=== PATIENT | male | born 1975 | race Caucasian/White ===

== ENCOUNTER 2018-02-19 05:41 | Emergency (ER) | payer OTHER ==
[2018-02-19] MEDS ORDERED: LORAZEPAM 1 MG TABLET ONE (06:26)
[2018-02-19 06:38] LABS: Absolute Lymphocytes (CBC) 2.4 K/uL (0.7-4.9); Absolute Monocytes 0.6 K/uL (0.1-1.3); Absolute Neutrophil 5.9 K/uL (1.8-8.0); Basophils % 0.7 % (0-1.3); Eosinophils % 1.2 % (0-4.4); Hematocrit 44.4 % (39.6-49.0); Lymphocytes % 26.9 % (15.3-44.8); MCH 33.6 pg (27.0-35.0); MCV 96.9 fL (80-100); MPV 10.3 fL (7.6-11.3); Monocytes % 6.2 % (3.3-12.3); RBC Red Blood Cell Count 4.58 M/uL (4.33-5.43)
[2018-02-19 06:43] LABS: Albumin 3.2 g/dL (3.4-5.0); Bilirubin Direct 0.1 mg/dL (0-0.2); Bilirubin Total 0.3 mg/dL (0.2-1.0); Potassium 4.5 mmol/L (3.5-5.1); Protein, Total 8.1 g/dL (6.4-8.2)
[2018-02-19 08:23] LABS: Barbiturates NEGATIVE (NEGATIVE); Benzodiazepines NEGATIVE (NEGATIVE); Cocaine NEGATIVE (NEGATIVE); METHAMPHETAM NEGATIVE (NEGATIVE); Methadone NEGATIVE (NEGATIVE); Opiates NEGATIVE (NEGATIVE); Phencyclidine NEGATIVE (NEGATIVE); THC Cannibis NEGATIVE (NEGATIVE)
[2018-02-19 14:54] LABS: Urine Blood 3+ (NEG); Urine Glucose NEGATIVE (NEG); Urine Protein 2+ (NEG); Urine pH 6.5 (5.0-7.0)
[2018-02-19] MEDS ORDERED: NICOTINE 21 MG/PAT TD ONE (14:58)
--- NOTE | 2018-02-20 10:11 | EDPHYS ---
Physician Documentation [facility] Name: Gil Shahid Age: 42 yrs Sex: Male : 1975 Arrival Date: 02/19/2018 Time: 05:42 Bed 6 Private MD: ED Physician Je Navarro HPI: 02/19 06:52 This 42 yrs old Male presents to ER via EMS with complaints of Psych Problem. kav 06:52 The patient presents to the emergency department with depression, psychosis, has kav experienced auditory hallucinations, has delusions, . Onset: The symptoms/episode began/occurred at an unknown time. Past psychiatric history: Prior diagnosis: schizophrenia. Associated signs and symptoms: Pertinent positives; anxiety, delusions, hallucinations. Severity of symptoms: At their worst the symptoms were moderate just prior to arrival. The patient has experienced similar episodes in the past, a few times. . Historical: - Allergies: 05:54 PENICILLINS; ak1 - Home Meds: 05:54 Latuda oral oral [Active]; ak1 - PMHx: 05:54 AIDS; Depression; Schizophrenia; ak1 - PSHx: 05:54 Unable to obtain; ak1 - Immunization history:: Adult Immunizations unknown. - Social history:: Smoking status: unknown. - Ebola Screening: : No symptoms or risks identified at this time. - Family history:: not pertinent. - Hospitalizations: : No recent hospitalization is reported. ROS: 06:55 Constitutional: Negative for fever, chills, and weight loss, Eyes: Negative for injury, kav pain, redness, and discharge, ENT: Negative for injury, pain, and discharge, Neck: Negative for injury, pain, and swelling, Cardiovascular: Negative for chest pain, palpitations, and edema, Respiratory: Negative for shortness of breath, cough, wheezing, and pleuritic chest pain, Abdomen/GI: Negative for abdominal pain, nausea, vomiting, diarrhea, and constipation, Back: Negative for injury and pain, : Negative for injury, bleeding, discharge, and swelling, MS/Extremity: Negative for injury and deformity, Skin: Negative for injury, rash, and discoloration, Neuro: Negative for headache, weakness, numbness, tingling, and seizure, Allergy/Immunology: Negative for hives, rash, and allergies, Endocrine: Negative for neck swelling, polydipsia, polyuria, polyphagia, and marked weight changes, Hematologic/Lymphatic: Negative for swollen nodes, abnormal bleeding, and unusual bruising. 06:55 Psych: Positive for anxiety, auditory hallucinations. Exam: 06:55 Constitutional: This is a well developed, well nourished patient who is awake, alert, kav and in no acute distress. Head/Face: Normocephalic, atraumatic. Eyes: Pupils equal round and reactive to light, extra-ocular motions intact. Lids and lashes normal. Conjunctiva and sclera are non-icteric and not injected. Cornea within normal limits. Periorbital areas with no swelling, redness, or edema. ENT: Nares patent. No nasal discharge, no septal abnormalities noted. Tympanic membranes are normal and external auditory canals are clear. Oropharynx with no redness, swelling, or masses, exudates, or evidence of obstruction, uvula midline. Mucous membranes moist. Neck: Trachea midline, no thyromegaly or masses palpated, and no cervical lymphadenopathy. Supple, full range of motion without nuchal rigidity, or vertebral point tenderness. No Meningismus. Chest/axilla: Normal chest wall appearance and motion. Nontender with no deformity. No lesions are appreciated. Cardiovascular: Regular rate and rhythm with a normal S1 and S2. No gallops, murmurs, or rubs. Normal PMI, no JVD. No pulse deficits. Respiratory: Lungs have equal breath sounds bilaterally, clear to auscultation and percussion. No rales, rhonchi or wheezes noted. No increased work of breathing, no retractions or nasal flaring. Abdomen/GI: Soft, non-tender, with normal bowel sounds. No distension or tympany. No guarding or rebound. No evidence of tenderness throughout. Back: No spinal tenderness. No costovertebral tenderness. Full range of motion. Skin: Warm, dry with normal turgor. Normal color with no rashes, no lesions, and no evidence of cellulitis. MS/ Extremity: Pulses equal, no cyanosis. Neurovascular intact. Full, normal range of motion. Neuro: Awake and alert, GCS 15, oriented to person, place, time, and situation. Cranial nerves II-XII grossly intact. Motor strength 5/5 in all extremities. Sensory grossly intact. Cerebellar exam normal. Normal gait. 06:55 Psych: exam not indicated, Behavior/mood is cooperative, anxious, Affect is calm, Oriented to Judgement / Insight is impaired. Delusions/hallucinations Vital Signs: 05:44 BP 127 / 89; Pulse 95; Resp 20; Temp 97.8(O); Pulse Ox 97% on R/A; Weight 156.94 kg ak1 (R); Height 6 ft. 3 in. (190.50 cm) (R); Pain 0/10; 07:10 BP 114 / 84; Pulse 79; Resp 18 S; Temp 98.3(O); Pulse Ox 95% on R/A; Pain 0/10; aa5 08:10 BP 120 / 73; Pulse 73; Resp 18 S; Pulse Ox 98% on R/A; Pain 0/10; aa5 10:11 BP 117 / 81; Pulse 80; Resp 20 S; Pulse Ox 98% on R/A; aa5 13:51 BP 136 / 99; Pulse 83; Resp 18 S; Temp 98.3(TE); Pulse Ox 100% on R/A; Pain 0/10; aa5 16:55 BP 126 / 77; Pulse 82; Resp 16 S; Temp 98.0(TE); Pulse Ox 99% on R/A; Pain 0/10; aa5 20:46 BP 110 / 66; Pulse 79; Resp 18; Pulse Ox 100% on R/A; mt 02/20 05:38 BP 114 / 72; Pulse 82; Resp 18; Pulse Ox 98% on R/A; mt 07:30 BP 118 / 78; Pulse 84; Resp 18; Pulse Ox 99% on R/A; ph 10:30 BP 122 / 82; Pulse 83; Resp 18; Temp 97.8; Pulse Ox 97% on R/A; ph 02/19 05:44 Body Mass Index 43.25 (156.94 kg, 190.50 cm) ak1 MDM: 02/19 06:30 Medical screening is not applicable. ka 06:55 Data reviewed: vital signs, nurses notes. kav 10:32 ED course: patient with paranoid and delusional behavior. [facility] here to evaluate [facility] patient and recommends inpatient behavioral facility for further evaluation and treatment.. 11:45 ED course: [facility] reports that they are "...at capacity". kav 13:45 ED course: continuing to find acceptance at inpatient psyche facility. kabrayan 17:57 Transition of care: After a detail discussion of the patient's case, care is kabrayan transferred to Shelli WINKLER. 02/20 09:50 ED course: Consultation with family caseworker Tamera at [facility]. Patient does not have pm1 AIDS/HIV. It is a part of his paranoia and delusions. He believes that he is taking Latuda for HIV and AIDS. Tamera recommended transfer due to patient reporting to her that he is afraid that his father would kill him and that he might just as well go ahead and kill himself. RN checked with pharmacies where patient has his medications filled. Patient does not take any HIV or AIDS medications. Patient has not filled his medications since July 2017. Contacted patient's sister and she is not aware of her brother having HIV or AIDS. 09:59 Physician consultation: MD March was called at 10:00, was contacted at 10:00, pm1 regarding regarding transfer, patient's condition, and will see patient. 02/19 05:52 Order name: Basic Metabolic Panel; Complete Time: 07:02 02/19 05:52 Order name: CBC with Diff; Complete Time: 07:02 02/19 05:52 Order name: ETOH Level; Complete Time: 07:02 02/19 05:52 Order name: Hepatic Function; Complete Time: 07:02 02/19 05:52 Order name: Urine Drug Screen; Complete Time: 08:38 02/19 08:14 Order name: Urine Dipstick--Ancillary (enter results); Complete Time: 15:18 eb 02/19 15:18 Interpretation: Abnormal. jose j 02/19 05:52 Order name: IV Saline Lock; Complete Time: 06:14 02/19 05:52 Order name: Labs collected and sent; Complete Time: 06:14 gs 02/19 11:27 Order name: Diet Regular; Complete Time: 11:27 aa5 02/19 14:59 Order name: Diet Regular; Complete Time: 15:00 aa5 02/20 07:21 Order name: Diet Regular; Complete Time: 07:35 ph 02/19 05:52 Order name: Urine Dipstick-Ancillary (obtain specimen); Complete Time: 08:10 gs Administered Medications: 02/19 06:22 Drug: Ativan 2 mg Route: PO; ak1 06:23 Follow up: Response: No adverse reaction ak1 14:57 CANCELLED (Physician Discretion): Nicotine 14 mg/24 hr 1 patches Transdermal once aa5 14:58 Drug: Nicotine 21 mg/24 hr 1 patches {Note: placed to left arm per pt's request (not aa5 chest).} Route: Transdermal; Site: anterior chest wall; Disposition: 02/21 06:48 Co-signature as Attending Physician, Je Navarro MD. Disposition: 02/20/18 10:09 Transfer ordered to Psych Facility. Diagnosis are Suicidal ideations, Hallucinations, unspecified. - Reason for transfer: Specialty. - Accepting physician is Dr. March at [facility]. - Condition is Stable. - Problem is new. - Symptoms have improved. Signatures: Dispatcher [employer] EDMS Domitila Earl, BARREL LINER BARREL LINER Sara Bailey RN RALF aa5 Rimma Olivas RN RN ak1 Faina Alejandra RN RALF John Hudson, RETAIL MORTGAGE BANKER RETAIL MORTGAGE BANKER pm1 Je Navarro MD MD Corrections: (The following items were deleted from the chart) 02/19 14:57 14:45 Nicotine Patch 14 mg/24 hr 1 patches Transdermal once ordered. beto aa5 02/20 11:06 10:09 02/20/2018 10:09 Transfer ordered to Psych Facility. Diagnosis is Suicidal ph ideations; Hallucinations, unspecified. Reason for transfer: Specialty. Accepting physician is Dr. March at [facility]. Condition is Stable. Problem is new. Symptoms have improved. pm1
--- NOTE | 2018-02-20 10:11 | ER ---
Nurse's Notes [facility] Name: Gil Shahid Age: 42 yrs Sex: Male : 1975 Arrival Date: 02/19/2018 Time: 05:42 Bed 6 Private MD: Diagnosis: Suicidal ideations;Hallucinations, unspecified Presentation: 02/19 05:45 Presenting complaint: EMS states: pt is not taking his psych medications. pt lives with ak1 his dad, family does not want pt at the house. pt and EMS denies suicidal ideations, denies homicidal ideations. pt stated the voices in his ear told him to take his latuda. Transition of care: patient was not received from another setting of care. Onset of symptoms was February 19, 2018. Risk Assessment: Do you want to hurt yourself or someone else? Patient reports no desire to harm self or others. Initial Sepsis Screen: Does the patient meet any 2 criteria? No. Patient's initial sepsis screen is negative. Does the patient have a suspected source of infection? No. Patient's initial sepsis screen is negative. Care prior to arrival: None. 05:45 Method Of Arrival: EMS: [facility] ak1 05:45 Acuity: MEGA 2 ak1 Triage Assessment: 05:54 General: Appears in no apparent distress. Behavior is anxious. Pain: Denies pain. EENT: ak1 No signs and/or symptoms were reported regarding the EENT system. Neuro: Level of Consciousness is awake, alert, obeys commands, Oriented to person, place, Moves all extremities. Gait is steady, Speech is normal. Cardiovascular: No deficits noted. Respiratory: No deficits noted. GI: No signs and/or symptoms were reported involving the gastrointestinal system. : No signs and/or symptoms were reported regarding the genitourinary system. Derm: No signs and/or symptoms reported regarding the dermatologic system. Musculoskeletal: No signs and/or symptoms reported regarding the musculoskeletal system. Historical: - Allergies: 05:54 PENICILLINS; ak1 - Home Meds: 05:54 Latuda oral oral [Active]; ak1 - PMHx: 05:54 AIDS; Depression; Schizophrenia; ak1 - PSHx: 05:54 Unable to obtain; ak1 - Immunization history:: Adult Immunizations unknown. - Social history:: Smoking status: unknown. - Ebola Screening: : No symptoms or risks identified at this time. - Family history:: not pertinent. - Hospitalizations: : No recent hospitalization is reported. Screenin:57 Abuse screen: Denies threats or abuse. Denies injuries from another. Nutritional ak1 screening: No deficits noted. Tuberculosis screening: No symptoms or risk factors identified. Fall Risk None identified. Assessment: 05:57 Reassessment: Patient appears in no apparent distress at this time. No changes from ak1 previously documented assessment. see triage assessment. 07:05 General: Appears comfortable, obese, Behavior is calm, cooperative, Pt states "I took aa5 latuda yesterday". . Pain: Denies pain. Neuro: Level of Consciousness is alert, obeys commands, Drowsy. Oriented to person, place, time, situation. Cardiovascular: Heart tones S1 S2 present Rhythm is regular. Respiratory: Airway is patent Respiratory effort is even, unlabored, Respiratory pattern is regular, symmetrical, Breath sounds are clear bilaterally. GI: Abdomen is obese, Bowel sounds present X 4 quads. Abd is soft and non tender X 4 quads. : No signs and/or symptoms were reported regarding the genitourinary system. EENT: No signs and/or symptoms were reported regarding the EENT system. Derm: Skin is pink, warm \\T\\ dry. Musculoskeletal: Range of motion: intact in all extremities. 07:05 Reassessment: Pt notified of wait time for lab results, pt notified of need for urine aa5 specimen collection. . 08:10 Reassessment: Patient and/or family updated on plan of care and expected duration. Pain aa5 level reassessed. Patient is alert, oriented x 3, equal unlabored respirations, skin warm/dry/pink. Patient denies pain at this time. UDS sent to lab. . 09:10 Reassessment: Pt resting in bed with eyes closed, respirations even and unlabored, skin aa5 is pink/warm/dry. . 10:00 Reassessment: Patient is alert, oriented x 3, equal unlabored respirations, skin aa5 warm/dry/pink. Pt sitting up in bed. Pt no longer drowsy. Pt is delusional. Pt denies suicidal or homicidal ideations. . 10:30 Reassessment: [facility] lumber trimmer at bedside speaking to pt. . aa5 11:25 Reassessment: Patient is alert, oriented x 3, equal unlabored respirations, skin aa5 warm/dry/pink. Pt sitting up in bed watching TV. Pt given food tray. . 12:00 Reassessment: Patient is alert, oriented x 3, equal unlabored respirations, skin aa5 warm/dry/pink. Pt ate 100% of food, pt tolerated well. . 12:54 Reassessment: Pt resting in bed with eyes closed, respirations even and unlabored, skin aa5 is pink/warm/dry. . 13:53 Reassessment: Patient is alert, oriented x 3, equal unlabored respirations, skin aa5 warm/dry/pink. Pt sitting up in bed watching TV. Pt eating a snack at this time. . 14:40 Reassessment: Patient is alert, oriented x 3, equal unlabored respirations, skin aa5 warm/dry/pink. Pt requesting to go outside and smoke, pt was notified that this is a smoke-free campus and I told pt that I will ask provider for nicotine patch. Pt verbalized understanding and agrees to nicotine patch. Awaiting approval to psych facility, pt notified of wait, pt verbalized understanding. Pt appears calm. . 15:04 Reassessment: Pt resting in bed with eyes closed, respirations even and unlabored, skin aa5 is pink/warm/dry. . 16:56 Reassessment: Patient is alert, oriented x 3, equal unlabored respirations, skin aa5 warm/dry/pink. Pt sitting up in bed eating, pt tolerating well. Awaiting approval to psych facility . 18:00 Reassessment: Pt resting in bed with eyes closed, respirations even and unlabored, skin aa5 is pink/warm/dry. . 19:10 General: Appears in no apparent distress. Behavior is calm, cooperative. Pain: Denies ea pain. Neuro: Level of Consciousness is awake, alert, obeys commands, Oriented to person, place, time, situation. Cardiovascular: Patient's skin is warm and dry. Respiratory: Airway is patent Respiratory effort is even, unlabored, Respiratory pattern is regular, symmetrical. Derm: Skin is pink, warm \\T\\ dry. Musculoskeletal: Circulation, motion, and sensation intact. 19:15 Reassessment: Report given to Harjinder at [facility] . aa5 22:00 Reassessment: Patient and/or family updated on plan of care and expected duration. Pain ea level reassessed. Patient is alert, oriented x 3, equal unlabored respirations, skin warm/dry/pink. 02/20 01:00 Reassessment: Patient and/or family updated on plan of care and expected duration. Pain ea level reassessed. Pt resting with eyes closed, respirations even and unlabored. Chest expansions even and symmetrical. No s/s of pain or discomfort noted at this time. 03:06 Reassessment: Patient and/or family updated on plan of care and expected duration. Pain ea level reassessed. Patient is alert, oriented x 3, equal unlabored respirations, skin warm/dry/pink. Patient denies pain at this time. 04:57 Reassessment: Patient and/or family updated on plan of care and expected duration. Pain ea level reassessed. Patient is alert, oriented x 3, equal unlabored respirations, skin warm/dry/pink. 05:27 Reassessment: Patient and/or family updated on plan of care and expected duration. Pain ea level reassessed. Patient is alert, oriented x 3, equal unlabored respirations, skin warm/dry/pink. 07:30 Reassessment: Patient appears in no apparent distress at this time. Patient and/or ph family updated on plan of care and expected duration. Pain level reassessed. Pt appears to be sleeping w/ equal unlabored respirations. 08:30 Reassessment: Patient appears in no apparent distress at this time. Patient and/or ph family updated on plan of care and expected duration. Pain level reassessed. Patient is alert, oriented x 3, equal unlabored respirations, skin warm/dry/pink. Pt awake, denies pain, awaiting breakfast, MEHRDAD Lopez at bedside to speak w/ pt. 09:15 Reassessment: nurse to nurse report given to Errol at [facility] in [place], she ph stated that they will likely accept pt but since pt has AIDS listed as a hx that he will have to bring his own medication, when pt questioned about medications he states, " I take Latuda and that's it.". 09:45 Reassessment: Patient appears in no apparent distress at this time. Patient and/or ph family updated on plan of care and expected duration. Pain level reassessed. Patient is alert, oriented x 3, equal unlabored respirations, skin warm/dry/pink. Spoke w/ [facility] who reports that pt's only medications are psychiatric meds, also spoke w/ pt's sister Nicole Shahid who reports that the only known hx that the pt has is paranoid/delusional schizophernia. 11:03 Reassessment: Patient appears in no apparent distress at this time. Patient and/or ph family updated on plan of care and expected duration. Pain level reassessed. Patient is alert, oriented x 3, equal unlabored respirations, skin warm/dry/pink. Report given to [facility], pt transferred to [facility] in [place]. Psych: 02/19 05:58 Subjective: Patient's mood is anxious Delusions are denied, Hallucinations are ak1 auditory. Objective: Patient is cooperative, Speech is normal. Objective: Affect is flat. Suicide Risk Assessment: Sad Person Scale: Sex of patient: Male: Score 1 point. Age of patient: Score 0 point if patient falls outside of specified age parameters. Safety Checks: pt denies suicidal or homicidal ideations. pt stated [facility] usually picks him up from home and drives him to a facility. Commitment: Patient will be a voluntary commitment. 06:23 Interventions: pt denies suicidal or homicidal ideations. ak1 11:00 Pt denies substance abuse. aa5 Vital Signs: 05:44 BP 127 / 89; Pulse 95; Resp 20; Temp 97.8(O); Pulse Ox 97% on R/A; Weight 156.94 kg ak1 (R); Height 6 ft. 3 in. (190.50 cm) (R); Pain 0/10; 07:10 BP 114 / 84; Pulse 79; Resp 18 S; Temp 98.3(O); Pulse Ox 95% on R/A; Pain 0/10; aa5 08:10 BP 120 / 73; Pulse 73; Resp 18 S; Pulse Ox 98% on R/A; Pain 0/10; aa5 10:11 BP 117 / 81; Pulse 80; Resp 20 S; Pulse Ox 98% on R/A; aa5 13:51 BP 136 / 99; Pulse 83; Resp 18 S; Temp 98.3(TE); Pulse Ox 100% on R/A; Pain 0/10; aa5 16:55 BP 126 / 77; Pulse 82; Resp 16 S; Temp 98.0(TE); Pulse Ox 99% on R/A; Pain 0/10; aa5 20:46 BP 110 / 66; Pulse 79; Resp 18; Pulse Ox 100% on R/A; mt 11 05:38 BP 114 / 72; Pulse 82; Resp 18; Pulse Ox 98% on R/A; mt 07:30 BP 118 / 78; Pulse 84; Resp 18; Pulse Ox 99% on R/A; ph 10:30 BP 122 / 82; Pulse 83; Resp 18; Temp 97.8; Pulse Ox 97% on R/A; ph 02/19 05:44 Body Mass Index 43.25 (156.94 kg, 190.50 cm) ak1 ED Course: 02/19 05:42 Patient arrived in ED. ds1 05:44 Rimma Olivas, RN is Primary Nurse. ak1 05:52 Triage completed. ak1 05:54 Arm band placed on Patient placed in an exam room, on a stretcher, Patient notified of ak1 wait time. 05:57 Patient has correct armband on for positive identification. Bed in low position. Call ak1 light in reach. Side rails up X2. Pulse ox on. NIBP on. 06:14 Inserted saline lock: 24 gauge in left wrist, using aseptic technique. Blood collected. ak1 06:20 Basic Metabolic Panel Sent. ds4 06:20 Hepatic Function Sent. ds4 06:20 CBC with Diff Sent. ds4 06:20 ETOH Level Sent. ds4 06:30 [facility] kav 06:30 Je Navarro MD is Attending Physician. kav 08:45 called and spoke with Katie at the [facility]/ She will page the screener to eb come evaluate the patient. 10:38 faxed patients chart and demographics to the following facilities in the attempt to eb transfer patient as recommended by the [facility] screener: [facility]. [facility], [facility], [facility], [place], [facility], [facility], [facility], [facility], [facility], and [facility]. 10:52 Adriana from [facility] called and said they do not have any beds at this time. eb 14:41 IV discontinued, intact, bleeding controlled, No redness/swelling at site. Pressure aa5 dressing applied, IV was dc'd per pt's request. 18:08 No provider procedures requiring assistance completed. aa5 19:22 Report given to RALF Joaquin and RALF Sheehan. aa5 02/20 07:21 called [facility] and spoke with Lata. She will page the dr again for doc to doc. gm 07:46 Primary Nurse role handed off by Rimma Olivas RN sv 07:46 Emily New, RN is Primary Nurse. sv 08:29 Primary Nurse role handed off by Emily New RN sv 08:29 Faina Alejandra, RALF is Primary Nurse. sv 08:53 connected the nurse from [facility] to do nurse to nurse on patient. gm 09:57 connected john BEARD to do doc to doc for patient transfer. 10:03 administrative approval was given by [facility]. Administered Medications: 02/19 06:22 Drug: Ativan 2 mg Route: PO; ak1 06:23 Follow up: Response: No adverse reaction ak1 14:57 CANCELLED (Physician Discretion): Nicotine 14 mg/24 hr 1 patches Transdermal once aa5 14:58 Drug: Nicotine 21 mg/24 hr 1 patches {Note: placed to left arm per pt's request (not aa5 chest).} Route: Transdermal; Site: anterior chest wall; Outcome: 02/20 10:09 ER care complete, transfer ordered by . pm1 11:05 Transferred by ground EMS [place]. to other acute care facility, Transfer form ph completed. 11:05 Condition: stable 11:05 Instructed on the need for transfer. 11:06 Patient left the ED. ph Signatures: Emily New, RN RALF Domitila Earl FNP FNP kav [place], Demi ds1 Sara Keita RN RN Alexey Lopez ds4 Rimma Olivas, RN RN ak1 Faina Alejandra RN RN John Hudson, MEHRDAD TREATING ENGINEER HELPER pm1 Pati Pagan mt, Elena, RN RN ea Botello, Elizabeth eb Moya, Gabriella Corrections: (The following items were deleted from the chart) 02/19 11:32 10:00 Reassessment: Patient is alert, oriented x 3, equal unlabored respirations, skin aa5 warm/dry/pink. Pt sitting up in bed. Pt no longer drowsy. Pt is delusional. . aa5 15:06 14:40 Reassessment: Patient is alert, oriented x 3, equal unlabored respirations, skin aa5 warm/dry/pink. Pt requesting to go outside and smoke, pt was notified that this is a smoke-free campus and I told pt that I will ask provider for was nicotine patch. Pt verbalized understanding and agrees to nicotine patch. . aa5 16:57 14:40 Reassessment: Patient is alert, oriented x 3, equal unlabored respirations, skin aa5 warm/dry/pink. Pt requesting to go outside and smoke, pt was notified that this is a smoke-free campus and I told pt that I will ask provider for nicotine patch. Pt verbalized understanding and agrees to nicotine patch. . aa5
[2018-02-20 11:38] VITALS: BP 122/82; TEMP 97.8; O2SAT 97
== END 2018-02-20 11:06 ==
LOC: ER 05:41
DX: F20.9 Schizophrenia, unspecified (principal); R45.851 Suicidal ideations
CPT/HCPCS: 36415; 80048; 80076; 80307; 80320; 81003; 85025; 99285

== ENCOUNTER 2018-08-07 18:08 | Emergency (ER) | payer OTHER ==
[2018-08-07 18:46] LABS: Barbiturates NEGATIVE (NEGATIVE); Benzodiazepines NEGATIVE (NEGATIVE); Cocaine NEGATIVE (NEGATIVE); METHAMPHETAM NEGATIVE (NEGATIVE); Methadone NEGATIVE (NEGATIVE); Opiates NEGATIVE (NEGATIVE); Phencyclidine NEGATIVE (NEGATIVE); THC Cannibis NEGATIVE (NEGATIVE)
[2018-08-07] MEDS ORDERED: ZIPRASIDONE MESYLA 20 MG/VIAL IM ONE (18:54)
[2018-08-07] MEDS ORDERED: WATER FOR INJ,STERILE 10 ML ONE (18:55)
[2018-08-07 19:28] LABS: Urine Blood 2+ (NEG); Urine Glucose NEGATIVE (NEG); Urine Protein NEGATIVE (NEG); Urine Specific Gravity 1.015 (1.005-1.030)
--- OUTSIDE RECORDS SUMMARY | 2018-08-07 19:51 | XMS REPORT ---
:1975 Author Organization [facility] Address Formerly [facility] [address] [place] [address] Care Team Providers Name Role Phone UNKNOWN, REFFERING Primary Care Provider Unavailable MARCIE BOWERS M.D. Unavailable Unavailable Problems This patient has no known problems. Allergies, Adverse Reactions, Alerts This patient has no known allergies or adverse reactions. Medications This patient has no known medications. Results Test Description Test Time Test Comments Text Results Atomic Results Result Comments Valproic Acid (Depakote),S 2017-02-21 08:19:00 Test Item Value Reference Range Comments Valproic Acid (test code=VALP) 74.6 ug/mL 50.0-100.0 Valproic Acid (Depakote),[id number] 11:01:00 Test Item Value Reference Range Comments Valproic Acid (test code=VALP) 46.8 ug/mL 50.0-100.0 Urinalysis [id number] 15:02:00 Test Item Value Reference Range Comments Color (test code=COLOR) Yellow Yellow,Straw,Pl yellow Clarity (test code=CLAR) Clear Clear Specific [place] (test code=SPGR) 1.020 1.001-1.035 pH (test code=PH) 6.5 5.0-9.0 Ketone (test code=KET) 5 mg/dL Negative Glucose (test code=GLUCUR) Negative mg/dL Negative Protein (test code=PROT) Negative mg/dL Negative Bilirubin (test code=BILI) Negative mg/dL Negative Occult Blood (test code=UDOB) Negative Negative Urobilinogen (test code=UROB) 8.0 mg/dL 0.2-1.0 Nitrite (test code=NIT) Negative Negative Leuk Esterase (test code=LEUK) Small Negative Micros Exam (test code=MEXAM) Indicated Epithelial Cells (test code=EPI) 0-2 /LPF 0-30 WBC, Urine (test code=UWBC) 0-5 /HPF 0-5 RBC, Urine (test code=URBC) 0-3 /HPF 0-5 Mucous, Urine (test code=UMUC) Trace /HPF Bacteria (test code=BACT) Few /HPF Valproic Acid (Depakote),[id number] 14:11:00 Test Item Value Reference Range Comments Valproic Acid (test code=VALP) 24.3 ug/mL 50.0-100.0 RPR, [id number] 04:22:00 Test Item Value Reference Range Comments RPR (test code=RPR) Non-Reactive Non-Reactive Thyroid Stimulating Hormone (TSH)2017-02-07 19:54:00 Test Item Value Reference Range Comments TSH (test code=TSH) 1.67 mIU/mL 0.270-4.200 Lipid [id number] 19:48:00 Test Item Value Reference Range Comments Cholesterol (test 188 mg/dL 0-200 code=CHOL) Triglycerides (test 193 mg/dL 9-200 code=TRIG) HDL (test code=HDL) 33 mg/dL 40-60 Chol/HDL (test 5.7 Ratio 0.0-5.0 code=CHOLPHDL) LDL, Calculated (test 116 0-130 (NOTE)RISK OF HEART code=LDLC) DISEASEPublished by Citizen Of The [place] Heart AssociationAnalyte Optimal Boderline Increased RiskCHOL <200 200-239 >240TRIG <150 150-199 >200HDL Male: >60 <40HDL Female: >60 <50LDL <100 130-159 >160LDL NEAR OPTIMAL IS 100-129 VLDL (test code=VLDL) 39 mg/dL 5-40 LDL/HDL (test code=LDLPHDL) 4 Urinalysis [id number] 14:49:00 Test Item Value Reference Range Comments Color (test code=COLOR) [place] Yellow,Straw,Pl yellow Clarity (test code=CLAR) Clear Clear Specific [place] (test 1.024 1.001-1.035 code=SPGR) pH (test code=PH) 7.0 5.0-9.0 Ketone (test code=KET) 15 mg/dL Negative Glucose (test code=GLUCUR) Negative mg/dL Negative Protein (test code=PROT) 25 mg/dL Negative Bilirubin (test code=BILI) See IctoTest mg/dL Negative Occult Blood (test code=UDOB) Negative Negative Urobilinogen (test code=UROB) 12.0 mg/dL 0.2-1.0 Nitrite (test code=NIT) Negative Negative Leuk Esterase (test code=LEUK) Small Negative Ictotest (test code=ICTOTEST) Confirmed Negative Negative,Confirmed Negative Micros Exam (test code=MEXAM) Indicated Epithelial Cells (test 3-5 /LPF 0-30 code=EPI) WBC, Urine (test code=UWBC) 0-5 /HPF 0-5 RBC, Urine (test code=URBC) 0-3 /HPF 0-5 Bacteria (test code=BACT) None /HPF Comprehensive Metabolic [id number] 13:47:00 Test Item Value Reference Range Comments Sodium (test code=NA) 136 mmol/L 135-145 Potassium (test code=K) 4.4 mmol/L 3.5-5.1 Chloride (test code=CL) 97 mmol/L 98-105 Carbon Dioxide (test 29 mmol/L 22-29 code=CO2) Glucose (test code=GLU) 109 mg/dL 70-115 Blood Urea Nitrogen 13 mg/dL 6-20 (test code=BUN) Creatinine (test 0.9 mg/dL 0.7-1.2 code=CREAT) Calcium (test code=CA) 8.7 mg/dL 8.3-10.5 Prot Total (test 6.5 g/dL 6.4-8.3 code=TP) Albumin (test code=ALB) 3.5 g/dL 3.5-5.2 A/G Ratio (test 1.2 Ratio code=AGRATIO) Globulin (test 3.0 2.9-3.1 code=GLOB) Bili Total (test 0.3 mg/dL 0.1-0.9 code=TBIL) Alk Phos (test 58 U/L 40-129 code=APHOS) AST (test code=AST) 14 U/L 1-40 ALT (test code=ALT) 15 U/L 1-41 BUN/Creatinine Ratio 14.4 (test code=BCRATIO) Anion Gap (test 10 mmol/L 7-16 code=AGAP) Estimated GFR (test >60 mL/min/1.73m2 eGFR (estimated Glomerular code=GFR) Filtration Rate) is an estimated value,calculated from the patient's serum creatinine using the MDRD equation.It is NOT the patient's actual GFR. The eGFR provides a more clinicallyuseful measure of kidney disease than serum creatinine alone.This calculation takes sex and race into account, if the informationis provided. If the race is not provided, and the patient isAfrican-Citizen Of The [place], multiply by 1.212. If sex is not provided, and thepatient is female, multiply by 0.742. Results for patients <18 years ofage have not been validated by the MDRD study and should be interpretedwith caution.eGFR Result Interpretation:eGFR > or=60 is in the Normal RangeeGFR < 60 may mean kidney diseaseeGFR < 15 may mean kidney failureRanges recommended by the National Kidney Foundation,http://nkdep.nih .gov Alcohol/Ethanol, [id number] 13:47:00 Test Item Value Reference Range Comments Alcohol, Ethyl (test <0.01 g/dL 0.00-0.01 Intoxicated 0.080 g/dL or code=ETOH) more [id number] 13:38:00 Test Item Value Reference Range Comments Amphetamine (test code=AMPH) Negative Negative For diagnostic purposes only, positive results should always be assessedin conjunctionwith the patient's medical history,clinical examination and otherfindings.To fulfill legal requirements, a more specific alternate chemical methodmust be used inorder to obtain a Confirmed analytical result. GC/MS is the preferred confirmatory method. Barbiturates (test code=JOSÉ MIGUEL) Negative Negative Benzodiazepine (test Negative Negative code=TATE) Cocaine (test code=COCA) Negative Negative Methadone (test code=MTHD) Negative Negative Opiates (test code=OPIA) Negative Negative PCP (test code=PCP) Negative Negative Propoxyphene (test Negative Negative code=PROPOX) THC (test code=THC) Negative Negative CBC with [id number] 13:29:00 Test Item Value Reference Range Comments WBC (test code=WBC) 7.9 K/cumm 4.4-10.5 RBC (test code=RBC) 4.67 M/cumm 4.10-5.70 Hemoglobin (test code=HGB) 15.6 gm/dL 13.4-17.4 Hematocrit (test code=HCT) 44.5 % 38.7-52.0 MCV (test code=MCV) 95.2 fL 80-100 MCH (test code=MCH) 33.3 pg 27.0-32.5 MCHC (test code=MCHC) 35.0 g/dL 32.0-37.5 RDW (test code=RDW) 13.2 % 11.5-14.5 Platelet Count (test code=PLTCT) 178 K/cumm 140-440 MPV (test code=MPV) 9.1 fL Diff Method (test code=DIFFM) Auto Neutrophil (test code=NEUT) 57.0 % 36-70 Lymphocyte (test code=LYMPH) 32.2 % 12-44 Monocyte (test code=MONO) 7.6 % 0-11 Eosinophil (test code=EOS) 2.5 % 0-7 Basophil (test code=BASO) 0.6 % 0-2 Neutro Abs (test code=ANEUT) 4.5 K/cumm 1.6-7.4 Lymph Abs (test code=ALYMPH) 2.6 K/cumm 0.5-4.6 [place] Abs (test code=AMONO) 0.6 K/cumm 0.0-1.2 Eos Abs (test code=AEOS) 0.19 K/cumm 0.00-0.74 Baso Abs (test code=ABASO) 0.1 K/cumm 0.00-0.21
[2018-08-07 20:05] LABS: Absolute Lymphocytes (CBC) 2.4 K/uL (0.7-4.9); Absolute Monocytes 0.6 K/uL (0.1-1.3); Absolute Neutrophil 7.8 K/uL (1.8-8.0); Basophils % 0.7 % (0-1.3); Eosinophils % 1.3 % (0-4.4); Hematocrit 41.9 % (39.6-49.0); Lymphocytes % 22.2 % (15.3-44.8); MPV 10.1 fL (7.6-11.3); Monocytes % 5.3 % (3.3-12.3); RBC Red Blood Cell Count 4.69 M/uL (4.33-5.43)
[2018-08-07 20:13] LABS: Protime INR 0.95
[2018-08-07 20:21] LABS: ALT/SGPT 19 U/L (12-78); AST/SGOT 11 U/L (15-37); Albumin 3.4 g/dL (3.4-5.0); Alkaline Phosphatase 69 U/L (45-117); BUN Blood Urea Nitrogen 18 mg/dL (7-18); Bicarbonate 32 mmol/L (21-32); Bilirubin Direct 0.2 mg/dL (0-0.2); Bilirubin Total 0.5 mg/dL (0.2-1.0); Glucose Level 123 mg/dL (74-106); Potassium 3.8 mmol/L (3.5-5.1); Protein, Total 7.6 g/dL (6.4-8.2); Sodium Level 142 mmol/L (136-145)
--- NOTE | 2018-08-07 22:11 | EDPHYS ---
Physician Documentation [facility] Name: Gil Shahid Age: 43 yrs Sex: Male : 1975 Arrival Date: 08/07/2018 Time: 18:10 Bed 20 Private MD: ED Physician Jair Ortega HPI: 08/07 20:44 This 43 yrs old Male presents to ER via EMS with complaints of psychosis. snw 20:44 The patient presents to the emergency department with anxiety, paranoia, psychosis, has snw delusions. Onset: The symptoms/episode began/occurred at an unknown time. Past psychiatric history: Prior diagnosis: schizophrenia, Psychiatric medications include: the patient has a previous inpatient psychiatric history, at unknown, pt mentions [facility] but then states he is allergic to [place]. Associated signs and symptoms: Pertinent positives; delusions, paranoia, Pertinent negatives: abdominal pain, chest pain, homicidal ideation, suicide ideation. Severity of symptoms: At their worst the symptoms were moderate severe in the emergency department the symptoms are unchanged. The patient has experienced similar episodes in the past. It is unknown whether or not the patient has recently seen a physician. pt cannot give a lot of information. He has delusions, paranoia that people are after him, that he has been beaten, thrown out and is concerned and wishes me to wipe out his thoughts. Historical: - Allergies: 18:18 PENICILLINS; em - PMHx: 18:18 Depression; Schizophrenia; em - Immunization history:: Adult Immunizations unknown. - Social history:: Smoking status: unknown. - Ebola Screening: : Patient negative for fever greater than or equal to 101.5 degrees Fahrenheit, and additional compatible Ebola Virus Disease symptoms Patient denies exposure to infectious person Patient denies travel to an Ebola-affected area in the 21 days before illness onset No symptoms or risks identified at this time. ROS: 21:58 Eyes: Negative for injury, pain, redness, and discharge, ENT: Negative for injury, snw pain, and discharge, Neck: Negative for injury, pain, and swelling, Cardiovascular: Negative for chest pain, palpitations, and edema, Respiratory: Negative for shortness of breath, cough, wheezing, and pleuritic chest pain, Abdomen/GI: Negative for abdominal pain, nausea, vomiting, diarrhea, and constipation, Back: Negative for injury and pain, : Negative for injury, bleeding, discharge, and swelling, MS/Extremity: Negative for injury and deformity, Skin: Negative for injury, rash, and discoloration, Neuro: Negative for headache, weakness, numbness, tingling, and seizure. 21:58 Constitutional: Positive for poor PO intake. 21:58 Psych: Positive for psychosis, flight of ideas, paranoia, and delusions. Exam: 19:30 Constitutional: The patient appears alert, awake, anxious, obese, restless. snw 19:30 Head/Face: Normocephalic, atraumatic. Eyes: Pupils equal round and reactive to light, snw extra-ocular motions intact. Lids and lashes normal. Conjunctiva and sclera are non-icteric and not injected. Cornea within normal limits. Periorbital areas with no swelling, redness, or edema. ENT: Nares patent. No nasal discharge, no septal abnormalities noted. Tympanic membranes are normal and external auditory canals are clear. Oropharynx with no redness, swelling, or masses, exudates, or evidence of obstruction, uvula midline. Mucous membranes moist. Neck: Trachea midline, no thyromegaly or masses palpated, and no cervical lymphadenopathy. Supple, full range of motion without nuchal rigidity, or vertebral point tenderness. No Meningismus. Chest/axilla: Normal chest wall appearance and motion. Nontender with no deformity. No lesions are appreciated. Respiratory: Lungs have equal breath sounds bilaterally, clear to auscultation and percussion. No rales, rhonchi or wheezes noted. No increased work of breathing, no retractions or nasal flaring. Abdomen/GI: Soft, non-tender, with normal bowel sounds. No distension or tympany. No guarding or rebound. No evidence of tenderness throughout. Back: No spinal tenderness. No costovertebral tenderness. Full range of motion. Skin: Warm, dry with normal turgor. Normal color with no rashes, no lesions, and no evidence of cellulitis. MS/ Extremity: Pulses equal, no cyanosis. Neurovascular intact. Full, normal range of motion. Neuro: Awake and alert, GCS 15, oriented to person, place, time, and situation. Cranial nerves II-XII grossly intact. Motor strength 5/5 in all extremities. Sensory grossly intact. Cerebellar exam normal. Normal gait. Psych: Awake, alert, with orientation to person. Behavior, mood, and affect are animated, paranoid, delusional, and with flight of ideas. 19:30 Cardiovascular: Rate: normal, tachycardic, Rhythm: regular, Pulses: no pulse deficits are appreciated, Heart sounds: normal. 19:40 ECG was reviewed by the Attending Physician. snw Vital Signs: 18:18 BP 139 / 65; Pulse 106; Resp 20; Pulse Ox 99% on R/A; Height 6 ft. 5 in. (195.58 cm); em Pain 0/10; 19:30 BP 137 / 62; Pulse 89; Resp 20 S; Pulse Ox 98% on R/A; cc3 22:25 BP 106 / 55; Pulse 78; Resp 19 S; Temp 97.8(TE); Pulse Ox 98% on R/A; cc3 MDM: 18:11 Patient medically screened. snw 22:06 Data reviewed: vital signs, nurses notes. Data interpreted: Pulse oximetry: on room air snw is 99 %. Interpretation: normal. Counseling: I had a detailed discussion with the patient and/or guardian regarding: the historical points, exam findings, and any diagnostic results supporting the discharge/admit diagnosis, the presence of at least one elevated blood pressure reading (>120/80) during this emergency department visit, lab results, the need to transfer to another facility, for higher level of care, [facility] does not immediately have the required specialist. Physician consultation: Dr. Anglin was called at 22:08, was contacted at 22:08, regarding regarding transfer, to a psychiatric hospital. Dr. Anglin kindly accepts pt in transfer on voluntary basis. 08/07 18:14 Order name: Acetaminophen; Complete Time: 20:25 snw 08/07 18:14 Order name: Basic Metabolic Panel; Complete Time: 20:25 snw 08/07 18:14 Order name: CBC with Diff; Complete Time: 20:18 snw 08/07 18:14 Order name: ETOH Level; Complete Time: 20:22 snw 08/07 18:14 Order name: Hepatic Function; Complete Time: 20:25 snw 08/07 18:14 Order name: PT-INR; Complete Time: 20:18 snw 08/07 18:14 Order name: Ptt, Activated; Complete Time: 20:18 snw 08/07 18:14 Order name: Salicylate; Complete Time: 20:41 snw 08/07 18:14 Order name: Urine Drug Screen; Complete Time: 18:54 snw 08/07 18:14 Order name: EKG; Complete Time: 18:15 snw 08/07 18:14 Order name: EKG - Nurse/Tech; Complete Time: 19:37 snw 08/07 18:32 Order name: Diet Regular; Complete Time: 18:33 em 08/07 18:35 Order name: Urine Dipstick--Ancillary (enter results); Complete Time: 19:33 eb 08/07 18:14 Order name: IV Saline Lock; Complete Time: 18:39 snw 08/07 18:14 Order name: Labs collected and sent; Complete Time: 20:06 snw 08/07 18:14 Order name: Urine Dipstick-Ancillary (obtain specimen); Complete Time: 18:39 snw Administered Medications: 18:52 Drug: Geodon 20 mg Route: IM; Site: right deltoid; em 19:30 Follow up: Response: No adverse reaction cc3 Disposition: 08/08 22:56 Co-signature as Attending Physician, Jair Ortega MD. rn Disposition: 08/07/18 22:10 Transfer ordered to Psych Facility. Diagnosis are Schizophrenia, unspecified, Psychotic disorder with delusions due to known physiological condition. - Reason for transfer: Higher level of care. - Accepting physician is Dr. Anglin. - Condition is Stable. - Problem is an acute exacerbation. - Symptoms are unchanged. Signatures: Dispatcher [employer] Marce Valerio, PUTAWAY DRIVER-C PUTAWAY DRIVER-[address], PIG FARM MANAGER PIG FARM MANAGER em Jair Ortega MD MD rn Cordel, Charlene cc3 Corrections: (The following items were deleted from the chart) 08/07 19:13 18:18 PMHx: AIDS; em em 21:58 19:30 Head/Face: Normocephalic, atraumatic. Eyes: Pupils equal round and reactive to snw light, extra-ocular motions intact. Lids and lashes normal. Conjunctiva and sclera are non-icteric and not injected. Cornea within normal limits. Periorbital areas with no swelling, redness, or edema. ENT: Nares patent. No nasal discharge, no septal abnormalities noted. Tympanic membranes are normal and external auditory canals are clear. Oropharynx with no redness, swelling, or masses, exudates, or evidence of obstruction, uvula midline. Mucous membranes moist. Neck: Trachea midline, no thyromegaly or masses palpated, and no cervical lymphadenopathy. Supple, full range of motion without nuchal rigidity, or vertebral point tenderness. No Meningismus. Chest/axilla: Normal chest wall appearance and motion. Nontender with no deformity. No lesions are appreciated. Respiratory: Lungs have equal breath sounds bilaterally, clear to auscultation and percussion. No rales, rhonchi or wheezes noted. No increased work of breathing, no retractions or nasal flaring. Abdomen/GI: Soft, non-tender, with normal bowel sounds. No distension or tympany. No guarding or rebound. No evidence of tenderness throughout. Back: No spinal tenderness. No costovertebral tenderness. Full range of motion. Skin: Warm, dry with normal turgor. Normal color with no rashes, no lesions, and no evidence of cellulitis. MS/ Extremity: Pulses equal, no cyanosis. Neurovascular intact. Full, normal range of motion. Neuro: Awake and alert, GCS 15, oriented to person, place, time, and situation. Cranial nerves II-XII grossly intact. Motor strength 5/5 in all extremities. Sensory grossly intact. Cerebellar exam normal. Normal gait. Psych: Awake, alert, with orientation to person, place and time. Behavior, mood, and affect are within normal limits. snw 23:14 22:10 08/07/2018 22:10 Transfer ordered to Psych Facility. Diagnosis is Schizophrenia, cc3 unspecified; Psychotic disorder with delusions due to known physiological condition. Reason for transfer: Higher level of care. Accepting physician is Dr. Anglin. Condition is Stable. Problem is an acute exacerbation. Symptoms are unchanged. snw
--- NOTE | 2018-08-07 22:11 | ER ---
Nurse's Notes [facility] Name: Gil Shahid Age: 43 yrs Sex: Male : 1975 Arrival Date: 08/07/2018 Time: 18:10 Bed 20 Private MD: Diagnosis: Schizophrenia, unspecified;Psychotic disorder with delusions due to known physiological condition Presentation: 08/07 18:13 Presenting complaint: EMS states: called out for auditory hallucinations, denies SI or em HI, pt states, "he's going to apply for the [employer]" and "wants a small needle because they always do organ transplants" pt drowsy, denies doing drugs or ETOH. Transition of care: patient was not received from another setting of care. Onset of symptoms was August 07, 2018. Risk Assessment: Do you want to hurt yourself or someone else? Patient reports no desire to harm self or others. Initial Sepsis Screen: Does the patient meet any 2 criteria? No. Patient's initial sepsis screen is negative. Does the patient have a suspected source of infection? No. Patient's initial sepsis screen is negative. Care prior to arrival: None. 18:13 Method Of Arrival: EMS: [facility] em 18:35 Acuity: MEGA 2 hb Triage Assessment: 18:18 General: Appears in no apparent distress. comfortable, Behavior is cooperative, drowsy. em Pain: Denies pain. Historical: - Allergies: 18:18 PENICILLINS; em - PMHx: 18:18 Depression; Schizophrenia; em - Immunization history:: Adult Immunizations unknown. - Social history:: Smoking status: unknown. - Ebola Screening: : Patient negative for fever greater than or equal to 101.5 degrees Fahrenheit, and additional compatible Ebola Virus Disease symptoms Patient denies exposure to infectious person Patient denies travel to an Ebola-affected area in the 21 days before illness onset No symptoms or risks identified at this time. Screenin:18 Abuse screen: no apparent signs noted. Nutritional screening: No deficits noted. em Tuberculosis screening: No symptoms or risk factors identified. Fall Risk None identified. Assessment: 18:18 General: Appears in no apparent distress. comfortable, obese, Behavior is calm, em cooperative, drowsy. Neuro: Level of Consciousness is awake, alert, obeys commands, Oriented to person, place, time, Moves all extremities. Speech is normal, Pupils are PERRLA. Cardiovascular: Capillary refill < 3 seconds Patient's skin is warm and dry. Respiratory: Airway is patent Respiratory effort is even, unlabored, Respiratory pattern is regular, symmetrical. Derm: Skin is intact, is healthy with good turgor, Skin is pink, warm \\T\\ dry. Musculoskeletal: Capillary refill < 3 seconds, Range of motion: intact in all extremities. 19:15 Reassessment: Patient appears in no apparent distress at this time. Patient and/or cc3 family updated on plan of care and expected duration. Pain level reassessed. Patient is alert, oriented x 3, equal unlabored respirations, skin warm/dry/pink. Received this male patient from morning shift [facility] as a case of auditory hallucinations still for phlebotomy as endorsed. 20:18 Reassessment: Patient appears in no apparent distress at this time. Patient and/or cc3 family updated on plan of care and expected duration. Pain level reassessed. Patient is alert, oriented x 3, equal unlabored respirations, skin warm/dry/pink. sitter at bedside. 21:25 Reassessment: Patient appears in no apparent distress at this time. Patient and/or cc3 family updated on plan of care and expected duration. Pain level reassessed. Patient is alert, oriented x 3, equal unlabored respirations, skin warm/dry/pink. sitter available at bedside. 22:30 Reassessment: Patient appears in no apparent distress at this time. Patient and/or cc3 family updated on plan of care and expected duration. Pain level reassessed. Patient is alert, oriented x 3, equal unlabored respirations, skin warm/dry/pink. Patient for transfer to [facility] as a case of Schizophrenia, psychotic disorder with delusions. Called for report and handed over to RALF Dejesus. Transfer form completed and signed by the patient himself. ED rate clerk to arrange for EMS transport of the patient. 23:10 Reassessment: Patient appears in no apparent distress at this time. Patient and/or cc3 family updated on plan of care and expected duration. Pain level reassessed. Patient is alert, oriented x 3, equal unlabored respirations, skin warm/dry/pink. [facility] came for patient transport, patient belongings given to EMS staff in a plastic bag. Patient left ER vitally stable by EMS stretcher. Patient denies pain at this time. Vital Signs: 18:18 BP 139 / 65; Pulse 106; Resp 20; Pulse Ox 99% on R/A; Height 6 ft. 5 in. (195.58 cm); em Pain 0/10; 19:30 BP 137 / 62; Pulse 89; Resp 20 S; Pulse Ox 98% on R/A; cc3 22:25 BP 106 / 55; Pulse 78; Resp 19 S; Temp 97.8(TE); Pulse Ox 98% on R/A; cc3 ED Course: 18:10 Patient arrived in ED. hb 18:[address] LVN is Primary Nurse. em 18:10 Marce Valerio FNP-C is PHCP. snw 18:10 Jair Ortega MD is Attending Physician. snw 18:18 Arm band placed on. em 18:18 Patient has correct armband on for positive identification. Placed in gown. Bed in low em position. Side rails up X2. Valuables inventory done. See valuables checklist. 18:30 Safety checks: Items removed: yes. Door open/sign placed on door: yes. Family/friend ms present: no. Sitter present: Yes. 18:35 Triage completed. hb 18:45 Safety checks: Items removed: yes. Door open/sign placed on door: yes. Family/friend ms present: no. Sitter present: Yes. 18:46 Diet: Patient given snack. ms 18:46 Missed attempt(s): 20 gauge in right antecubital area. Bleeding controlled, band aid ms applied, catheter tip intact. 19:00 Safety checks: Items removed: yes. Door open/sign placed on door: Patient placed in ag4 hallway bed. Family/friend present: no. Sitter present: Yes. 19:15 Safety checks: Items removed: yes. Door open/sign placed on door: yes. Family/friend ag4 present: no. Sitter present: Yes. 19:30 Safety checks: Items removed: yes. Door open/sign placed on door: yes. Family/friend ar5 present: no. Sitter present: Yes. 19:45 Safety checks: Items removed: yes. Door open/sign placed on door: yes. Family/friend ar5 present: no. Sitter present: Yes. 19:51 Inserted saline lock: 20 gauge in right antecubital area, using aseptic technique. cc3 Blood collected. inserted by cvt tech Marck. 20:00 Safety checks: Items removed: yes. Door open/sign placed on door: yes. Family/friend ar5 present: no. Sitter present: Yes. 20:15 Safety checks: Items removed: yes. Door open/sign placed on door: yes. Family/friend ar5 present: no. Sitter present: Yes. 20:30 Safety checks: Items removed: yes. Door open/sign placed on door: yes. Family/friend ar5 present: no. Sitter present: Yes. 20:35 Removal of peripheral IV. Catheter intact, dressing applied. ar5 20:45 Safety checks: Items removed: yes. Door open/sign placed on door: yes. Family/friend ar5 present: no. Sitter present: Yes. 21:34 Primary Nurse role handed off by David Street LVN ed1 22:01 Sissy Montez is Primary Nurse. cc3 23:10 No provider procedures requiring assistance completed. Patient did not have IV access cc3 during this emergency room visit. Administered Medications: 18:52 Drug: Geodon 20 mg Route: IM; Site: right deltoid; em 19:30 Follow up: Response: No adverse reaction cc3 Outcome: 22:10 ER care complete, transfer ordered by . snw 23:10 Transferred by ground EMS to [facility], Transfer form completed. cc3 23:10 Condition: stable 23:10 Instructed on the need for transfer, Demonstrated understanding of instructions. 23:14 Patient left the ED. cc3 Signatures: Marce Valerio, STATISTICAL PROGRAMMER ANALYST-C STATISTICAL PROGRAMMER ANALYST-Csnw David Street LVN NUCLEAR PLANT INSTRUMENT TECHNICIAN em Barbie Jean-Baptiste ms, Erika RN RN ed1 Fozia Howell RN RN Sissy Montez cc3 Marck Barr ag4 Cristel Lira ar5 Corrections: (The following items were deleted from the chart) 19:13 18:18 PMHx: AIDS; em em 22:36 20:18 Reassessment: Patient appears in no apparent distress at this time. Patient cc3 and/or family updated on plan of care and expected duration. Pain level reassessed. Patient is alert, oriented x 3, equal unlabored respirations, skin warm/dry/pink. cc3 22:40 22:30 Reassessment: Patient appears in no apparent distress at this time. Patient cc3 and/or family updated on plan of care and expected duration. Pain level reassessed. Patient is alert, oriented x 3, equal unlabored respirations, skin warm/dry/pink. Patient for transfer to [facility] as a case of Schizophrenia, psychotic disorder with delusions. Called for report and handed over to RALF Dejesus. Transfer form completed and signed by the patient himself. cc3 23:20 23:05 Reassessment: Patient appears in no apparent distress at this time. Patient cc3 and/or family updated on plan of care and expected duration. Pain level reassessed. Patient is alert, oriented x 3, equal unlabored respirations, skin warm/dry/pink. [facility] came for patient transport. cc3
[2018-08-07 23:50] VITALS: O2SAT 98
[2018-08-07 23:51] VITALS: BP 106/55; TEMP 97.8
--- NOTE | 2018-08-08 06:47 | EKG ---
Test Date: 2018-08-07 Test Time: 19:34:42 Case Checker: AG3 MEASUREMENT RESULTS: Intervals: Rate: 81 PA: 150 QRSD: 86 QT: 358 QTc: 415 [place]: P: 50 PA: 150 QRS: 56 T: 25 INTERPRETIVE STATEMENTS: Normal sinus rhythm Normal ECG Compared to ECG 06/25/2013 13:47:45 No significant changes Electronically Signed On 08-08-18 06:46:52 CDT by Martin Mcelroy
== END 2018-08-07 23:14 ==
LOC: ER 18:08
DX: F20.9 Schizophrenia, unspecified (principal); F06.8 Other specified mental disorders due to known physiological condition; F41.9 Anxiety disorder, unspecified; Z88.0 Allergy status to penicillin
CPT/HCPCS: 93005; 85025; 80048; 36415; 80320; 80329 ×2; 85610; 80076; 80307 ×8; 85730; 81003; 96372; 99285; J3486

== ENCOUNTER 2018-12-05 09:47 | Emergency (ER) | payer OTHER ==
--- OUTSIDE RECORDS SUMMARY | 2018-12-05 09:51 | XMS REPORT | Clinical Summary ---
:1975 Author Organization [facility] Address [address] [place] [address] Care Team Providers Name Role Phone Asked, No Pcp Primary Care Provider Unavailable Allergies No Known Allergies Medications Medication Sig Dispensed Refills Start Date End Date Status divalproex (DEPAKOTE) Take 5 tablets 70 tablet 0 08/18/2018 09/01/2018 500 MG 24 hr (2,500 mg tabletIndications: total) by Psychosis augmentation mouth nightly for 14 days. benztropine (COGENTIN) Take 1 tablet 28 tablet 0 08/18/2018 09/01/2018 0.5 MG (0.5 mg total) tabletIndications: by mouth 2 drug-induced (two) times a extrapyramidal reaction day for 14 days. haloperidol (HALDOL) 10 Take 1 tablet 28 tablet 0 08/18/2018 09/01/2018 MG tabletIndications: (10 mg total) Schizoaffective by mouth 2 disorder (two) times a day for 14 days. nicotine (NICODERM CQ) Place 1 patch 30 patch 0 08/18/2018 09/17/2018 21 mg/24 hrIndications: on the skin Smoking Cessation daily for 30 days. Active Problems Problem Noted Date Morbid obesity 08/18/2018 Schizoaffective disorder, bipolar type 08/08/2018 Encounters Date Type Specialty Care Team Description 08/08/2018 - Hospital Encounter Psychiatry Libby Anglin MD 08/18/2018 08/07/2018 Intake Access N/A after 12/04/2017 Social History Tobacco Use Types Packs/Day Years Used Date Never Assessed Sex Assigned at Date Recorded Not on file Job Start Date Occupation Industry Not on file Not on file Not on file Travel History Travel Start Travel End No recent travel history available. Last Filed Vital Signs Vital Sign Reading Time Taken Comments Blood Pressure 119/67 08/18/2018 6:35 AM CDT Pulse 68 08/18/2018 6:35 AM CDT Temperature 36.1 C (97 F) 08/18/2018 6:35 AM CDT Respiratory Rate 19 08/18/2018 6:35 AM CDT Oxygen Saturation 94% 08/18/2018 6:35 AM CDT Inhaled Oxygen Concentration - - Weight 171 kg (376 lb 8 oz) 08/12/2018 6:48 AM CDT Height 190.5 cm (6' 3") 08/08/2018 2:40 AM CDT Body Mass Index 47.06 08/08/2018 2:40 AM CDT Plan of Treatment Not on file Procedures Procedure Name Priority Date/Time Associated Comments Diagnosis VALPROIC ACID LEVEL Routine 08/17/2018 5:40 Results for this AM CDT procedure are in the results section. ESTIMATED GFR Routine 08/14/2018 6:30 Results for this AM CDT procedure are in the results section. THYROID STIMULATING Routine 08/14/2018 6:30 Results for this HORMONE AM CDT procedure are in the results section. VALPROIC ACID LEVEL Routine 08/14/2018 6:30 Results for this AM CDT procedure are in the results section. COMPREHENSIVE Routine 08/14/2018 6:30 Results for this METABOLIC PANEL AM CDT procedure are in the results section. HC COMPLETE BLD COUNT Routine 08/14/2018 6:30 Results for this W/AUTO DIFF AM CDT procedure are in the results section. HCG QUALITATIVE, SERUM Routine 08/08/2018 5:10 Results for this SCREEN PM CDT procedure are in the results section. SYPHILIS TREPONEMAL Routine 08/08/2018 5:10 Results for this IGG PM CDT procedure are in the results section. HIV AG/AB COMBINATION Routine 08/08/2018 5:10 Results for this PM CDT procedure are in the results section. LIPID PANEL Routine 08/08/2018 5:10 Results for this PM CDT procedure are in the results section. HEMOGLOBIN A1C Routine 08/08/2018 5:10 Results for this PM CDT procedure are in the results section. after 12/04/2017 Results Valproic acid level (08/17/2018 5:40 AM CDT)Only the most recent of2 resultswithin the time period is included. Valproic acid 85.1 50.0 - 100.0 [facility] Comment: ug/mL HOSPITAL Therapeutic Range: 50 - 100 ug/mL Specimen Plasma specimen Performing Organization Address City/[facility]/Zipcode Phone Number [facility] DEPARTMENT OF PATHOLOGY AND [address] [place] [phone] [place] [phone] Estimated GFR (08/14/2018 6:30 AM CDT) Pathologist [facility] Estimated GFR >=90 mL/min/1.73 [facility] Comment: HOSPITAL CatergoryUnitsInterpretation G1 >=90 Normal or high G2 60-89Mildly decreased [id number] to moderately decreased [id number] to severely decreased G4 15-29Severely decreased G5 <15Kidney failure The eGFR was calculated using the Chronic Kidney Disease Epidemiology Collaboration (CKD-EPI) equation. Interpretation is based on recommendations of the National Kidney Foundation-Kidney Disease Outcomes Quality Initiative (NKF-KDOQI) published in 2014. Specimen Plasma specimen Performing Organization Address City/[facility]/Zipcode Phone Number [facility] DEPARTMENT OF PATHOLOGY AND [address] [place] [phone] [place] [phone] CBC with platelet and differential (08/14/2018 6:30 AM CDT) [facility] WBC 8.34 4.50 - 11.00 [facility] k/uL [facility] RBC 4.45 4.40 - 6.00 [facility] HGB 13.4 (L) 14.0 - 18.0 [facility] g/dL [facility] HCT 40.3 (L) 41.0 - 51.0 % [facility] MCV 90.6 82.0 - 100.0 [facility] MCH 30.1 27.0 - 34.0 pg [facility] MCHC 33.3 31.0 - 37.0 [facility] RDW - SD 47.2 37.0 - 55.0 fL [facility] MPV 12.0 8.8 - 13.2 fL [facility] Platelet count 186 150 - 400 k/uL [facility] Nucleated RBC 0.00 /100 WBC [facility] Neutrophils 53.0 39.0 - 69.0 % [facility] Lymphocytes 36.2 25.0 - 45.0 % [facility] Monocytes 7.1 0.0 - 10.0 % [facility] Eosinophils 2.8 0.0 - 5.0 % [facility] Basophils 0.7 0.0 - 1.0 % [facility] Immature granulocytes 0.2Comment: 0.0 - 1.0 % [facility] "Immature HOSPITAL granulocytes" (promyelocytes , myelocytes, metamyelocytes ) Specimen Blood Performing Organization Address City/[facility] Phone Number [facility] DEPARTMENT OF PATHOLOGY AND [address] [place] [phone] Thyroid stimulating hormone (08/14/2018 6:30 AM CDT) TSH 1.99 0.27 - 4.20 uIU/mL [facility] Specimen Plasma specimen Performing Organization Address City/[facility] Phone Number [facility] DEPARTMENT OF PATHOLOGY AND [address] [place] [phone] [place] [phone] Comprehensive metabolic panel (08/14/2018 6:30 AM CDT) Sodium 139 135 - 148 [facility] mEq/L [facility] Potassium 4.3 3.5 - 5.0 [facility] mEq/L [facility] Chloride 99 98 - 112 mEq/L [facility] CO2 27 24 - 31 mEq/L [facility] Anion gap 13@ANIO 7 - 15 mEq/L [facility] BUN 14 6 - 20 mg/dL [facility] Creatinine 0.86 0.70 - 1.20 [facility] mg/dL HOSPITAL Glucose 92 65 - 99 mg/dL [facility] Calcium 8.8 8.3 - 10.2 [facility] mg/dL HOSPITAL Protein 6.9 6.3 - 8.3 g/dL [facility] Comment: HOSPITAL [place] 4.6-7.0 g/dL 1 week 4.4-7.6 g/dL 7 months-1year5.1-7.3 g/dL 1-2 years5.6-7.5 g/dL >3 years6.0-8.0 g/dL 18-150 6.3-8.3 g/dL Albumin 3.1 (L) 3.5 - 5.0 g/dL [facility] A/G ratio 0.8 0.7 - 3.8 [facility] Alkaline phosphatase 60 40 - 129 U/L [facility] AST 13 10 - 50 U/L [facility] ALT 14 5 - 50 U/L [facility] Total bilirubin 0.4 0.0 - 1.2 [facility] mg/dL HOSPITAL Specimen Plasma specimen Performing Organization Address City/[facility] Mex[facility]ode Phone Number [facility] DEPARTMENT OF PATHOLOGY AND [address] [place] [address] Syphilis treponemal IgG (08/08/2018 5:10 PM CDT) Syphilis Non-reactiveComment Non-reactive [facility] treponemal IgG : Non-reactive: No HOSPITAL serological evidence of Syphilis infection Specimen Serum Performing Organization Address [facility] Phone Number [facility] DEPARTMENT OF PATHOLOGY AND [address] [place] [address] HIV Ag/Ab combination (08/08/2018 5:10 PM CDT) Pathologist [facility] HIV Ag/Ab combination Non-reactive Non-reactive [facility] Specimen Blood Performing Organization Address [facility] Phone Number [facility] DEPARTMENT OF PATHOLOGY AND [address] [place] [phone] hCG qualitative, serum screen (08/08/2018 5:10 PM CDT) Pathologist [facility] hCG qualitative, NegativeComment: [facility] serum Sensitivity of HCG HOSPITAL test: 25 mIU/mL Specimen Blood Performing Organization Address City/[facility] Phone Number [facility] DEPARTMENT OF PATHOLOGY AND [address] [place] [phone] Hemoglobin A1c (08/08/2018 5:10 PM CDT) Pathologist [facility] Hemoglobin A1C 6.1 (H) 4.0 - 5.6 % [facility] Comment: HOSPITAL HbA1c cutoffs for diagnosing diabetes: 4.0% - 5.6%=normal 5.7% - 6.4%=increased risk for diabetes (prediabetes) >=6.5%=diabetes Goals for glycemic control (ADA 2016) < 7.0%Target for non adults with diabetes. More or less stringent targets may be appropriate for individual patients. <7.5% Target for Children and adolescents with type 1 diabetes. Specimen Blood Performing Organization Address City/State/Zipcode Phone Number [facility] DEPARTMENT OF PATHOLOGY AND [address] [place] [phone] [address] Lipid panel (08/08/2018 5:10 PM CDT) Cholesterol 169 <200 mg/dL [facility] Triglycerides 92 <150 mg/dL [facility] HDL cholesterol 46 >40 mg/dL [facility] LDL cholesterol 110 (H)Comment: <100 mg/dL [facility] Result obtained by [facility] measurement Lipid panel [facility] interpretation Comment: GNOSTICIST Total Cholesterol (mg/dL) [facility] <200 Desirable 044-451Dgojiusane-sobs >=240High Triglycerides (mg/dL) <150 Normal [phone]-yeia 200-499High >=500Very high HDL Cholesterol (mg/dL) <40Low (male) <40Low (female) LDL Cholesterol (mg/dL) <100 Optimal 100-129Near or above optimal [phone]-xbmx 160-189High >=190Very high Risk Catergories that modify LDL goals. Risk CatergoriesLDL goal (mg/dL) CHD and CHD risk equivalent<100 (10-year risk >20%) Multiple (2+) risk factors <130 (10-year risk=<20%) 0-1 risk factors <160 (<10-year risk) Defining levels of lipids in metabolic syndrome Triglycerides>=150 mg/dL HDL Cholesterol Men<40 mg/dL Women<40 mg/dL Non-HDL cholesterol is a second target for therapy in persons with high triglycerides (>=200 mg/dL) Specimen Plasma specimen Performing Organization Address City/State/Zipcode Phone Number [facility] DEPARTMENT OF PATHOLOGY AND [address] [place] [address] [address] after 12/04/2017 Insurance Payer Benefit Plan / Subscriber ID Effective Dates Phone Address Type Group MEDICARE MEDICARE PART A xxxxxxxxxxx 1998-Present [place], [place] Medicare [place] B Advance Directives For more information, please contact: [phone] Type Date Recorded Patient Behavioral Health Counselor Explanation Advance Directives, Living Will and Medical Power of Defence [employer] Senior Officer
[2018-12-05] MEDS ORDERED: NA CHLORIDE 0.9% 1,000 ML ONE (11:09)
[2018-12-05 11:17] LABS: Absolute Lymphocytes (CBC) 1.8 K/uL (0.7-4.9); Basophils % 0.6 % (0-1.3); Lymphocytes % 19.4 % (15.3-44.8); MPV 9.8 fL (7.6-11.3); RBC Red Blood Cell Count 4.64 M/uL (4.33-5.43)
[2018-12-05 11:27] LABS: Urine Blood 1+ (NEG); Urine Glucose NEGATIVE (NEG); Urine Protein NEGATIVE (NEG); Urine Specific Gravity 1.015 (1.005-1.030)
[2018-12-05 11:31] LABS: Protime INR 0.98
[2018-12-05 11:35] LABS: Barbiturates NEGATIVE (NEGATIVE); Benzodiazepines NEGATIVE (NEGATIVE); Cocaine NEGATIVE (NEGATIVE); METHAMPHETAM NEGATIVE (NEGATIVE); Methadone NEGATIVE (NEGATIVE); Opiates NEGATIVE (NEGATIVE); Phencyclidine NEGATIVE (NEGATIVE); THC Cannibis NEGATIVE (NEGATIVE)
[2018-12-05 11:38] LABS: ALT/SGPT 19 U/L (12-78); AST/SGOT 11 U/L (15-37); Albumin 3.5 g/dL (3.4-5.0); Alkaline Phosphatase 72 U/L (45-117); BUN Blood Urea Nitrogen 12 mg/dL (7-18); Bicarbonate 25 mmol/L (21-32); Bilirubin Direct 0.2 mg/dL (0-0.2); Bilirubin Total 0.5 mg/dL (0.2-1.0); Glucose Level 109 mg/dL (74-106); Potassium 3.4 mmol/L (3.5-5.1); Protein, Total 7.5 g/dL (6.4-8.2); Sodium Level 143 mmol/L (136-145)
[2018-12-05] MEDS ORDERED: POTASSIUM 25 MEQ EFFERV TAB ONE (12:53)
[2018-12-05] MEDS ORDERED: WATER FOR INJ,STERILE 10 ML ONE (12:54)
[2018-12-05] MEDS ORDERED: ZIPRASIDONE MESYLA 20 MG/VIAL IM ONE (12:54)
--- NOTE | 2018-12-05 13:18 | EDPHYS ---
Physician Documentation [facility] Name: Gil Shahid Age: 43 yrs Sex: Male : 1975 Arrival Date: 12/05/2018 Time: 09:53 Bed 13 Private MD: ED Physician Severo Ortega HPI: 12/05 10:36 This 43 yrs old Male presents to ER via EMS with complaints of Drug Abuse. guerline 10:36 The patient presents to the emergency department with paranoia, psychosis. Onset: The guerline symptoms/episode began/occurred 2 day(s) ago. Past psychiatric history: Prior diagnosis: schizophrenia, Psychiatric medications include: none. Associated signs and symptoms: Pertinent positives; paranoia. The patient has experienced similar episodes in the past, several times. Historical: - Allergies: 10:01 PENICILLINS; hj - Home Meds: 10:01 Latuda Oral [Active]; hj - PMHx: 10:01 Depression; Schizophrenia; hj - PSHx: 10:01 Unable to obtain; hj - Immunization history:: Adult Immunizations not up to date. - Social history:: Smoking status: Patient uses tobacco products, Patient uses street drugs, cocaine. - Ebola Screening: : Patient negative for fever greater than or equal to 101.5 degrees Fahrenheit, and additional compatible Ebola Virus Disease symptoms Patient denies exposure to infectious person Patient denies travel to an Ebola-affected area in the 21 days before illness onset. - Family history:: not pertinent. ROS: 10:36 Constitutional: Negative for fever, chills, and weight loss, Eyes: Negative for injury, guerline pain, redness, and discharge, ENT: Negative for injury, pain, and discharge, Neck: Negative for injury, pain, and swelling, Cardiovascular: Negative for chest pain, palpitations, and edema, Respiratory: Negative for shortness of breath, cough, wheezing, and pleuritic chest pain, Abdomen/GI: Negative for abdominal pain, nausea, vomiting, diarrhea, and constipation, Back: Negative for injury and pain, : Negative for injury, bleeding, discharge, and swelling, MS/Extremity: Negative for injury and deformity, Skin: Negative for injury, rash, and discoloration, Neuro: Negative for headache, weakness, numbness, tingling, and seizure, Allergy/Immunology: Negative for hives, rash, and allergies, Endocrine: Negative for neck swelling, polydipsia, polyuria, polyphagia, and marked weight changes, Hematologic/Lymphatic: Negative for swollen nodes, abnormal bleeding, and unusual bruising. 10:36 Psych: Positive for anxiety. Exam: 10:36 Constitutional: This is a well developed, well nourished patient who is awake, alert, guerline and in no acute distress. Head/Face: Normocephalic, atraumatic. Eyes: Pupils equal round and reactive to light, extra-ocular motions intact. Lids and lashes normal. Conjunctiva and sclera are non-icteric and not injected. Cornea within normal limits. Periorbital areas with no swelling, redness, or edema. ENT: Nares patent. No nasal discharge, no septal abnormalities noted. Tympanic membranes are normal and external auditory canals are clear. Oropharynx with no redness, swelling, or masses, exudates, or evidence of obstruction, uvula midline. Mucous membranes moist. Neck: Trachea midline, no thyromegaly or masses palpated, and no cervical lymphadenopathy. Supple, full range of motion without nuchal rigidity, or vertebral point tenderness. No Meningismus. Chest/axilla: Normal chest wall appearance and motion. Nontender with no deformity. No lesions are appreciated. Respiratory: Lungs have equal breath sounds bilaterally, clear to auscultation and percussion. No rales, rhonchi or wheezes noted. No increased work of breathing, no retractions or nasal flaring. Abdomen/GI: Soft, non-tender, with normal bowel sounds. No distension or tympany. No guarding or rebound. No evidence of tenderness throughout. Back: No spinal tenderness. No costovertebral tenderness. Full range of motion. Male : Normal genitalia with no discharge or lesions. Skin: Warm, dry with normal turgor. Normal color with no rashes, no lesions, and no evidence of cellulitis. MS/ Extremity: Pulses equal, no cyanosis. Neurovascular intact. Full, normal range of motion. Neuro: Awake and alert, GCS 15, oriented to person, place, time, and situation. Cranial nerves II-XII grossly intact. Motor strength 5/5 in all extremities. Sensory grossly intact. Cerebellar exam normal. Normal gait. 10:36 Cardiovascular: Rate: tachycardic, Rhythm: regular, Pulses: Pulses are 4+ in bilateral radial, brachial, femoral, popliteal, posterior tibial and and dorsalis pedis arteries.. Heart sounds: normal, Edema: is not appreciated, JVD: is not appreciated. Vital Signs: 09:58 BP 126 / 80; Pulse 115; Resp 18; Temp 98.1(TE); Pulse Ox 96% on R/A; Weight 148.32 kg; hj Height 6 ft. 3 in. (190.50 cm); Pain 0/10; 11:27 BP 128 / 78; Pulse 105; Resp 18; Pulse Ox 98% on R/A; hj 13:00 BP 128 / 88; Pulse 98; Resp 16 S; Pulse Ox 98% on R/A; ca1 16:20 BP 131 / 69; Pulse 70; Resp 15 S; Pulse Ox 95% on R/A; ca1 17:30 BP 124 / 66; Pulse 72; Resp 16 S; Pulse Ox 98% on R/A; ca1 18:30 BP 127 / 72; Pulse 76; Resp 16; Temp 98(TE); Pulse Ox 96% on R/A; ca1 09:58 Body Mass Index 40.87 (148.32 kg, 190.50 cm) MDM: 10:03 Patient medically screened. [facility] 10:44 Data reviewed: vital signs, nurses notes, lab test result(s), EKG. 12/05 10:07 Order name: Acetaminophen; Complete Time: 12:34 [facility] 12/05 10:07 Order name: Basic Metabolic Panel; Complete Time: 12:34 [facility] 12/05 10:07 Order name: CBC with Diff; Complete Time: 12:34 [facility] 12/05 10:07 Order name: ETOH Level; Complete Time: 12:34 [facility] 12/05 10:07 Order name: Hepatic Function; Complete Time: 12:34 [facility] 12/05 10:07 Order name: PT-INR; Complete Time: 12:34 [facility] 12/05 10:07 Order name: Ptt, Activated; Complete Time: 12:34 [facility] 12/05 10:07 Order name: Salicylate; Complete Time: 12:34 [facility] 12/05 10:07 Order name: Urine Drug Screen; Complete Time: 12:34 [facility] 12/05 10:44 Order name: Chest Single View XRAY; Complete Time: 13:54 [facility] 12/05 10:44 Order name: Troponin (emerg Dept Use Only); Complete Time: 12:34 [facility] 12/05 11:18 Order name: Urine Dipstick--Ancillary (enter results); Complete Time: 12:34 eb 12/05 10:07 Order name: EKG; Complete Time: 10:08 [facility] 12/05 10:07 Order name: EKG - Nurse/Tech; Complete Time: 10:44 [facility] 12/05 10:07 Order name: IV Saline Lock; Complete Time: 11:06 [facility] 12/05 10:07 Order name: Labs collected and sent; Complete Time: 11:07 [facility] 12/05 10:07 Order name: Urine Dipstick-Ancillary (obtain specimen); Complete Time: 11:14 [facility] 12/05 16:18 Order name: Diet Regular; Complete Time: 16:19 eb Administered Medications: 11:13 Drug: NS 0.9% 1000 ml Route: IV; Rate: 1 bolus; Site: right forearm; hj 13:00 Follow up: Response: No adverse reaction; IV Status: Completed infusion ca1 12:55 Drug: Potassium Effervescent Tablet 50 mEq Route: PO; ca1 14:00 Follow up: Response: No adverse reaction ca1 12:56 Drug: Geodon 20 mg Route: IM; Site: right deltoid; ca1 15:30 Follow up: Response: No adverse reaction; Other; Pt appears calm. ca1 Disposition: 12/05/18 13:15 Transfer ordered to Psych Facility. Diagnosis are Schizophrenia, Unspecified psychosis not due to a substance or known physiological condition. - Reason for transfer: Higher level of care. - Accepting physician is to psych. - Condition is Fair. - Problem is new. - Symptoms have improved. Signatures: Dispatcher [employer] EDSevero Thompson MD MD cha Joaquin, Henry RN RN Barbara Pearson RN RN ca1 Corrections: (The following items were deleted from the chart) 18:55 13:15 12/05/2018 13:15 Transfer ordered to Psych Facility. Diagnosis is Schizophrenia; ca1 Unspecified psychosis not due to a substance or known physiological condition. Reason for transfer: Higher level of care. Accepting physician is to psych. Condition is Fair. Problem is new. Symptoms have improved. guerline
--- NOTE | 2018-12-05 13:18 | ER ---
Nurse's Notes [facility] Name: Gil Shahid Age: 43 yrs Sex: Male : 1975 Arrival Date: 12/05/2018 Time: 09:53 Bed 13 Private MD: Diagnosis: Schizophrenia;Unspecified psychosis not due to a substance or known physiological condition Presentation: 12/05 09:55 Presenting complaint: EMS states: was picked up at [facility] in [place] per pt hj request, states "i had 3 oz of cocaine on my Pepsi last night, im hearing my dad telling me im fucked up, and seeing the governor of [place] sometimes telling me that im fucked up and need to straighten up" reports auditory and visual hallucinations, negative for SI; reports delusions of grandiose "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 Transition of care: patient was not received from another setting of care. Onset of symptoms was December 05, 2018. Risk Assessment: Do you want to hurt yourself or someone else? Patient reports no desire to harm self or others. Initial Sepsis Screen: Does the patient meet any 2 criteria? No. Patient's initial sepsis screen is negative. Does the patient have a suspected source of infection? No. Patient's initial sepsis screen is negative. Care prior to arrival: None. 09:55 Method Of Arrival: EMS: [place] [place] [facility] 09:55 Acuity: MEGA 2 hj Triage Assessment: 10:01 General: Appears in no apparent distress. uncomfortable, Behavior is cooperative, hj appropriate for age, anxious, restless. Pain: Denies pain. Historical: - Allergies: 10:01 PENICILLINS; hj - Home Meds: 10:01 Latuda Oral [Active]; hj - PMHx: 10:01 Depression; Schizophrenia; hj - PSHx: 10:01 Unable to obtain; hj - Immunization history:: Adult Immunizations not up to date. - Social history:: Smoking status: Patient uses tobacco products, Patient uses street drugs, cocaine. - Ebola Screening: : Patient negative for fever greater than or equal to 101.5 degrees Fahrenheit, and additional compatible Ebola Virus Disease symptoms Patient denies exposure to infectious person Patient denies travel to an Ebola-affected area in the 21 days before illness onset. - Family history:: not pertinent. Screenin:01 Abuse screen: Denies threats or abuse. Denies injuries from another. Nutritional hj screening: No deficits noted. Tuberculosis screening: No symptoms or risk factors identified. Fall Risk None identified. Assessment: 10:02 General: Appears comfortable, obese, unkempt, Behavior is appropriate for age, anxious, hj restless, uncooperative. Pain: Denies pain. Neuro: Level of Consciousness is awake, alert, obeys commands, Oriented to person, place, time, situation, Appropriate for age. Cardiovascular: Capillary refill < 3 seconds Patient's skin is warm and dry. Respiratory: Airway is patent Respiratory effort is even, unlabored, Respiratory pattern is regular, symmetrical. GI: No signs and/or symptoms were reported involving the gastrointestinal system. : No signs and/or symptoms were reported regarding the genitourinary system. EENT: No signs and/or symptoms were reported regarding the EENT system. Derm: No signs and/or symptoms reported regarding the dermatologic system. Musculoskeletal: No signs and/or symptoms reported regarding the musculoskeletal system. 10:05 Reassessment: pt states "can you call my mom Isaias Shahid [phone] can tell her hj that the pepsi on the house has poison, i knew it". 10:15 Reassessment: security in room; pt refused EKG; states "i dont want this thing (EKG and hj i dont want heart surgery on me and i dont want you to do it to me, let me talk to the doctor" sec informed about pt request, to have MD go to the room;. 10:20 Reassessment: provider in room, with RN, pt agreed for EKG and blood work;. hj 10:40 Reassessment: EKG done, pt insist RN should use butterfly instead of IV; pt left room hj to smoke cigarette, pt becomes agitated, security called;. 10:41 Reassessment: Pt noted to be walking outside ER to ambulance bay. Spoke to patient, pt aa5 states "I just need a break because I am scared of the nurses and they are going to try to murder me", verbally reassured patient and patient states "I will come back inside in like 30 minutes". Security now with patient. . 11:00 Reassessment: Pt agrees to come back to ER Room 13 and agrees to IV placement and blood aa5 draw. Pt calm and cooperative at this time. Pt placed in bed, sitting up in bed, side rails x 2, call conte within reach. . 12:10 Reassessment: Patient appears in no apparent distress at this time. Patient and/or ca1 family updated on plan of care and expected duration. Pain level reassessed. Equal and unlabored breathing. Skin pink, warm and dry. 13:16 Reassessment: Patient appears in no apparent distress at this time. No changes from ca1 previously documented assessment. Report given to Villanueva RN. 14:30 Reassessment: Patient appears in no apparent distress at this time. Pacing, keeps ca1 asking on to call his mom. Tried calling his mom, went straight to voice mail. Equal and unlabored breathing. Skin pink, warm and dry. 15:28 Reassessment: Patient appears in no apparent distress at this time. Equal and unlabored ca1 breathing. Skin pink, warm and dry. Laying on bed, eyes closed. Kept undisturbed. 16:30 Reassessment: Patient appears in no apparent distress at this time. Equal and unlabored ca1 breathing. Skin pink, warm and dry. Laying on bed, eyes closed. Kept undisturbed. 17:30 Reassessment: No changes from previously documented assessment. Equal and unlabored ca1 breathing. Skin pink, warm and dry. Laying on bed, eyes closed. Kept undisturbed. 18:14 Reassessment: Patient appears in no apparent distress at this time. Report called to ca1 RALF Eisenberg of [facility]. Pt woke up, pacing and asking to smoke outside. Notified CN. Vital Signs: 09:58 BP 126 / 80; Pulse 115; Resp 18; Temp 98.1(TE); Pulse Ox 96% on R/A; Weight 148.32 kg; hj Height 6 ft. 3 in. (190.50 cm); Pain 0/10; 11:27 BP 128 / 78; Pulse 105; Resp 18; Pulse Ox 98% on R/A; hj 13:00 BP 128 / 88; Pulse 98; Resp 16 S; Pulse Ox 98% on R/A; ca1 16:20 BP 131 / 69; Pulse 70; Resp 15 S; Pulse Ox 95% on R/A; ca1 17:30 BP 124 / 66; Pulse 72; Resp 16 S; Pulse Ox 98% on R/A; ca1 18:30 BP 127 / 72; Pulse 76; Resp 16; Temp 98(TE); Pulse Ox 96% on R/A; ca1 09:58 Body Mass Index 40.87 (148.32 kg, 190.50 cm) ED Course: 09:53 Patient arrived in ED. hj 09:58 Triage completed. hj 10:02 Arm band placed on. hj 10:02 Patient has correct armband on for positive identification. Bed in low position. Call light in reach. Side rails up X2. 10:03 Severo Ortega MD is Attending Physician. [facility] 10:04 Alexey Auguste RN is Primary Nurse. hj 11:05 Initial lab(s) drawn, by nh, sent to lab. Inserted saline lock: 22 gauge in right aa5 forearm, using aseptic technique. Blood collected. 11:14 Chest Single View XRAY In Process Unspecified. EDMS 11:19 Urine collected: clean catch specimen, clear. dh3 12:50 Barbara Pearson, RN is Primary Nurse. ca1 12:51 faxed patient clinical's to the following facilities in the attempt to transfer; [facility], [facility], [facility], [facility], [facility], [facility], [facility] and [facility]. 13:08 connected the Nurse from [facility] with Barbara ARAMBULA for nurse to nurse report. eb 15:35 [facility] declined transfer due to not having any beds available at this time. eb 16:25 No provider procedures requiring assistance completed. ca1 18:54 IV discontinued, intact, bleeding controlled, No redness/swelling at site. Pressure ca1 dressing applied. Administered Medications: 11:13 Drug: NS 0.9% 1000 ml Route: IV; Rate: 1 bolus; Site: right forearm; hj 13:00 Follow up: Response: No adverse reaction; IV Status: Completed infusion ca1 12:55 Drug: Potassium Effervescent Tablet 50 mEq Route: PO; ca1 14:00 Follow up: Response: No adverse reaction ca1 12:56 Drug: Geodon 20 mg Route: IM; Site: right deltoid; ca1 15:30 Follow up: Response: No adverse reaction; Other; Pt appears calm. ca1 Outcome: 13:15 ER care complete, transfer ordered by . guerline 18:54 Transferred by ground EMS to other acute care facility: [facility]. Transfer form ca1 completed. 18:55 Condition: stable ca1 18:55 Instructed on the need for transfer. 18:55 Patient left the ED. ca1 Signatures: Dispatcher [employer] EDMS Severo Ortega MD MD cha Calderon, Audri, RN RN aa5 Alexey Auguste RN RN Helen Fernández 3 Michaela Arias Cheryl, RN RN ca1 Corrections: (The following items were deleted from the chart) 10:28 10:02 General: Appears in no apparent distress. uncomfortable, Behavior is cooperative, hj appropriate for age, anxious, hj 11:45 09:55 Presenting complaint: EMS states: was picked up at [facility] in [place] per pt hj request, states "i had 3 oz of cocaine on my Pepsi last night, im hearing my dad telling me im fucked up, and seeing the governor [facility] sometimes telling me that im fucked up and need to straighten up" reports auditory and visual hallucinations, negative for SI; BP- 170/70; HR- 118; O2 sat RA- 93%; hj 11:46 09:55 Presenting complaint: EMS states: was picked up at [facility] in [place] per pt hj request, states "i had 3 oz of cocaine on my Pepsi last night, im hearing my dad telling me im fucked up, and seeing the governor [facility] sometimes telling me that im fucked up and need to straighten up" reports auditory and visual hallucinations, negative for SI; BP- 170/70; HR- 118; O2 sat RA- 93%; hx of schizophrenia not compliant with meds; hj 18:19 15:28 Reassessment: Patient appears in no apparent distress at this time. Equal and ca1 unlabored breathing. Skin pink, warm and dry. Laying on bed, eyes closed. Kept undisturbed ca1 18:20 18:14 Reassessment: Report called to RALF Eisenberg of [place]'s ca1 ca1
--- NOTE | 2018-12-05 13:22 | RAD REPORT ---
EXAM DESCRIPTION: Alison Single View12/05/2018 11:13 am CLINICAL HISTORY: Chest pain COMPARISON: 2011 FINDINGS: The lungs appear clear of acute infiltrate. The heart is normal size IMPRESSION: No acute abnormalities displayed
[2018-12-05 19:03] VITALS: TEMP 98.1
[2018-12-05 19:08] VITALS: BP 124/66; O2SAT 98
--- NOTE | 2018-12-07 08:39 | EKG ---
Test Date: 2018-12-05 Test Time: 10:34:47 Watch Train Inspector: VIJAYA MEASUREMENT RESULTS: Intervals: Rate: 108 ME: 154 QRSD: 90 QT: 350 QTc: 469 [place]: P: 57 ME: 154 QRS: 34 T: 32 INTERPRETIVE STATEMENTS: Sinus tachycardia Possible Inferior infarct, age undetermined Possible Anterolateral infarct, age undetermined Abnormal ECG Compared to ECG 08/07/2018 19:34:42 Myocardial infarct finding now present Sinus rhythm no longer present Electronically Signed On 12-07-18 08:36:34 CDT by Brando Santiago
== END 2018-12-05 18:55 ==
LOC: ER 09:47
DX: F20.9 Schizophrenia, unspecified (principal); F29 Unspecified psychosis not due to a substance or known physiological condition; F14.90 Cocaine use, unspecified, uncomplicated; F19.90 Other psychoactive substance use, unspecified, uncomplicated; Z88.0 Allergy status to penicillin; Z72.0 Tobacco use
CPT/HCPCS: 96361; 93005; 85025; 80048; 36415; 80320; 80329 ×2; 85610; 80076; 80307 ×8; 85730; 81003; 84484; 71045; 96360; 96372; 99285; J3486; J7030

== ENCOUNTER 2019-01-01 21:09 | Emergency (ER) | payer OTHER ==
--- NOTE | 2019-01-01 21:53 | ER ---
Nurse's Notes [facility] Name: Gil Shahid Age: 43 yrs Sex: Male : 1975 Arrival Date: 01/01/2019 Time: 21:14 Bed 14 Private MD: Diagnosis: Presentation: 01/01 21:15 Presenting complaint: Patient states: Chest pain at night for the past 3 days. States aj1 that he is unable to sleep because of it, and he needs some medication to help him sleep. Patient's father reports that the patient stays up all night sitting on the porch smoking, he takes medication to help him sleep but it isn't helping him anymore. Reports that patient has been having this kind of chest pain after he smokes for the past 15 years. Transition of care: patient was not received from another setting of care. Onset of symptoms was 2018. Risk Assessment: Do you want to hurt yourself or someone else? Patient reports no desire to harm self or others. Initial Sepsis Screen: Does the patient meet any 2 criteria? HR > 90 bpm. No. Patient's initial sepsis screen is negative. Does the patient have a suspected source of infection? No. Patient's initial sepsis screen is negative. Care prior to arrival: None. 21:15 Method Of Arrival: Ambulatory aj 21:15 Acuity: MEGA 3 aj1 Triage Assessment: 21:20 General: Appears uncomfortable, Behavior is agitated, anxious. Pain: Denies pain. aj1 Neuro: Level of Consciousness is awake, alert, obeys commands. Cardiovascular: Patient's skin is warm and dry. Respiratory: Airway is patent Respiratory effort is even, unlabored, Respiratory pattern is regular, symmetrical. Historical: - Allergies: 21:20 PENICILLINS; aj1 21:20 horseradish; aj1 - Home Meds: 21:20 Latuda Oral [Active]; Haldol Oral [Active]; sleeping pill [Active]; 4 other psych meds aj1 [Active]; - PMHx: 21:20 Depression; Schizophrenia; aj1 - Immunization history:: Adult Immunizations up to date. - Social history:: Smoking status: Patient uses tobacco products, smokes 4 packs per day. - Ebola Screening: : Patient denies travel to an Ebola-affected area in the 21 days before illness onset. Screenin:45 Abuse screen: Denies threats or abuse. Nutritional screening: No deficits noted. jb4 Tuberculosis screening: No symptoms or risk factors identified. Fall Risk None identified. Assessment: 21:39 General: PT left ED to smoke. jb4 21:45 Reassessment: PT ambulated back into the ED and stated " I got to go my mom is hurting jb4 I have got to go home to my mom." and ambulated out of the ED. Vital Signs: 21:20 BP 155 / 81; Pulse 102; Resp 20; Temp 98.7; Pulse Ox 96% on R/A; Weight 167.83 kg (R); aj1 Height 6 ft. 3 in. (190.50 cm) (R); Pain 0/10; 21:20 Body Mass Index 46.25 (167.83 kg, 190.50 cm) [facility] ED Course: 21:14 Patient arrived in ED. cf2 21:16 Samuel Draper PA is PHCP. [facility] 21:16 Je Navarro MD is Attending Physician. [facility] 21:18 Triage completed. [facility] 21:20 Arm band placed on Patient placed in an exam room. [facility] 21:24 Samuel Draper PA is PHCP. [facility] 21:24 Je Navarro MD is Attending Physician. [facility] 21:39 Chris Thompson, RN is Primary Nurse. jb4 21:45 Patient has correct armband on for positive identification. jb4 21:45 No provider procedures requiring assistance completed. Patient did not have IV access jb during this emergency room visit. Patient maintains SpO2 saturation greater than 95% on room air. Administered Medications: No medications were administered Outcome: 21:45 Eloped from patient exam room, after seeing physician jb 21:45 Condition: stable 21:53 Patient left the ED. jb Signatures: Kari Newman, RN RN [facility] Samuel Draper PA PA [facility] Chris Thompson, RN RN jb4 Rajesh Nath cf2
--- NOTE | 2019-01-01 21:53 | EDPHYS ---
Physician Documentation [facility] Name: Gil Shahid Age: 43 yrs Sex: Male : 1975 Arrival Date: 01/01/2019 Time: 21:14 Bed 14 Private MD: ED Physician Je Navarro HPI: 01/01 21:38 This 43 yrs old Male presents to ER via Ambulatory with complaints of Chest jmm Pain. 21:38 The patient or guardian reports chest pain that is located primarily in the substernal [facility] area. Onset: gradually, 3 day(s) ago. The pain does not radiate. Associated signs and symptoms: Pertinent negatives: abdominal pain, cough, shortness of breath. The chest pain is described as aching, sharp. This is a 43 year old male with a history of schizophrenia that presents to the ED with complaints of 3 days of chest pain. Patient admits to tobacco use. . Historical: - Allergies: 21:20 PENICILLINS; aj1 21:20 horseradish; aj1 - Home Meds: 21:20 Latuda Oral [Active]; Haldol Oral [Active]; sleeping pill [Active]; 4 other psych meds aj1 [Active]; - PMHx: 21:20 Depression; Schizophrenia; aj1 - Immunization history:: Adult Immunizations up to date. - Social history:: Smoking status: Patient uses tobacco products, smokes 4 packs per day. - Ebola Screening: : Patient denies travel to an Ebola-affected area in the 21 days before illness onset. ROS: 21:38 Constitutional: Negative for fever, chills, and weight loss. jmm 21:38 Cardiovascular: Positive for chest pain. 21:38 Psych: Negative for homicidal ideation, suicidal ideation. 21:38 All other systems are negative. Exam: 21:38 Constitutional: This is a well developed, well nourished patient who is awake, alert, jmm and in no acute distress. Head/Face: atraumatic. Eyes: EOMI, no conjunctival erythema appreciated ENT: Moist Mucus Membranes Neck: Trachea midline, Supple Chest/axilla: Normal chest wall appearance and motion. 21:38 Back: Normal ROM Skin: General appearance color normal MS/ Extremity: Moves all extremities, no obvious deformities appreciated, no edema noted to the lower extremities Neuro: Awake and alert, normal gait 21:38 Cardiovascular: Rate: normal, Rhythm: regular. 21:38 Respiratory: the patient does not display signs of respiratory distress, Respirations: normal, Breath sounds: are clear throughout. 21:38 Psych: Patient has no thoughts/intents to harm self or others. Vital Signs: 21:20 BP 155 / 81; Pulse 102; Resp 20; Temp 98.7; Pulse Ox 96% on R/A; Weight 167.83 kg (R); aj1 Height 6 ft. 3 in. (190.50 cm) (R); Pain 0/10; 21:20 Body Mass Index 46.25 (167.83 kg, 190.50 cm) aj1 MDM: 21:36 Patient medically screened. [facility] 21:38 ED course: Patient was advised of the need for further evaluation along with labs, cxr, jmm and ekg. Patient eloped from the ED.. Administered Medications: No medications were administered Disposition: 01/01/19 21:53 Patient left the facility after being seen by provider. - Patient left due to (see nurse's notes). Addendum: 01/05/2019 14:48 Co-signature as Attending Physician, Je Navarro MD. g s Signatures: Dispatcher [employer] EDMS Kari Newman RN RN aj1 Samuel Draper PA PA jmm Bryson, James, RALF RN jb4 Je Navarro MD MD gs Corrections: (The following items were deleted from the chart) 01/01 21:48 21:37 Cardiac monitoring ordered. yogesh fani 21:49 21:37 EKG - Nurse/Tech ordered. maria isabel mohr 21:49 21:37 IV Saline Lock ordered. maria isabel mohr 21:49 21:37 Labs collected and sent ordered. maria isabel mohr 21:50 21:37 Oxygen Per Protocol ordered. maria isabel mohr 21:50 21:37 O2 Sat Monitoring ordered. maria isabel mohr
== END 2019-01-01 21:53 | disposition left against medical advice (07) ==
LOC: ER 21:09
DX: R07.9 Chest pain, unspecified (principal); F32.9 Major depressive disorder, single episode, unspecified; F20.9 Schizophrenia, unspecified; Z72.0 Tobacco use; Z88.0 Allergy status to penicillin; Z91.018 Allergy to other foods
CPT/HCPCS: 99283

== ENCOUNTER 2019-01-09 19:33 | Emergency (ER) | payer OTHER ==
[2019-01-09 20:33] LABS: Absolute Lymphocytes (CBC) 2.3 K/uL (0.7-4.9); Basophils % 0.8 % (0-1.3); Lymphocytes % 19.2 % (15.3-44.8); MPV 10.1 fL (7.6-11.3); Protime INR 0.98; RBC Red Blood Cell Count 4.83 M/uL (4.33-5.43)
[2019-01-09 20:52] LABS: ALT/SGPT 18 U/L (12-78); AST/SGOT 12 U/L (15-37); Albumin 3.5 g/dL (3.4-5.0); Alkaline Phosphatase 71 U/L (45-117); BUN Blood Urea Nitrogen 11 mg/dL (7-18); Bicarbonate 28 mmol/L (21-32); Bilirubin Direct < 0.1 mg/dL (0-0.2); Bilirubin Total 0.4 mg/dL (0.2-1.0); Glucose Level 125 mg/dL (74-106); Potassium 3.7 mmol/L (3.5-5.1); Protein, Total 7.3 g/dL (6.4-8.2); Sodium Level 139 mmol/L (136-145)
[2019-01-09 21:47] LABS: Barbiturates NEGATIVE (NEGATIVE); Benzodiazepines NEGATIVE (NEGATIVE); Cocaine NEGATIVE (NEGATIVE); METHAMPHETAM NEGATIVE (NEGATIVE); Methadone NEGATIVE (NEGATIVE); Opiates NEGATIVE (NEGATIVE); Phencyclidine NEGATIVE (NEGATIVE); THC Cannibis NEGATIVE (NEGATIVE)
[2019-01-09 21:57] LABS: Urine Blood 2+ (NEG); Urine Glucose NEGATIVE (NEG); Urine Protein NEGATIVE (NEG); Urine Specific Gravity 1.025 (1.005-1.030); Urine pH 5.5 (5.0-7.0)
--- NOTE | 2019-01-10 03:28 | ER ---
Nurse's Notes [facility] Name: Gil Shahid Age: 43 yrs Sex: Male : 1975 Arrival Date: 01/09/2019 Time: 19:39 Bed 15 Private MD: Diagnosis: Unspecified psychosis not due to a substance or known physiological condition;Bipolar disorder, current episode depressed, mild;Suicidal ideations Presentation: 01/09 19:40 Presenting complaint: Mental Health deputy was called to pt's home by [place] [employer] due to pt being paranoid and the family being unable to handle him. He attempted to get pt to [place] but no one had any beds so pt was brought here. Pt denies being suicidal or homicidal. Transition of care: patient was not received from another setting of care. Onset of symptoms was January 09, 2019. Risk Assessment: Do you want to hurt yourself or someone else? Patient reports no desire to harm self or others. Initial Sepsis Screen: Does the patient meet any 2 criteria? HR > 90 bpm. Yes Does the patient have a suspected source of infection? No. Patient's initial sepsis screen is negative. Care prior to arrival: None. 19:40 Method Of Arrival: Ambulatory 19:40 Acuity: MEGA 3 fc Historical: - Allergies: 19:48 horseradish; fc 19:48 PENICILLINS; fc - Home Meds: 19:48 trazodone 100 mg Oral tab 2 tabs nightly [Active]; Cogentin Oral 1 mg twice a day fc [Active]; quetiapine 300 mg oral tab 2 in am and 1 at night [Active]; lithium carbonate 300 mg Oral TbER 1 tab 2 times per day [Active]; risperidone 3 mg oral tab 1 tab 2 times per day [Active]; - PMHx: 19:48 Depression; Schizophrenia; fc - Immunization history:: Last tetanus immunization: unknown. - Social history:: Smoking status: unknown. - Ebola Screening: : Patient negative for fever greater than or equal to 101.5 degrees Fahrenheit, and additional compatible Ebola Virus Disease symptoms Patient denies exposure to infectious person Patient denies travel to an Ebola-affected area in the 21 days before illness onset. Screenin:49 Abuse screen: Denies threats or abuse. Nutritional screening: No deficits noted. fc Tuberculosis screening: No symptoms or risk factors identified. Fall Risk None identified. Assessment: 19:45 General: Appears in no apparent distress. comfortable, Behavior is calm, cooperative. jb4 Pain: Complains of pain in sacrum, right leg and left leg Pain does not radiate. Pain currently is 4 out of 10 on a pain scale. Pain began 2 months ago. Neuro: Level of Consciousness is awake, alert, obeys commands, Oriented to person, place, time, situation. Cardiovascular: Patient's skin is warm and dry. Respiratory: Airway is patent Respiratory effort is even, unlabored, Respiratory pattern is regular, symmetrical. GI: No deficits noted. No signs and/or symptoms were reported involving the gastrointestinal system. : No deficits noted. No signs and/or symptoms were reported regarding the genitourinary system. EENT: No deficits noted. No signs and/or symptoms were reported regarding the EENT system. Derm: Skin is intact, Skin is pink, warm \T\ dry. Musculoskeletal: Circulation, motion, and sensation intact. Range of motion: intact in all extremities. 21:00 Reassessment: Patient appears in no apparent distress at this time. Patient and/or jb4 family updated on plan of care and expected duration. Pain level reassessed. Patient is alert, oriented x 3, equal unlabored respirations, skin warm/dry/pink. 22:00 Reassessment: Patient appears in no apparent distress at this time. Patient and/or jb4 family updated on plan of care and expected duration. Pain level reassessed. Patient is alert, oriented x 3, equal unlabored respirations, skin warm/dry/pink. 23:00 Reassessment: Patient appears in no apparent distress at this time. Patient and/or jb4 family updated on plan of care and expected duration. Pain level reassessed. Patient is alert, oriented x 3, equal unlabored respirations, skin warm/dry/pink. 01/10 00:00 Reassessment: Patient appears in no apparent distress at this time. Patient and/or jb4 family updated on plan of care and expected duration. Pain level reassessed. Patient is alert, oriented x 3, equal unlabored respirations, skin warm/dry/pink. 01:00 Reassessment: Patient appears in no apparent distress at this time. Patient and/or jb4 family updated on plan of care and expected duration. Pain level reassessed. PT is resting in bed with eyes closed, respirations are even and unlabored, with no s/s of pain or distress noted. 02:00 Reassessment: Patient appears in no apparent distress at this time. No changes from jb previously documented assessment. Patient and/or family updated on plan of care and expected duration. Pain level reassessed. 02:30 Reassessment: Report called to RALF Aguero at [facility]. [facility] 04:12 Reassessment: Patient appears in no apparent distress at this time. Patient and/or jb4 family updated on plan of care and expected duration. Pain level reassessed. Patient is alert, oriented x 3, equal unlabored respirations, skin warm/dry/pink. PT transferred to [facility] Via EMS. Psych: 01/09 19:45 Subjective: Delusions are synagogue, Hallucinations are auditory. Objective: Patient is jb4 cooperative, Speech is normal, Affect is appropriate. Interventions: Removed personal items and placed in bag. Suicide Risk Assessment: Sad Person Scale: Sex of patient: Male: Score 1 point. Age of patient: Score 0 point if patient falls outside of specified age parameters. Depression: Score 0 point if signs of depression are not present. Previous Attempt: Score 0 point if patient has not previously attempted suicide. Substance Abuse: Score 0 point if patient does not abuse alcohol or drugs. Rational Thinking: Score 1 point if patient is lacking rational thinking. Social Support: Score 0 if social support is present/available. Organized Plan: Score 0 if patient did not have an organized plan in place. Relationship: Score 1 point if patient is , , , or for a single male Chronic Sickness: Score 1 point if patient has illness, chronic, debilitating, or severe. Safety Checks: Personal items have been removed. Door is open. Patient uses tobacco. Commitment: Patient will be a voluntary commitment. Vital Signs: 19:40 BP 136 / 83; Pulse 103; Resp 18; Temp 99.0(O); Pulse Ox 94% on R/A; Weight 181.44 kg fc (R); Height 6 ft. 2 in. (187.96 cm) (R); Pain 0/10; 21:50 BP 139 / 59; Pulse 82; Resp 16; Pulse Ox 96% on R/A; mt 01/10 01:30 BP 131 / 59; Pulse 76; Resp 18; Pulse Ox 95% on R/A; jb4 01/09 19:40 Body Mass Index 51.36 (181.44 kg, 187.96 cm) ED Course: 01/09 19:39 Patient arrived in ED. tw4 19:39 Markus Hall MD is Attending Physician. tw4 19:40 Arm band placed on Patient placed in an exam room, on a stretcher. 19:43 Triage completed. 19:49 Chris Thompson, RN is Primary Nurse. jb4 19:49 Patient has correct armband on for positive identification. Bed in low position. Call light in reach. 20:13 Initial lab(s) drawn, by wa, sent to lab. wa 20:13 EKG done, by ED staff, reviewed by Markus Hall MD. wa 01/10 04:14 No provider procedures requiring assistance completed. Patient did not have IV access jb4 during this emergency room visit. Administered Medications: No medications were administered Outcome: 03:27 ER care complete, transfer ordered by . tw4 04:14 Transferred by ground EMS jb4 04:14 Condition: stable 04:14 Discharge instructions given to patient, Instructed on the need for transfer, Demonstrated understanding of instructions. 04:15 Patient left the ED. jb4 Signatures: Brook Mata RN RN Chris Thompson, RALF ARAMBULA [facility] Ej [facility] Markus Hall MD MD tw4
--- NOTE | 2019-01-10 03:28 | EDPHYS ---
Physician Documentation [facility] Name: Gil Shahid Age: 43 yrs Sex: Male : 1975 Arrival Date: 01/09/2019 Time: 19:39 Bed 15 Private MD: ED Physician Markus Hall HPI: 01/10 01:44 This 43 yrs old Male presents to ER via Ambulatory with complaints of Psych tw4 Problem. 01:44 The patient presents to the emergency department with anxiety, depression. Onset: The tw4 symptoms/episode began/occurred yesterday. Past psychiatric history: Prior diagnosis: bipolar disorder, depression, schizophrenia. Associated signs and symptoms: The patient has no apparent associated signs or symptoms. Severity of symptoms: At their worst the symptoms were moderate in the emergency department the symptoms are unchanged. The patient has not experienced similar symptoms in the past. Historical: - Allergies: 01/09 19:48 horseradish; fc 19:48 PENICILLINS; fc - Home Meds: 19:48 trazodone 100 mg Oral tab 2 tabs nightly [Active]; Cogentin Oral 1 mg twice a day fc [Active]; quetiapine 300 mg oral tab 2 in am and 1 at night [Active]; lithium carbonate 300 mg Oral TbER 1 tab 2 times per day [Active]; risperidone 3 mg oral tab 1 tab 2 times per day [Active]; - PMHx: 19:48 Depression; Schizophrenia; fc - Immunization history:: Last tetanus immunization: unknown. - Social history:: Smoking status: unknown. - Ebola Screening: : Patient negative for fever greater than or equal to 101.5 degrees Fahrenheit, and additional compatible Ebola Virus Disease symptoms Patient denies exposure to infectious person Patient denies travel to an Ebola-affected area in the 21 days before illness onset. ROS: 01/10 01:44 Constitutional: Negative for fever, chills, and weight loss, Eyes: Negative for injury, tw4 pain, redness, and discharge, Cardiovascular: Negative for chest pain, palpitations, and edema, Respiratory: Negative for shortness of breath, cough, wheezing, and pleuritic chest pain, Abdomen/GI: Negative for abdominal pain, nausea, vomiting, diarrhea, and constipation, Back: Negative for injury and pain, Skin: Negative for injury, rash, and discoloration. Neuro: Psych: Positive for anxiety, depression. Exam: 01:44 Constitutional: This is a well developed, well nourished patient who is awake, alert, tw4 and in no acute distress. Head/Face: Normocephalic, atraumatic. Chest/axilla: Normal chest wall appearance and motion. Nontender with no deformity. No lesions are appreciated. Cardiovascular: Regular rate and rhythm with a normal S1 and S2. No gallops, murmurs, or rubs. Normal PMI, no JVD. No pulse deficits. Respiratory: Lungs have equal breath sounds bilaterally, clear to auscultation and percussion. No rales, rhonchi or wheezes noted. No increased work of breathing, no retractions or nasal flaring. Abdomen/GI: Soft, non-tender, with normal bowel sounds. No distension or tympany. No guarding or rebound. No evidence of tenderness throughout. Back: No spinal tenderness. No costovertebral tenderness. Full range of motion. MS/ Extremity: Pulses equal, no cyanosis. Neurovascular intact. Full, normal range of motion. Neuro: Awake and alert, GCS 15, oriented to person, place, time, and situation. Cranial nerves II-XII grossly intact. Motor strength 5/5 in all extremities. Sensory grossly intact. Cerebellar exam normal. Normal gait. 01:44 Psych: Behavior/mood is pleasant, cooperative, anxious, depressed, Affect is flat, Oriented to person, place, time, Patient has no thoughts/intents to harm self or others. Vital Signs: 01/09 19:40 BP 136 / 83; Pulse 103; Resp 18; Temp 99.0(O); Pulse Ox 94% on R/A; Weight 181.44 kg fc (R); Height 6 ft. 2 in. (187.96 cm) (R); Pain 0/10; 21:50 BP 139 / 59; Pulse 82; Resp 16; Pulse Ox 96% on R/A; mt 01/10 01:30 BP 131 / 59; Pulse 76; Resp 18; Pulse Ox 95% on R/A; jb4 01/09 19:40 Body Mass Index 51.36 (181.44 kg, 187.96 cm) fc MDM: 01/09 19:39 Patient medically screened. tw4 01/10 05:36 Differential diagnosis: drug withdrawal. acute psychotic break, depression. Data tw4 reviewed: vital signs, nurses notes. Data interpreted: Pulse oximetry: Interpretation: normal. Counseling: I had a detailed discussion with the patient and/or guardian regarding: the historical points, exam findings, and any diagnostic results supporting the discharge/admit diagnosis. Other consultation: Pyschiatrist Dr Forte who accepts . 01/09 19:44 Order name: Acetaminophen; Complete Time: 02:29 4 01/09 19:44 Order name: Basic Metabolic Panel; Complete Time: 02: tw4 01/09 19:44 Order name: CBC with Diff; Complete Time: 02:4 01/10 02:33 Interpretation: Normal except: WBC 12.0. tw4 01/09 19:44 Order name: ETOH Level; Complete Time: 02: tw4 01/09 19:44 Order name: Hepatic Function; Complete Time: 02: tw4 01/09 19:44 Order name: PT-INR; Complete Time: 02: tw4 01/09 19:44 Order name: Ptt, Activated; Complete Time: 02:29 tw4 01/09 19:44 Order name: Salicylate; Complete Time: 02:29 tw4 01/09 19:44 Order name: Urine Drug Screen; Complete Time: 02:29 4 01/09 19:44 Order name: EKG; Complete Time: 19:45 4 01/09 19:44 Order name: EKG - Nurse/Tech; Complete Time: 20:14 4 01/09 19:44 Order name: IV Saline Lock; Complete Time: 20:14 tw4 01/09 19:44 Order name: Labs collected and sent; Complete Time: 20:14 4 01/09 21:33 Order name: Urine Dipstick--Ancillary (enter results); Complete Time: 02:29 tx5 01/09 19:44 Order name: Urine Dipstick-Ancillary (obtain specimen); Complete Time: 21:42 tw4 EC:40 Rate is 91 beats/min. QRS [place] is Normal. MD interval is normal. QRS interval is tw4 normal. QT interval is normal. No Q waves. T waves are Flattened in leads III, V5, V6. No ST changes noted. Clinical impression: NSR w/ Non-specific ST/T Changes. Interpreted by me. Reviewed by me. Administered Medications: No medications were administered Disposition: 01/10/19 03:27 Transfer ordered to Psych Facility. Diagnosis are Unspecified psychosis not due to a substance or known physiological condition, Bipolar disorder, current episode depressed, mild, Suicidal ideations. - Reason for transfer: Higher level of care. - Accepting physician is Dr Forte. - Condition is Stable. - Problem is an ongoing problem. - Symptoms are unchanged. Signatures: Dispatcher [employer] EDBrook Alvarez RN RN Chris Thompson RN RN jb4 Markus Hall MD MD tw4 Corrections: (The following items were deleted from the chart) 04:15 03:27 01/10/2019 03:27 Transfer ordered to Psych Facility. Diagnosis is Unspecified jb4 psychosis not due to a substance or known physiological condition; Bipolar disorder, current episode depressed, mild; Suicidal ideations. Reason for transfer: Higher level of care. Accepting physician is Dr Forte. Condition is Stable. Problem is an ongoing problem. Symptoms are unchanged. tw4
--- NOTE | 2019-01-10 06:14 | EKG ---
Test Date: 2019-01-09 Test Time: 20:00:35 Mortgage Loan Closer: TAMMY MEASUREMENT RESULTS: Intervals: Rate: 91 GA: 148 QRSD: 88 QT: 368 QTc: 452 Bishop: P: 36 GA: 148 QRS: 48 T: 48 INTERPRETIVE STATEMENTS: Normal sinus rhythm normal ECG Compared to ECG 12/05/2018 10:34:47 Sinus tachycardia no longer present Myocardial infarct finding no longer present Electronically Signed On 01-10-19 06:14:07 CDT by Martin Mcelroy
[2019-01-10 06:39] VITALS: TEMP 99
[2019-01-10 06:42] VITALS: BP 131/59; O2SAT 95
== END 2019-01-10 04:15 ==
LOC: ER 19:33
DX: F29 Unspecified psychosis not due to a substance or known physiological condition (principal); F31.9 Bipolar disorder, unspecified; R45.851 Suicidal ideations; Z88.0 Allergy status to penicillin; Z91.018 Allergy to other foods
CPT/HCPCS: 36415; 80048; 80076; 80307; 80320; 80329; 81003; 85025; 85610; 85730; 93005; 99285

== ENCOUNTER → 2019-12-04 | Emergency (ER) | payer OTHER ==
[~2019-12-04] MED LIST: DIAZEPAM 5 MG TABLET ONE; HALOPERIDOL LACT 5 MG/ML INJ ONE; LITHIUM CARBONATE 300 MG TAB ONE; LITHIUM CARBONATE 300 MG TAB PO ONE; LORAZEPAM 1 MG TABLET ONE; LORazepam 2 MG/ML VIAL ONE; NICOTINE 21 MG/PAT TD ONE; POTASSIUM 25 MEQ EFFERV TAB ONE; QUETIAPINE 100MG TAB PO ONE; RISPERIDONE 1 MG TABLET PO ONE; TRAZODONE 150 MG TAB PO ONE; TRAZODONE 50 MG TABLET PO ONE; WATER FOR INJ,STERILE 10 ML ONE; ZIPRASIDONE MESYLA 20 MG/VIAL IM ONE
--- OUTSIDE RECORDS SUMMARY | 2019-12-04 12:53 | XMS REPORT | Clinical Summary ---
:1975 Author Organization [facility] Address [address] [place] [address] Care Team Providers Name Role Phone Asked, No Pcp Primary Care Provider Unavailable Allergies No Known Allergies Medications Not on file Active Problems Problem Noted Date Morbid obesity 08/18/2018 Schizoaffective disorder, bipolar type 08/08/2018 Social History Tobacco Use Types Packs/Day Years Used Date Never Assessed Sex Assigned at Date Recorded Not on file Job Start Date Occupation Industry Not on file Not on file Not on file Travel History Travel Start Travel End No recent travel history available. 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
--- OUTSIDE RECORDS SUMMARY | 2019-12-04 12:56 | XMS REPORT | Continuity of Care Document ---
:1975 Author Organization [facility] Address [address] [place] [address] Care Team Providers Name Role Phone UNKNOWN Primary Care Physician Unavailable Neptali RAO Attending Clinician Peter Pinto MD Attending Clinician MARCIE PINTO M.D. 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 Allergies, Adverse Reactions, Alerts Allergy Allergy Status Severity Reaction(s) Onset Inactive Treating Comm ents Source Name Type Date Date Clinician narendra DA Active [place] [facility]: d 00 [facility] rice DA Active [facility] 07[facility]16 [facility] 00:00: d 00 [facility] Penicill DA Active [facility] 4-11 [place] 00:00: [address] horserad FA Active [facility] 07[facility]: [address] rice FA Active [facility] 07-16 00:00: [address] Social History Social Habit Start Date Stop Date Quantity Comments Source Sex Assigned At David song Zoroastrian Medications This patient has no known medications. Procedures This patient has no known procedures. Encounters Start End Encounter Admission Attending Care Care Encounter Source Date/Time Date/Time Type Type Clinicians Facility Department ID 2019-08-28 2019-08-[address] [id number] 12:51:55 23:59:00 [place]counter [place] [id number] [facility] [id number] [place] [id number] 2018-12-05 2018-12-05 [facility] Marcie Pinto [facility]2.840. [id number] 11:57:54 23:59:00 Encounter [place] Gunderson [id number] [facility] [id number] [place] [id number] Results Test Description Test Time Test Comments Results Result Comments Source Valproic Acid Level 2019-10-07 07:44:03 Test Item Value Reference Range Interpretation Comme nts Valproic Acid Level (test code 108.0 mcg/mL N A therapeutic range of 50-100 ug/ml = Valproic Acid Level) may i ndicate effective concentrations for many patien ts; however some individuals are best treated at concentrations outside this range. The physician peter salamanca determine the appropriate the rapeutic range for each patient. POC [id number] 06:20:19 Test Item Value Reference Range Interpretation Comments Glucose POC (test 111 mg/dL 70-115 If you con director design your code = Glucose POC) patient critically ill, the Perla-Accu Check Infrom II meter should not be used for Glucose determination. Draw a venous Glucose and send to the main Lab for analysis. POC [id number] 18:53:44 Test Item Value Reference Range Interpretation Comments Glucose POC (test 148 mg/dL 70-115 H If you con director design your code = Glucose POC) patient critically ill, the Perla-Accu Check Infrom II meter should not be used for Glucose determination. Draw a venous Glucose and send to the main Lab for analysis. Basic Metabolic [id number] 10:36:07 Test Item Value Reference Range Interpretation Comments Sodium Level (test 139.0 mmol/L 135.0-145.0 code = Sodium Level) Potassium Level 5.2 mmol/L 3.5-5.1 H (test code = Potassium Level) Chloride Level (test 101 mmol/L 98-105 code = Chloride Level) CO2 (test code = 22 mmol/L 22-29 CO2) Anion Gap (test code 16 mmol/L 7-16 = Anion Gap) BUN (test code = 16.60 mg/dL 6.00-20.00 BUN) Creatinine Level 1.00 mg/dL 0.70-1.20 (test code = Creatinine Level) BUN/Creat Ratio 17 N (test code = BUN/Creat Ratio) Glucose Level (test 112 mg/dL 70-115 code = Glucose Level) Calcium Level (test 9.4 mg/dL 8.3-10.5 code = Calcium Level) eGFR AA (test code = >60 N eGFR (e stimated eGFR AA) mL/min/1.73 m2 Glomerular Filtration Rate ) is an estimated va lue, calculated from the patient's serum creatinine usin g the MDRD equation. It is NOT the patient 's actual GFR. The eGFR provides a more clinically usef ul measure of kidn ey disease than se rum creatinine alone.This calculation annabella es sex and race in to account, if the information is provided. If th e race is not provided, and t he patient is -Belem n, multiply by 1.2 12. If sex is not provided, and t he patient is fema le, multiply by 0.7 42. Results for pat ients <18 years of ag e have not been validated by th e MDRD study and should be interpreted wit h caution. eGFR R esult Interpretation: eGFR > or = 60 is in the Normal RangeeGF R < 60 may mean kid brady diseaseeGFR < 1 5 may mean kidney failure Rang es recommended by the National Kidney Foundation, http://nkdep.ni h.gov eGFR Non-AA (test >60.00 N eGFR (zaria mated code = eGFR Non-AA) mL/min/1.73 m2 Glomer ular Filtration Rate ) is an estimated va lue, calculated from the patient's serum creatinine usin g the MDRD equation. It is NOT the patient 's actual GFR. The eGFR provides a more clinically usef ul measure of kidn ey disease than se rum creatinine alone.This calculation annabella es sex and race in to account, if the information is provided. If th e race is not provided, and t he patient is -Belem n, multiply by 1.2 12. If sex is not provided, and t he patient is fema le, multiply by 0.7 42. Results for pat ients <18 years of ag e have not been validated by th e MDRD study and should be interpreted wit h caution. eGFR R esult Interpretation: eGFR > or = 60 is in the Normal RangeeGF R < 60 may mean kid brady diseaseeGFR < 1 5 may mean kidney failure Rang es recommended by the National Kidney Foundation, http://nkdep.ni h.gov Valproic Acid [id number] 06:52:57 Test Item Value Reference Range Interpretation Comments Valproic Acid Level (test code 82.2 ug/mL(g) 50.0-100.0 = Valproic Acid Level) RPR [id number] 20:39:45 Test Item Value Reference Range Interpretation Comments RPR Qual (test code = RPR Qual) Non-Reactive Non-Reactive Reactive Control (test code = Reactive Reactive Control) Weak Reactive Control (test Weak Reactive code = Weak Reactive Control) Non-Reactive Control (test code Non-Reactive = Non-Reactive Control) Lot # (test code = Lot #) [id number] N Expiration Dt (test code = 04.06.2020 N Expiration Dt) Thyroid Stimulating [id number] 16:20:26 Test Item Value Reference Range Interpretation Comments TSH (test code = TSH) 2.400 mIU/mL 0.270-4.200 Ethanol Level [id number] 10:02:04 Test Item Value Reference Range Interpretation Comments U Ethanol (test code = U Ethanol) <.00 g/dL .00-.01 U Ethanol Inst (test code = U <0.01 N Ethanol Inst) Hemoglobin [id number] 10:01:19 Test Item Value Reference Range Interpretation Comments Hemoglobin A1c (test code 5.8 % 4.8-5.9 No n Diabetic = Hemoglobin A1c) 4.8-5.9%Di abetic <7.0% Lipid [id number] 10:01:19 Test Item Value Reference Range Interpretation Comments Cholesterol Total 193 mg/dL 0-200 RISK OF HE ART (test code = DISEASEPublishe d by Cholesterol Total) [place] [employer] Tara lyte Optimal Borderl ine Increased RiskC HOL <200 200-239 >2 40TRIG <150 150-199 >2 00HDL Male >60 <40H DL Female >60 <5 0LDL <100 130-159 >1 60LDL Near optimal is 100-129 Triglycerides (test 157 mg/dL 9-200 code = Triglycerides) HDL (test code = HDL) 44 mg/dL 40-60 LDL (test code = LDL) 118 mg/dL 0-130 The eq uation being used in this calcula tion is LDL = (Chol - H DL) - (Trig / 5) VLDL (test code = 31 mg/dL 5-40 The equati on being used VLDL) in this calcula tion is VLDL = Trig / 5 Chol/HDL (test code = 4.4 ratio 0.0-5.0 Chol/HDL) LDL/HDL Ratio (test 3 N The equa tion being used code = LDL/HDL Ratio) in thi s calculation is LDL/HDL Ratio=L DL Calc/HDL Chol Comprehensive Metabolic [id number] 23:24:47 Test Item Value Reference Range Interpretation Comments Sodium Level (test code = Sodium 129.0 mmol/L 135.0-145.0 L Level) Potassium Level (test code = 4.2 mmol/L 3.5-5.1 Potassium Level) Chloride Level (test code = 92 mmol/L 98-105 L Chloride Level) CO2 (test code = CO2) 25 mmol/L 22-29 Anion Gap (test code = Anion 12 mmol/L 7-16 Gap) BUN (test code = BUN) 20.90 mg/dL 6.00-20.00 H Creatinine Level (test code = 0.90 mg/dL 0.70-1.20 Creatinine Level) BUN/Creat Ratio (test code = 23 N BUN/Creat Ratio) Glucose Level (test code = 137 mg/dL 70-115 H Glucose Level) Calcium Level (test code = 9.6 mg/dL 8.3-10.5 Calcium Level) Alk Phos (test code = Alk Phos) 76 U/L 40-129 Bilirubin Total (test code = 0.5 mg/dL 0.1-0.9 Bilirubin Total) Albumin Level (test code = 4.2 g/dL 3.5-5.2 Albumin Level) Protein Total (test code = 7.1 g/dL 6.4-8.3 Protein Total) ALT (test code = ALT) 16 U/L 1-41 AST (test code = AST) 16 U/L 1-40 Globulin (test code = Globulin) 2.9 g/dL 2.9-3.1 A/G Ratio (test code = A/G 1.4 ratio N Ratio) Comprehensive Metabolic [id number] 23:24:47 Test Item Value Reference Range Interpretation Comments Sodium Level (test 129.0 mmol/L 135.0-145.0 L code = Sodium Level) Potassium Level 4.2 mmol/L 3.5-5.1 (test code = Potassium Level) Chloride Level (test 92 mmol/L 98-105 L code = Chloride Level) CO2 (test code = 25 mmol/L 22-29 CO2) Anion Gap (test code 12 mmol/L 7-16 = Anion Gap) BUN (test code = 20.90 mg/dL 6.00-20.00 H BUN) Creatinine Level 0.90 mg/dL 0.70-1.20 (test code = Creatinine Level) BUN/Creat Ratio 23 N (test code = BUN/Creat Ratio) Glucose Level (test 137 mg/dL 70-115 H code = Glucose Level) Calcium Level (test 9.6 mg/dL 8.3-10.5 code = Calcium Level) Alk Phos (test code 76 U/L 40-129 = Alk Phos) Bilirubin Total 0.5 mg/dL 0.1-0.9 (test code = Bilirubin Total) Albumin Level (test 4.2 g/dL 3.5-5.2 code = Albumin Level) Protein Total (test 7.1 g/dL 6.4-8.3 code = Protein Total) ALT (test code = 16 U/L 1-41 ALT) AST (test code = 16 U/L 1-40 AST) Globulin (test code 2.9 g/dL 2.9-3.1 = Globulin) A/G Ratio (test code 1.4 ratio N = A/G Ratio) eGFR AA (test code = >60 N eGFR (e stimated eGFR AA) mL/min/1.73 m2 Glomerular Filtration Rate ) is an estimated va lue, calculated from the patient's serum creatinine usin g the MDRD equation. It is NOT the patient 's actual GFR. The eGFR provides a more clinically usef ul measure of kidn ey disease than se rum creatinine alone.This calculation annabella es sex and race in to account, if the information is provided. If th e race is not provided, and t he patient is -Belem n, multiply by 1.2 12. If sex is not provided, and t he patient is fema le, multiply by 0.7 42. Results for pat ients <18 years of ag e have not been validated by th e MDRD study and should be interpreted wit h caution. eGFR R esult Interpretation: eGFR > or = 60 is in the Normal RangeeGF R < 60 may mean kid brady diseaseeGFR < 1 5 may mean kidney failure Rang es recommended by the National Kidney Foundation, http://nkdep.ni h.gov Comprehensive Metabolic [id number] 23:24:47 Test Item Value Reference Range Interpretation Comments Sodium Level (test 129.0 mmol/L 135.0-145.0 L code = Sodium Level) Potassium Level 4.2 mmol/L 3.5-5.1 (test code = Potassium Level) Chloride Level (test 92 mmol/L 98-105 L code = Chloride Level) CO2 (test code = 25 mmol/L 22-29 CO2) Anion Gap (test code 12 mmol/L 7-16 = Anion Gap) BUN (test code = 20.90 mg/dL 6.00-20.00 H BUN) Creatinine Level 0.90 mg/dL 0.70-1.20 (test code = Creatinine Level) BUN/Creat Ratio 23 N (test code = BUN/Creat Ratio) Glucose Level (test 137 mg/dL 70-115 H code = Glucose Level) Calcium Level (test 9.6 mg/dL 8.3-10.5 code = Calcium Level) Alk Phos (test code 76 U/L 40-129 = Alk Phos) Bilirubin Total 0.5 mg/dL 0.1-0.9 (test code = Bilirubin Total) Albumin Level (test 4.2 g/dL 3.5-5.2 code = Albumin Level) Protein Total (test 7.1 g/dL 6.4-8.3 code = Protein Total) ALT (test code = 16 U/L 1-41 ALT) AST (test code = 16 U/L 1-40 AST) Globulin (test code 2.9 g/dL 2.9-3.1 = Globulin) A/G Ratio (test code 1.4 ratio N = A/G Ratio) eGFR AA (test code = >60 N eGFR (e stimated eGFR AA) mL/min/1.73 m2 Glomerular Filtration Rate ) is an estimated va lue, calculated from the patient's serum creatinine usin g the MDRD equation. It is NOT the patient 's actual GFR. The eGFR provides a more clinically usef ul measure of kidn ey disease than se rum creatinine alone.This calculation annabella es sex and race in to account, if the information is provided. If th e race is not provided, and t he patient is -Belem n, multiply by 1.2 12. If sex is not provided, and t he patient is fema le, multiply by 0.7 42. Results for pat ients <18 years of ag e have not been validated by e MDRD study and should be interpreted wit h caution. eGFR R esult Interpretation: eGFR > or = 60 is in the Normal RangeeGF R < 60 may mean kid brady diseaseeGFR < 1 5 may mean kidney failure Rang es recommended by the National Kidney Foundation, http://nkdep.ni h.gov eGFR Non-AA (test >60.00 N eGFR (zaria mated code = eGFR Non-AA) mL/min/1.73 m2 Glomer ular Filtration Rate ) is an estimated va lue, calculated from the patient's serum creatinine usin g the MDRD equation. It is NOT the patient 's actual GFR. The eGFR provides a more clinically usef ul measure of kidn ey disease than se rum creatinine alone.This calculation annabella es sex and race in to account, if the information is provided. If th e race is not provided, and t he patient is -Belem n, multiply by 1.2 12. If sex is not provided, and t he patient is femgloria le, multiply by 0.7 42. Results for pat ients <18 years of ag e have not been validated by e MDRD study and should be interpreted wit h caution. eGFR R esult Interpretation: eGFR > or = 60 is in the Normal RangeeGF R < 60 may mean kid brady diseaseeGFR < 1 5 may mean kidney failure Rang es recommended by the National Kidney Foundation, http://nkdep.ni h.gov Complete Blood Count with [id number] 23:07:13 Test Item Value Reference Range Interpretation Comments WBC (test code = WBC) 12.6 x10 4.4-10.5 H RBC (test code = RBC) 5.47 x10 4.10-5.70 Hgb (test code = Hgb) 16.9 g/dL 13.4-17.4 Hct (test code = Hct) 51.1 % 38.7-52.0 MCV (test code = MCV) 93.40 fL 80.00-100.00 MCHC (test code = 33.10 g/dL 32.00-37.50 MCHC) RDW CV (test code = 12.5 % 11.5-14.5 RDW CV) MCH (test code = MCH) 30.9 pg 27.0-32.5 Platelets (test code = 193.0 x10 140.0-440.0 Platelets) MPV (test code = MPV) 11.6 fL N Slide Review (test Auto Auto Result cr eated by code = Slide Review) GL_SJM_ SLIDE_REV_AUTO nRBC (test code = 0 N nRBC) NRBC Abs (test code = 0.00 x10 N NRBC Abs) IPF (test code = IPF) 0 % N Automated [id number] 23:07:13 Test Item Value Reference Range Interpretation Comments Neutro Auto (test code = Neutro 59.1 % 36.0-70.0 Auto) Lymph Auto (test code = Lymph Auto) 31.2 % 12.0-44.0 [place] Auto (test code = [place] Auto) 8.1 % 0.0-11.0 Eos, Auto (test code = Eos, Auto) 0.8 % 0.0-7.0 Basophil Auto (test code = Basophil 0.6 % 0.0-2.0 Auto) Neutro Absolute (test code = Neutro 7.4 x10 1.6-7.4 Absolute) Lymph Absolute (test code = Lymph 3.92 x10 .50-4.60 Absolute) [place] Absolute (test code = [place] 1.02 x10 .00-1.20 Absolute) Eos Absolute (test code = Eos 0.10 x10 0.00-0.74 Absolute) Baso Absolute (test code = Baso 0.07 x10 0.00-0.21 Absolute) IG [id number] 23:07:13 Test Item Value Reference Range Interpretation Comments IG (test code = IG) 0.2 % 0.0-5.0 IG Abs (test code = IG Abs) 0 x10 N Urine Drug [id number] 23:02:51 Test Item Value Reference Range Interpretation Comments Amphetamine Screen Ur Negative Negative (test code = Amphetamine Screen Ur) Barbiturate Screen Ur Negative Negative (test code = Barbiturate Screen Ur) Benzodiazepines Ur (test Negative Negative code = Benzodiazepines Ur) Cocaine Screen Ur (test Negative Negative code = Cocaine Screen Ur) U Methadone Scr (test Negative Negative code = U Methadone Scr) Opiate Screen Ur (test Negative Negative code = Opiate Screen Ur) U PCP Scrn (test code = Negative Negative U PCP Scrn) Cannabinoid Screen Ur POSITIVE Negative A (test code = Cannabinoid Screen Ur) U TCA (test code = U Negative Negative The res ults of all TCA) drug screen calin ts are only preliminar y. Clinical consideration a nd professional ju dgment should be appli ed to any drug of abu se test result, particularly wh en preliminary pos itive results are obt ained. Please order a separate confir matory test if desired . POC [id number] 10:44:31 Test Item Value Reference Range Interpretation Comments Glucose POC (test 163 mg/dL 70-115 H Notify RN or MDIf you code = Glucose POC) consider your patient critically ill, the Perla-Accu Chec k Infrom II meter should not be used for Glucos e determination. Draw a venous Glucose and send to the main Lab for analysis. POC [id number] 19:30:31 Test Item Value Reference Range Interpretation Comments Glucose POC (test 126 mg/dL 70-115 H If you con director design your code = Glucose POC) patient critically ill, the Perla-Accu Check Infrom II meter should not be used for Glucose determination. Draw a venous Glucose and send to the main Lab for analysis. POC [id number] 15:25:26 Test Item Value Reference Range Interpretation Comments Glucose POC (test 154 mg/dL 70-115 H If you con director design your code = Glucose POC) patient critically ill, the Perla-Accu Check Infrom II meter should not be used for Glucose determination. Draw a venous Glucose and send to the main Lab for analysis. POC [id number] 11:02:57 Test Item Value Reference Range Interpretation Comments Glucose POC (test 112 mg/dL 70-115 If you con director design your code = Glucose POC) patient critically ill, the Perla-Accu Check Infrom II meter should not be used for Glucose determination. Draw a venous Glucose and send to the main Lab for analysis. POC [id number] 06:11:55 Test Item Value Reference Range Interpretation Comments Glucose POC (test 100 mg/dL 70-115 If you con director design your code = Glucose POC) patient critically ill, the Perla-Accu Check Infrom II meter should not be used for Glucose determination. Draw a venous Glucose and send to the main Lab for analysis. POC [id number] 19:45:05 Test Item Value Reference Range Interpretation Comments Glucose POC (test 161 mg/dL 70-115 H If you con director design your code = Glucose POC) patient critically ill, the Perla-Accu Check Infrom II meter should not be used for Glucose determination. Draw a venous Glucose and send to the main Lab for analysis. POC [id number] 05:53:54 Test Item Value Reference Range Interpretation Comments Glucose POC (test 89 mg/dL 70-115 Notify RN or MDIf you code = Glucose POC) consider your patient critically ill, the Perla-Accu Chec k Infrom II meter should not be used for Glucos e determination. Draw a venous Glucose and send to the main Lab for analysis. POC [id number] 19:18:19 Test Item Value Reference Range Interpretation Comments Glucose POC (test 125 mg/dL 70-115 H Notify RN or MDIf you code = Glucose POC) consider your patient critically ill, the Perla-Accu Chec k Infrom II meter should not be used for Glucos e determination. Draw a venous Glucose and send to the main Lab for analysis. POC [id number] 15:56:56 Test Item Value Reference Range Interpretation Comments Glucose POC (test 110 mg/dL 70-115 If you con director design your code = Glucose POC) patient critically ill, the Perla-Accu Check Infrom II meter should not be used for Glucose determination. Draw a venous Glucose and send to the main Lab for analysis. POC [id number] 11:25:25 Test Item Value Reference Range Interpretation Comments Glucose POC (test 118 mg/dL 70-115 H If you con director design your code = Glucose POC) patient critically ill, the Perla-Accu Check Infrom II meter should not be used for Glucose determination. Draw a venous Glucose and send to the main Lab for analysis. POC [id number] 19:12:51 Test Item Value Reference Range Interpretation Comments Glucose POC (test 164 mg/dL 70-115 H If you con director design your code = Glucose POC) patient critically ill, the Perla-Accu Check Infrom II meter should not be used for Glucose determination. Draw a venous Glucose and send to the main Lab for analysis. POC [id number] 16:26:20 Test Item Value Reference Range Interpretation Comments Glucose POC (test 89 mg/dL 70-115 Notify RN or MDIf you code = Glucose POC) consider your patient critically ill, the Perla-Accu Chec k Infrom II meter should not be used for Glucos e determination. Draw a venous Glucose and send to the main Lab for analysis. POC [id number] 12:09:50 Test Item Value Reference Range Interpretation Comments Glucose POC (test 145 mg/dL 70-115 H If you con director design your code = Glucose POC) patient critically ill, the Perla-Accu Check Infrom II meter should not be used for Glucose determination. Draw a venous Glucose and send to the main Lab for analysis. POC [id number] 06:36:48 Test Item Value Reference Range Interpretation Comments Glucose POC (test 117 mg/dL 70-115 H If you con director design your code = Glucose POC) patient critically ill, the Perla-Accu Check Infrom II meter should not be used for Glucose determination. Draw a venous Glucose and send to the main Lab for analysis. POC [id number] 19:06:52 Test Item Value Reference Range Interpretation Comments Glucose POC (test 114 mg/dL 70-115 If you con director design your code = Glucose POC) patient critically ill, the Perla-Accu Check Infrom II meter should not be used for Glucose determination. Draw a venous Glucose and send to the main Lab for analysis. POC [id number] 06:28:19 Test Item Value Reference Range Interpretation Comments Glucose POC (test 90 mg/dL 70-115 Notify RN or MDIf you code = Glucose POC) consider your patient critically ill, the Perla-Accu Chec k Infrom II meter should not be used for Glucos e determination. Draw a venous Glucose and send to the main Lab for analysis. POC [id number] 18:57:40 Test Item Value Reference Range Interpretation Comments Glucose POC (test 155 mg/dL 70-115 H Notify RN or MDIf you code = Glucose POC) consider your patient critically ill, the Perla-Accu Chec k Infrom II meter should not be used for Glucos e determination. Draw a venous Glucose and send to the main Lab for analysis. POC [id number] 06:06:15 Test Item Value Reference Range Interpretation Comments Glucose POC (test 95 mg/dL 70-115 If you con director design your code = Glucose POC) patient critically ill, the Perla-Accu Check Infrom II meter should not be used for Glucose determination. Draw a venous Glucose and send to the main Lab for analysis. POC [id number] 19:15:40 Test Item Value Reference Range Interpretation Comments Glucose POC (test 116 mg/dL 70-115 H If you con director design your code = Glucose POC) patient critically ill, the Perla-Accu Check Infrom II meter should not be used for Glucose determination. Draw a venous Glucose and send to the main Lab for analysis. POC [id number] 15:43:36 Test Item Value Reference Range Interpretation Comments Glucose POC (test 127 mg/dL 70-115 H Notify RN or MDIf you code = Glucose POC) consider your patient critically ill, the Perla-Accu Chec k Infrom II meter should not be used for Glucos e determination. Draw a venous Glucose and send to the main Lab for analysis. POC [id number] 11:38:38 Test Item Value Reference Range Interpretation Comments Glucose POC (test 132 mg/dL 70-115 H If you con director design your code = Glucose POC) patient critically ill, the Perla-Accu Check Infrom II meter should not be used for Glucose determination. Draw a venous Glucose and send to the main Lab for analysis. POC [id number] 05:31:40 Test Item Value Reference Range Interpretation Comments Glucose POC (test 106 mg/dL 70-115 Notify RN or MDIf you code = Glucose POC) consider your patient critically ill, the Perla-Accu Chec k Infrom II meter should not be used for Glucos e determination. Draw a venous Glucose and send to the main Lab for analysis. POC [id number] 19:47:44 Test Item Value Reference Range Interpretation Comments Glucose POC (test 113 mg/dL 70-115 Notify RN or MDIf you code = Glucose POC) consider your patient critically ill, the [employer] Infrom II meter should not be used for Glucos e determination. Draw a venous Glucose and send to the main Lab for analysis. POC [id number] 15:40:37 Test Item Value Reference Range Interpretation Comments Glucose POC (test 122 mg/dL 70-115 H Notify RN or MDIf you code = Glucose POC) consider your patient critically ill, the [employer] Che[employer] k Infrom II meter should not be used for Glucos e determination. Draw a venous Glucose and send to the main Lab for analysis. POC [id number] 19:20:04 Test Item Value Reference Range Interpretation Comments Glucose POC (test 133 mg/dL 70-115 H If you con director design your code = Glucose POC) patient critically ill, the [employer]-Accu Check Infrom II meter should not be used for Glucose determination. Draw a venous Glucose and send to the main Lab for analysis. POC [id number] 16:45:35 Test Item Value Reference Range Interpretation Comments Glucose POC (test 126 mg/dL 70-115 H If you con director design your code = Glucose POC) patient critically ill, the [employer]-Accu Check Infrom II meter should not be used for Glucose determination. Draw a venous Glucose and send to the main Lab for analysis. POC [id number] 14:47:34 Test Item Value Reference Range Interpretation Comments Glucose POC (test 110 mg/dL 70-115 If you con director design your code = Glucose POC) patient critically ill, the [employer]-Accu Check Infrom II meter should not be used for Glucose determination. Draw a venous Glucose and send to the main Lab for analysis. POC [id number] 05:38:30 Test Item Value Reference Range Interpretation Comments Glucose POC (test 92 mg/dL 70-115 Notify RN or MDIf you code = Glucose POC) consider your patient critically ill, the [employer] k Infrom II meter should not be used for Glucos e determination. Draw a venous Glucose and send to the main Lab for analysis. POC [id number] 19:36:04 Test Item Value Reference Range Interpretation Comments Glucose POC (test 163 mg/dL 70-115 H If you con director design your code = Glucose POC) patient critically ill, the [employer]-Accu Check Infrom II meter should not be used for Glucose determination. Draw a venous Glucose and send to the main Lab for analysis. POC [id number] 16:32:00 Test Item Value Reference Range Interpretation Comments Glucose POC (test 94 mg/dL 70-115 If you con director design your code = Glucose POC) patient critically ill, the [employer]-Accu Check Infrom II meter should not be used for Glucose determination. Draw a venous Glucose and send to the main Lab for analysis. POC [id number] 13:17:31 Test Item Value Reference Range Interpretation Comments Glucose POC (test 144 mg/dL 70-115 H If you con director design your code = Glucose POC) patient critically ill, the [employer]-Acc[employer] Check Infrom II meter should not be used for Glucose determination. Draw a venous Glucose and send to the main Lab for analysis. POC [id number] 05:38:32 Test Item Value Reference Range Interpretation Comments Glucose POC (test 104 mg/dL 70-115 Notify RN or MDIf you code = Glucose POC) consider your patient critically ill, the [employer] k Infrom II meter should not be used for Glucos e determination. Draw a venous Glucose and send to the main Lab for analysis. POC [id number] 19:40:27 Test Item Value Reference Range Interpretation Comments Glucose POC (test 129 mg/dL 70-115 H If you con director design your code = Glucose POC) patient critically ill, the [employer]-Acc[employer] Check Infrom II meter should not be used for Glucose determination. Draw a venous Glucose and send to the main Lab for analysis. POC [id number] 06:01:31 Test Item Value Reference Range Interpretation Comments Glucose POC (test 92 mg/dL 70-115 If you con director design your code = Glucose POC) patient critically ill, the [employer]-Accu Check Infrom II meter should not be used for Glucose determination. Draw a venous Glucose and send to the main Lab for analysis. POC [id number] 18:59:36 Test Item Value Reference Range Interpretation Comments Glucose POC (test 120 mg/dL 70-115 H If you con director design your code = Glucose POC) patient critically ill, the [employer]-Accu Check Infrom II meter should not be used for Glucose determination. Draw a venous Glucose and send to the main Lab for analysis. POC [id number] 06:43:32 Test Item Value Reference Range Interpretation Comments Glucose POC (test 100 mg/dL 70-115 If you con director design your code = Glucose POC) patient critically ill, the [employer]-Acc[employer] Check Infrom II meter should not be used for Glucose determination. Draw a venous Glucose and send to the main Lab for analysis. POC [id number] 19:49:03 Test Item Value Reference Range Interpretation Comments Glucose POC (test 135 mg/dL 70-115 H If you con director design your code = Glucose POC) patient critically ill, the [employer]-Acc[employer] Check Infrom II meter should not be used for Glucose determination. Draw a venous Glucose and send to the main Lab for analysis. POC [id number] 17:14:54 Test Item Value Reference Range Interpretation Comments Glucose POC (test 128 mg/dL 70-115 H If you con director design your code = Glucose POC) patient critically ill, the [employer]-Acc[employer] Check Infrom II meter should not be used for Glucose determination. Draw a venous Glucose and send to the main Lab for analysis. POC [id number] 11:23:56 Test Item Value Reference Range Interpretation Comments Glucose POC (test 93 mg/dL 70-115 Notify RN or MDIf you code = Glucose POC) consider your patient critically ill, the [employer] Che[employer] k Infrom II meter should not be used for Glucos e determination. Draw a venous Glucose and send to the main Lab for analysis. Valproic Acid [id number] 09:40:22 Test Item Value Reference Range Interpretation Comments Valproic Acid Level (test code 95.6 ug/mL(g) 50.0-100.0 = Valproic Acid Level) POC [id number] 05:52:56 Test Item Value Reference Range Interpretation Comments Glucose POC (test 91 mg/dL 70-115 If you con director design your code = Glucose POC) patient critically ill, the [employer]-Acc[employer] Check Infrom II meter should not be used for Glucose determination. Draw a venous Glucose and send to the main Lab for analysis. POC [id number] 19:59:22 Test Item Value Reference Range Interpretation Comments Glucose POC (test 110 mg/dL 70-115 If you con director design your code = Glucose POC) patient critically ill, the [employer]-Acc[employer] Check Infrom II meter should not be used for Glucose determination. Draw a venous Glucose and send to the main Lab for analysis. POC [id number] 17:08:59 Test Item Value Reference Range Interpretation Comments Glucose POC (test 99 mg/dL 70-115 Notify RN or MDIf you code = Glucose POC) consider your patient critically ill, the [employer] k Infrom II meter should not be used for Glucos e determination. Draw a venous Glucose and send to the main Lab for analysis. POC [id number] 11:10:24 Test Item Value Reference Range Interpretation Comments Glucose POC (test 99 mg/dL 70-115 Notify RN or MDIf you code = Glucose POC) consider your patient critically ill, the [employer] k Infrom II meter should not be used for Glucos e determination. Draw a venous Glucose and send to the main Lab for analysis. POC [id number] 19:46:22 Test Item Value Reference Range Interpretation Comments Glucose POC (test 128 mg/dL 70-115 H If you con director design your code = Glucose POC) patient critically ill, the [employer]-Acc[employer] Check Infrom II meter should not be used for Glucose determination. Draw a venous Glucose and send to the main Lab for analysis. POC [id number] 11:27:25 Test Item Value Reference Range Interpretation Comments Glucose POC (test 102 mg/dL 70-115 If you con director design your code = Glucose POC) patient critically ill, the [employer]-Acc[employer] Check Infrom II meter should not be used for Glucose determination. Draw a venous Glucose and send to the main Lab for analysis. POC [id number] 06:47:48 Test Item Value Reference Range Interpretation Comments Glucose POC (test 101 mg/dL 70-115 If you con director design your code = Glucose POC) patient critically ill, the [employer]-Accu Check Infrom II meter should not be used for Glucose determination. Draw a venous Glucose and send to the main Lab for analysis. POC [id number] 20:03:19 Test Item Value Reference Range Interpretation Comments Glucose POC (test 123 mg/dL 70-115 H If you con director design your code = Glucose POC) patient critically ill, the [employer]-Accu Check Infrom II meter should not be used for Glucose determination. Draw a venous Glucose and send to the main Lab for analysis. POC [id number] 15:28:48 Test Item Value Reference Range Interpretation Comments Glucose POC (test 98 mg/dL 70-115 Notify RN or MDIf you code = Glucose POC) consider your patient critically ill, the [employer] k Infrom II meter should not be used for Glucos e determination. Draw a venous Glucose and send to the main Lab for analysis. POC [id number] 11:00:51 Test Item Value Reference Range Interpretation Comments Glucose POC (test 93 mg/dL 70-115 Notify RN or MDIf you code = Glucose POC) consider your patient critically ill, the [employer] k Infrom II meter should not be used for Glucos e determination. Draw a venous Glucose and send to the main Lab for analysis. POC [id number] 06:16:44 Test Item Value Reference Range Interpretation Comments Glucose POC (test 91 mg/dL 70-115 If you con director design your code = Glucose POC) patient critically ill, the [employer]-Accu Check Infrom II meter should not be used for Glucose determination. Draw a venous Glucose and send to the main Lab for analysis. POC [id number] 18:58:19 Test Item Value Reference Range Interpretation Comments Glucose POC (test 130 mg/dL 70-115 H Notify RN or MDIf you code = Glucose POC) consider your patient critically ill, the [employer] k Infrom II meter should not be used for Glucos e determination. Draw a venous Glucose and send to the main Lab for analysis. POC [id number] 15:24:19 Test Item Value Reference Range Interpretation Comments Glucose POC (test 120 mg/dL 70-115 H Notify RN or MDIf you code = Glucose POC) consider your patient critically ill, the [employer] k Infrom II meter should not be used for Glucos e determination. Draw a venous Glucose and send to the main Lab for analysis. POC [id number] 11:02:15 Test Item Value Reference Range Interpretation Comments Glucose POC (test 105 mg/dL 70-115 Notify RN or MDIf you code = Glucose POC) consider your patient critically ill, the [employer] k Infrom II meter should not be used for Glucos e determination. Draw a venous Glucose and send to the main Lab for analysis. POC [id number] 06:35:45 Test Item Value Reference Range Interpretation Comments Glucose POC (test 107 mg/dL 70-115 Notify RN or MDIf you code = Glucose POC) consider your patient critically ill, the [employer] k Infrom II meter should not be used for Glucos e determination. Draw a venous Glucose and send to the main Lab for analysis. Valproic Acid [id number] 07:13:01 Test Item Value Reference Range Interpretation Comments Valproic Acid Level (test code 85.5 ug/mL(g) 50.0-100.0 = Valproic Acid Level) POC [id number] 06:09:14 Test Item Value Reference Range Interpretation Comments Glucose POC (test 103 mg/dL 70-115 If you con director design your code = Glucose POC) patient critically ill, the [employer]-Accu Check Infrom II meter should not be used for Glucose determination. Draw a venous Glucose and send to the main Lab for analysis. POC [id number] 19:00:15 Test Item Value Reference Range Interpretation Comments Glucose POC (test 135 mg/dL 70-115 H If you con director design your code = Glucose POC) patient critically ill, the [employer]-Accu Check Infrom II meter should not be used for Glucose determination. Draw a venous Glucose and send to the main Lab for analysis. POC [id number] 15:20:44 Test Item Value Reference Range Interpretation Comments Glucose POC (test 116 mg/dL 70-115 H If you con director design your code = Glucose POC) patient critically ill, the [employer]-Accu Check Infrom II meter should not be used for Glucose determination. Draw a venous Glucose and send to the main Lab for analysis. POC [id number] 10:51:39 Test Item Value Reference Range Interpretation Comments Glucose POC (test 103 mg/dL 70-115 Notify RN or MDIf you code = Glucose POC) consider your patient critically ill, the [employer] k Infrom II meter should not be used for Glucos e determination. Draw a venous Glucose and send to the main Lab for analysis. POC [id number] 22:21:10 Test Item Value Reference Range Interpretation Comments Glucose POC (test 123 mg/dL 70-115 H If you con director design your code = Glucose POC) patient critically ill, the Perla-Accu Check Infrom II meter should not be used for Glucose determination. Draw a venous Glucose and send to the main Lab for analysis. POC [id number] 06:32:10 Test Item Value Reference Range Interpretation Comments Glucose POC (test 114 mg/dL 70-115 If you con director design your code = Glucose POC) patient critically ill, the Per[employer]-Accu Check Infrom II meter should not be used for Glucose determination. Draw a venous Glucose and send to the main Lab for analysis. POC [id number] 19:23:39 Test Item Value Reference Range Interpretation Comments Glucose POC (test 202 mg/dL 70-115 H Notify RN or MDIf you code = Glucose POC) consider your patient critically ill, the [employer] k Infrom II meter should not be used for Glucos e determination. Draw a venous Glucose and send to the main Lab for analysis. POC [id number] 16:46:40 Test Item Value Reference Range Interpretation Comments Glucose POC (test 138 mg/dL 70-115 H Notify RN or MDIf you code = Glucose POC) consider your patient critically ill, the [employer] k Infrom II meter should not be used for Glucos e determination. Draw a venous Glucose and send to the main Lab for analysis. POC [id number] 06:46:33 Test Item Value Reference Range Interpretation Comments Glucose POC (test 100 mg/dL 70-115 If you con director design your code = Glucose POC) patient critically ill, the Per[employer]-Accu Check Infrom II meter should not be used for Glucose determination. Draw a venous Glucose and send to the main Lab for analysis. POC [id number] 19:51:30 Test Item Value Reference Range Interpretation Comments Glucose POC (test 137 mg/dL 70-115 H Notify RN or MDIf you code = Glucose POC) consider your patient critically ill, the [employer] k Infrom II meter should not be used for Glucos e determination. Draw a venous Glucose and send to the main Lab for analysis. POC [id number] 15:05:03 Test Item Value Reference Range Interpretation Comments Glucose POC (test 132 mg/dL 70-115 H If you con director design your code = Glucose POC) patient critically ill, the [employer]-Accu Check Infrom II meter should not be used for Glucose determination. Draw a venous Glucose and send to the main Lab for analysis. POC [id number] 11:12:32 Test Item Value Reference Range Interpretation Comments Glucose POC (test 125 mg/dL 70-115 H Notify RN or MDIf you code = Glucose POC) consider your patient critically ill, the [employer] k Infrom II meter should not be used for Glucos e determination. Draw a venous Glucose and send to the main Lab for analysis. POC [id number] 06:54:03 Test Item Value Reference Range Interpretation Comments Glucose POC (test 101 mg/dL 70-115 If you con director design your code = Glucose POC) patient critically ill, the Per[employer]-Accu Check Infrom II meter should not be used for Glucose determination. Draw a venous Glucose and send to the main Lab for analysis. POC [id number] 19:07:33 Test Item Value Reference Range Interpretation Comments Glucose POC (test 142 mg/dL 70-115 H If you con director design your code = Glucose POC) patient critically ill, the Per[employer]-Accu Check Infrom II meter should not be used for Glucose determination. Draw a venous Glucose and send to the main Lab for analysis. POC [id number] 06:36:27 Test Item Value Reference Range Interpretation Comments Glucose POC (test 112 mg/dL 70-115 If you con director design your code = Glucose POC) patient critically ill, the Per[employer]-Accu Check Infrom II meter should not be used for Glucose determination. Draw a venous Glucose and send to the main Lab for analysis. POC [id number] 18:54:56 Test Item Value Reference Range Interpretation Comments Glucose POC (test 176 mg/dL 70-115 H Notify RN or MDIf you code = Glucose POC) consider your patient critically ill, the [employer] k Infrom II meter should not be used for Glucos e determination. Draw a venous Glucose and send to the main Lab for analysis. POC [id number] 18:58:28 Test Item Value Reference Range Interpretation Comments Glucose POC (test 160 mg/dL 70-115 H If you con director design your code = Glucose POC) patient critically ill, the Perla-Accu Check Infrom II meter should not be used for Glucose determination. Draw a venous Glucose and send to the main Lab for analysis. POC [id number] 15:31:28 Test Item Value Reference Range Interpretation Comments Glucose POC (test 116 mg/dL 70-115 H If you con director design your code = Glucose POC) patient critically ill, the Perla-Accu Check Infrom II meter should not be used for Glucose determination. Draw a venous Glucose and send to the main Lab for analysis. POC [id number] 11:51:52 Test Item Value Reference Range Interpretation Comments Glucose POC (test 130 mg/dL 70-115 H Verify wit h LabNotify code = Glucose POC) RN or MD If you consider your patient cr itically ill, the [employer]- Accu Check Infrom II meter should not be u sed for Glucose determi nation. Draw a venous G lucose and send to the main Lab for analysi s. POC [id number] 06:32:31 Test Item Value Reference Range Interpretation Comments Glucose POC (test 135 mg/dL 70-115 H If you con director design your code = Glucose POC) patient critically ill, the Perla-Accu Check Infrom II meter should not be used for Glucose determination. Draw a venous Glucose and send to the main Lab for analysis. POC [id number] 19:41:50 Test Item Value Reference Range Interpretation Comments Glucose POC (test 117 mg/dL 70-115 H If you con director design your code = Glucose POC) patient critically ill, the Perla-Accu Check Infrom II meter should not be used for Glucose determination. Draw a venous Glucose and send to the main Lab for analysis. POC [id number] 15:01:50 Test Item Value Reference Range Interpretation Comments Glucose POC (test 158 mg/dL 70-115 H Notify RN or MDIf you code = Glucose POC) consider your patient critically ill, the [employer]-Accu Che[employer] k Infrom II meter should not be used for Glucos e determination. Draw a venous Glucose and send to the main Lab for analysis. POC [id number] 11:14:40 Test Item Value Reference Range Interpretation Comments Glucose POC (test 112 mg/dL 70-115 Notify RN or MDIf you code = Glucose POC) consider your patient critically ill, the [employer] Che[employer] k Infrom II meter should not be used for Glucos e determination. Draw a venous Glucose and send to the main Lab for analysis. POC [id number] 05:38:51 Test Item Value Reference Range Interpretation Comments Glucose POC (test 105 mg/dL 70-115 If you con director design your code = Glucose POC) patient critically ill, the Per[employer]-Accu Check Infrom II meter should not be used for Glucose determination. Draw a venous Glucose and send to the main Lab for analysis. POC [id number] 20:02:20 Test Item Value Reference Range Interpretation Comments Glucose POC (test 178 mg/dL 70-115 H Notify RN or MDIf you code = Glucose POC) consider your patient critically ill, the [employer] k Infrom II meter should not be used for Glucos e determination. Draw a venous Glucose and send to the main Lab for analysis. POC [id number] 12:10:12 Test Item Value Reference Range Interpretation Comments Glucose POC (test 115 mg/dL 70-115 If you con director design your code = Glucose POC) patient critically ill, the Perla-Accu Check Infrom II meter should not be used for Glucose determination. Draw a venous Glucose and send to the main Lab for analysis. POC [id number] 06:12:13 Test Item Value Reference Range Interpretation Comments Glucose POC (test 114 mg/dL 70-115 If you con director design your code = Glucose POC) patient critically ill, the Perla-Accu Check Infrom II meter should not be used for Glucose determination. Draw a venous Glucose and send to the main Lab for analysis. POC [id number] 19:09:49 Test Item Value Reference Range Interpretation Comments Glucose POC (test 188 mg/dL 70-115 H If you con director design your code = Glucose POC) patient critically ill, the Per[employer]-Accu Check Infrom II meter should not be used for Glucose determination. Draw a venous Glucose and send to the main Lab for analysis. POC [id number] 06:06:12 Test Item Value Reference Range Interpretation Comments Glucose POC (test 112 mg/dL 70-115 If you con director design your code = Glucose POC) patient critically ill, the Perla-Accu Check Infrom II meter should not be used for Glucose determination. Draw a venous Glucose and send to the main Lab for analysis. POC [id number] 19:34:45 Test Item Value Reference Range Interpretation Comments Glucose POC (test 166 mg/dL 70-115 H Notify RN or MDIf you code = Glucose POC) consider your patient critically ill, the [employer]-Accu Che[employer] k Infrom II meter should not be used for Glucos e determination. Draw a venous Glucose and send to the main Lab for analysis. POC [id number] 15:30:06 Test Item Value Reference Range Interpretation Comments Glucose POC (test 121 mg/dL 70-115 H If you con director design your code = Glucose POC) patient critically ill, the Perla-Accu Check Infrom II meter should not be used for Glucose determination. Draw a venous Glucose and send to the main Lab for analysis. POC [id number] 10:45:14 Test Item Value Reference Range Interpretation Comments Glucose POC (test 144 mg/dL 70-115 H If you con director design your code = Glucose POC) patient critically ill, the Per[employer]-Accu Check Infrom II meter should not be used for Glucose determination. Draw a venous Glucose and send to the main Lab for analysis. POC [id number] 06:07:42 Test Item Value Reference Range Interpretation Comments Glucose POC (test 100 mg/dL 70-115 If you con director design your code = Glucose POC) patient critically ill, the Perla-Accu Check Infrom II meter should not be used for Glucose determination. Draw a venous Glucose and send to the main Lab for analysis. POC [id number] 20:06:09 Test Item Value Reference Range Interpretation Comments Glucose POC (test 171 mg/dL 70-115 H If you con director design your code = Glucose POC) patient critically ill, the Perla-Accu Check Infrom II meter should not be used for Glucose determination. Draw a venous Glucose and send to the main Lab for analysis. POC [id number] 15:34:41 Test Item Value Reference Range Interpretation Comments Glucose POC (test 115 mg/dL 70-115 If you con director design your code = Glucose POC) patient critically ill, the Perla-Accu Check Infrom II meter should not be used for Glucose determination. Draw a venous Glucose and send to the main Lab for analysis. POC [id number] 11:53:36 Test Item Value Reference Range Interpretation Comments Glucose POC (test 169 mg/dL 70-115 H Notify RN or MDIf you code = Glucose POC) consider your patient critically ill, the [employer]-Accu Chec k Infrom II meter should not be used for Glucos e determination. Draw a venous Glucose and send to the main Lab for analysis. POC [id number] 06:02:32 Test Item Value Reference Range Interpretation Comments Glucose POC (test 107 mg/dL 70-115 Notify RN or MDIf you code = Glucose POC) consider your patient critically ill, the [employer] Che[employer] k Infrom II meter should not be used for Glucos e determination. Draw a venous Glucose and send to the main Lab for analysis. POC [id number] 20:13:55 Test Item Value Reference Range Interpretation Comments Glucose POC (test 127 mg/dL 70-115 H Notify RN or MDIf you code = Glucose POC) consider your patient critically ill, the [employer] Che[employer] k Infrom II meter should not be used for Glucos e determination. Draw a venous Glucose and send to the main Lab for analysis. POC [id number] 17:04:53 Test Item Value Reference Range Interpretation Comments Glucose POC (test 112 mg/dL 70-115 If you con director design your code = Glucose POC) patient critically ill, the [employer]-Accu Check Infrom II meter should not be used for Glucose determination. Draw a venous Glucose and send to the main Lab for analysis. POC [id number] 12:05:54 Test Item Value Reference Range Interpretation Comments Glucose POC (test 131 mg/dL 70-115 H Notify RN or MDIf you code = Glucose POC) consider your patient critically ill, the [employer] Che[employer] k Infrom II meter should not be used for Glucos e determination. Draw a venous Glucose and send to the main Lab for analysis. Valproic Acid [id number] 07:11:59 Test Item Value Reference Range Interpretation Comments Valproic Acid Level (test code 72.9 ug/mL(g) 50.0-100.0 = Valproic Acid Level) POC [id number] 12:02:29 Test Item Value Reference Range Interpretation Comments Glucose POC (test 109 mg/dL 70-115 Notify RN or MDIf you code = Glucose POC) consider your patient critically ill, the [employer] Che[employer] k Infrom II meter should not be used for Glucos e determination. Draw a venous Glucose and send to the main Lab for analysis. POC [id number] 15:05:47 Test Item Value Reference Range Interpretation Comments Glucose POC (test 126 mg/dL 70-115 H If you con director design your code = Glucose POC) patient critically ill, the [employer]-Acc[employer] Check Infrom II meter should not be used for Glucose determination. Draw a venous Glucose and send to the main Lab for analysis. RPR [id number] 11:25:48 Test Item Value Reference Range Interpretation Comments RPR Qual (test code = RPR Qual) Non-Reactive Non-Reactive Reactive Control (test code = Reactive Reactive Control) Weak Reactive Control (test Weak Reactive code = Weak Reactive Control) Non-Reactive Control (test code Non-Reactive = Non-Reactive Control) Lot # (test code = Lot #) [id number] N Expiration Dt (test code = 02-05-20 N Expiration Dt) POC [id number] 11:24:14 Test Item Value Reference Range Interpretation Comments Glucose POC (test 101 mg/dL 70-115 Notify RN or MDIf you code = Glucose POC) consider your patient critically ill, the [employer] k Infrom II meter should not be used for Glucos e determination. Draw a venous Glucose and send to the main Lab for analysis. Thyroid Stimulating [id number] 06:38:24 Test Item Value Reference Range Interpretation Comments TSH (test code = TSH) 2.100 mIU/mL 0.270-4.200 Lipid [id number] 06:38:23 Test Item Value Reference Range Interpretation Comments Cholesterol Total 127 mg/dL 0-200 RISK OF HE ART (test code = DISEASEPublishe d by Cholesterol Total) [place] [employer] Tara lyte Optimal Borderl ine Increased RiskC HOL <200 200-239 >2 40TRIG <150 150-199 >2 00HDL Male >60 <40H DL Female >60 <5 0LDL <100 130-159 >1 60LDL Near optimal is 100-129 Triglycerides (test 85 mg/dL 9-200 code = Triglycerides) HDL (test code = HDL) 34 mg/dL 40-60 L LDL (test code = LDL) 76 mg/dL 0-130 The eq uation being used in this calcula tion is LDL = (Chol - H DL) - (Trig / 5) VLDL (test code = 17 mg/dL 5-40 The equati on being used VLDL) in this calcula tion is VLDL = Trig / 5 Chol/HDL (test code = 3.7 ratio 0.0-5.0 Chol/HDL) LDL/HDL Ratio (test 2 N The equa tion being used code = LDL/HDL Ratio) in thi s calculation is LDL/HDL Ratio=L DL Calc/HDL Chol POC [id number] 21:29:14 Test Item Value Reference Range Interpretation Comments Glucose POC (test 159 mg/dL 70-115 H If you con director design your code = Glucose POC) patient critically ill, the [employer] Check Infrom II meter should not be used for Glucose determination. Draw a venous Glucose and send to the main Lab for analysis. BASIC METABOLIC [id number] 12:42:00 Test Item Value Reference Range Interpretation Comments SODIUM (test code = 140 MMOL/L 137-145 N NA) POTASSIUM (test code = 4.0 MMOL/L 3.5-5.1 N K) CHLORIDE (test code = 100 MMOL/L 98-107 N CL) CARBON DIOXIDE (test 28 MMOL/L 22-30 N code = CO2) GLUCOSE (test code = 176 MG/DL 74-106 H GLU) BLOOD UREA NITROGEN 14 MG/DL 9-20 N (test code = BUN) GLOMERULAR FILTRATION > 60 Report ing units: RATE (test code = GFR) ml/mi n/1.73 m2 (Modified MDRD Formula)Referen ce Range: > or = 6 0 ml/min/1.73 m2 CREATININE (test code 0.90 MG/DL 0.66-1.25 N = CREAT) CALCIUM (test code = 9.6 MG/DL 8.4-10.2 N CA) HEPATIC FUNCTION [id number] 12:42:00 Test Item Value Reference Range Interpretation Comments TOTAL PROTEIN (test code = PROT) 7.9 G/DL 6.2-7.6 H ALBUMIN (test code = ALB) 4.4 G/DL 3.5-5.0 N BILIRUBIN TOTAL (test code = BILT) 0.6 MG/DL 0.2-1.3 N BILIRUBIN DIRECT (test code = 0.0 MG/DL 0.0-0.3 N BILD) SGOT/AST (test code = AST) 40 UNITS/L 17-59 N SGPT/ALT (test code = ALT) 30 UNITS/L <50 ALKALINE PHOSPHATASE (test code = 88 UNITS/L 38-126 N ALKP) [id number] 12:42:00 Test Item Value Reference Range Interpretation Comments ACETAMINOPHEN (test code = < 10.0 MCG/ML 10-30 L ACET) [id number] 12:42:00 Test Item Value Reference Range Interpretation Comments SALICYLATE (test code = GANESH) < 1.0 MG/DL <2.0 [id number] 12:42:00 Test Item Value Reference Range Interpretation Comments ALCOHOL (test code = ALC) < 10.0 MG/DL <10 BASIC METABOLIC [id number] 12:41:00 Test Item Value Reference Range Interpretation Comments SODIUM (test code = 140 MMOL/L 137-145 N NA) POTASSIUM (test code = 4.0 MMOL/L 3.5-5.1 N K) CHLORIDE (test code = 100 MMOL/L 98-107 N CL) CARBON DIOXIDE (test 28 MMOL/L 22-30 N code = CO2) GLUCOSE (test code = 176 MG/DL 74-106 H GLU) BLOOD UREA NITROGEN 14 MG/DL 9-20 N (test code = BUN) GLOMERULAR FILTRATION > 60 Report ing units: RATE (test code = GFR) ml/mi n/1.73 m2 (Modified MDRD Formula)Referen ce Range: > or = 6 0 ml/min/1.73 m2 CREATININE (test code 0.90 MG/DL 0.66-1.25 N = CREAT) CALCIUM (test code = 9.6 MG/DL 8.4-10.2 N CA) HEPATIC FUNCTION [id number] 12:41:00 Test Item Value Reference Range Interpretation Comments TOTAL PROTEIN (test code = PROT) 7.9 G/DL 6.2-7.6 H ALBUMIN (test code = ALB) 4.4 G/DL 3.5-5.0 N BILIRUBIN TOTAL (test code = BILT) 0.6 MG/DL 0.2-1.3 N BILIRUBIN DIRECT (test code = 0.0 MG/DL 0.0-0.3 N BILD) SGOT/AST (test code = AST) 40 UNITS/L 17-59 N SGPT/ALT (test code = ALT) 30 UNITS/L <50 ALKALINE PHOSPHATASE (test code = 88 UNITS/L 38-126 N ALKP) [id number] 12:41:00 Test Item Value Reference Range Interpretation Comments ACETAMINOPHEN (test code = ACET) MCG/ML 10-30 [id number] 12:41:00 Test Item Value Reference Range Interpretation Comments SALICYLATE (test code = GANESH) < 1.0 MG/DL <2.0 [id number] 12:41:00 Test Item Value Reference Range Interpretation Comments ALCOHOL (test code = ALC) MG/DL <10 BASIC METABOLIC [id number] 12:41:00 Test Item Value Reference Range Interpretation Comments SODIUM (test code = 140 MMOL/L 137-145 N NA) POTASSIUM (test code = 4.0 MMOL/L 3.5-5.1 N K) CHLORIDE (test code = 100 MMOL/L 98-107 N CL) CARBON DIOXIDE (test 28 MMOL/L 22-30 N code = CO2) GLUCOSE (test code = 176 MG/DL 74-106 H GLU) BLOOD UREA NITROGEN 14 MG/DL 9-20 N (test code = BUN) GLOMERULAR FILTRATION > 60 Report ing units: RATE (test code = GFR) ml/mi n/1.73 m2 (Modified MDRD Formula)Referen ce Range: > or = 6 0 ml/min/1.73 m2 CREATININE (test code 0.90 MG/DL 0.66-1.25 N = CREAT) CALCIUM (test code = 9.6 MG/DL 8.4-10.2 N CA) HEPATIC FUNCTION [id number] 12:41:00 Test Item Value Reference Range Interpretation Comments TOTAL PROTEIN (test code = PROT) 7.9 G/DL 6.2-7.6 H ALBUMIN (test code = ALB) 4.4 G/DL 3.5-5.0 N BILIRUBIN TOTAL (test code = BILT) 0.6 MG/DL 0.2-1.3 N BILIRUBIN DIRECT (test code = 0.0 MG/DL 0.0-0.3 N BILD) SGOT/AST (test code = AST) 40 UNITS/L 17-59 N SGPT/ALT (test code = ALT) 30 UNITS/L <50 ALKALINE PHOSPHATASE (test code = 88 UNITS/L 38-126 N ALKP) [id number] 12:41:00 Test Item Value Reference Range Interpretation Comments ACETAMINOPHEN (test code = < 10.0 MCG/ML 10-30 L ACET) [id number] 12:41:00 Test Item Value Reference Range Interpretation Comments SALICYLATE (test code = GANESH) < 1.0 MG/DL <2.0 [id number] 12:41:00 Test Item Value Reference Range Interpretation Comments ALCOHOL (test code = ALC) MG/DL <10 BASIC METABOLIC [id number] 12:40:00 Test Item Value Reference Range Interpretation Comments SODIUM (test code = 140 MMOL/L 137-145 N NA) POTASSIUM (test code = 4.0 MMOL/L 3.5-5.1 N K) CHLORIDE (test code = 100 MMOL/L 98-107 N CL) CARBON DIOXIDE (test 28 MMOL/L 22-30 N code = CO2) GLUCOSE (test code = MG/DL 74-106 GLU) BLOOD UREA NITROGEN MG/DL 9-20 (test code = BUN) GLOMERULAR FILTRATION > 60 Report ing units: RATE (test code = GFR) ml/mi n/1.73 m2 (Modified MDRD Formula)Referen ce Range: > or = 6 0 ml/min/1.73 m2 CREATININE (test code 0.90 MG/DL 0.66-1.25 N = CREAT) CALCIUM (test code = MG/DL 8.7-9.7 CA) HEPATIC FUNCTION [id number] 12:40:00 Test Item Value Reference Range Interpretation Comments TOTAL PROTEIN (test code = PROT) 7.9 G/DL 6.2-7.6 H ALBUMIN (test code = ALB) 4.4 G/DL 3.5-5.0 N BILIRUBIN TOTAL (test code = BILT) 0.6 MG/DL 0.2-1.3 N BILIRUBIN DIRECT (test code = BILD) 0.0 MG/DL 0.0-0.3 N SGOT/AST (test code = AST) UNITS/L 15-37 SGPT/ALT (test code = ALT) UNITS/L <50 ALKALINE PHOSPHATASE (test code = UNITS/L 38-126 ALKP) [id number] 12:40:00 Test Item Value Reference Range Interpretation Comments ACETAMINOPHEN (test code = ACET) MCG/ML 10-30 [id number] 12:40:00 Test Item Value Reference Range Interpretation Comments SALICYLATE (test code = GANESH) MG/DL <2.0 [id number] 12:40:00 Test Item Value Reference Range Interpretation Comments ALCOHOL (test code = ALC) MG/DL <10 BASIC METABOLIC [id number] 12:38:00 Test Item Value Reference Range Interpretation Comments SODIUM (test code = NA) MMOL/L 137-145 POTASSIUM (test code = K) MMOL/L 3.5-5.1 CHLORIDE (test code = CL) 100 MMOL/L 98-107 N CARBON DIOXIDE (test code = CO2) MMOL/L 22-30 GLUCOSE (test code = GLU) MG/DL 74-106 BLOOD UREA NITROGEN (test code = MG/DL 9-20 BUN) GLOMERULAR FILTRATION RATE (test code = GFR) CREATININE (test code = CREAT) MG/DL 0.66-1.25 CALCIUM (test code = CA) MG/DL 8.7-9.7 HEPATIC FUNCTION [id number] 12:38:00 Test Item Value Reference Range Interpretation Comments TOTAL PROTEIN (test code = PROT) G/DL 6.2-7.6 ALBUMIN (test code = ALB) 4.4 G/DL 3.5-5.0 N BILIRUBIN TOTAL (test code = BILT) MG/DL 0.2-1.3 BILIRUBIN DIRECT (test code = BILD) MG/DL 0.0-0.3 SGOT/AST (test code = AST) UNITS/L 15-37 SGPT/ALT (test code = ALT) UNITS/L <50 ALKALINE PHOSPHATASE (test code = UNITS/L 38-126 ALKP) [id number] 12:38:00 Test Item Value Reference Range Interpretation Comments ACETAMINOPHEN (test code = ACET) MCG/ML 10-30 [id number] 12:38:00 Test Item Value Reference Range Interpretation Comments SALICYLATE (test code = GANESH) MG/DL <2.0 [id number] 12:38:00 Test Item Value Reference Range Interpretation Comments ALCOHOL (test code = ALC) MG/DL <10 BASIC METABOLIC [id number] 12:38:00 Test Item Value Reference Range Interpretation Comments SODIUM (test code = NA) 140 MMOL/L 137-145 N POTASSIUM (test code = K) 4.0 MMOL/L 3.5-5.1 N CHLORIDE (test code = CL) 100 MMOL/L 98-107 N CARBON DIOXIDE (test code = CO2) MMOL/L 22-30 GLUCOSE (test code = GLU) MG/DL 74-106 BLOOD UREA NITROGEN (test code = MG/DL 9-20 BUN) GLOMERULAR FILTRATION RATE (test code = GFR) CREATININE (test code = CREAT) MG/DL 0.66-1.25 CALCIUM (test code = CA) MG/DL 8.7-9.7 HEPATIC FUNCTION [id number] 12:38:00 Test Item Value Reference Range Interpretation Comments TOTAL PROTEIN (test code = PROT) G/DL 6.2-7.6 ALBUMIN (test code = ALB) 4.4 G/DL 3.5-5.0 N BILIRUBIN TOTAL (test code = BILT) MG/DL 0.2-1.3 BILIRUBIN DIRECT (test code = BILD) MG/DL 0.0-0.3 SGOT/AST (test code = AST) UNITS/L 15-37 SGPT/ALT (test code = ALT) UNITS/L <50 ALKALINE PHOSPHATASE (test code = UNITS/L 38-126 ALKP) [id number] 12:38:00 Test Item Value Reference Range Interpretation Comments ACETAMINOPHEN (test code = ACET) MCG/ML 10-30 [id number] 12:38:00 Test Item Value Reference Range Interpretation Comments SALICYLATE (test code = GANESH) MG/DL <2.0 [id number] 12:38:00 Test Item Value Reference Range Interpretation Comments ALCOHOL (test code = ALC) MG/DL <10 BASIC METABOLIC [id number] 12:37:00 Test Item Value Reference Range Interpretation Comments SODIUM (test code = NA) MMOL/L 137-145 POTASSIUM (test code = K) MMOL/L 3.5-5.1 CHLORIDE (test code = CL) MMOL/L 98-107 CARBON DIOXIDE (test code = CO2) MMOL/L 22-30 GLUCOSE (test code = GLU) MG/DL 74-106 BLOOD UREA NITROGEN (test code = BUN) MG/DL 9-20 GLOMERULAR FILTRATION RATE (test code = GFR) CREATININE (test code = CREAT) MG/DL 0.66-1.25 CALCIUM (test code = CA) MG/DL 8.7-9.7 HEPATIC FUNCTION [id number] 12:37:00 Test Item Value Reference Range Interpretation Comments TOTAL PROTEIN (test code = PROT) G/DL 6.2-7.6 ALBUMIN (test code = ALB) 4.4 G/DL 3.5-5.0 N BILIRUBIN TOTAL (test code = BILT) MG/DL 0.2-1.3 BILIRUBIN DIRECT (test code = BILD) MG/DL 0.0-0.3 SGOT/AST (test code = AST) UNITS/L 15-37 SGPT/ALT (test code = ALT) UNITS/L <50 ALKALINE PHOSPHATASE (test code = UNITS/L 38-126 ALKP) [id number] 12:37:00 Test Item Value Reference Range Interpretation Comments ACETAMINOPHEN (test code = ACET) MCG/ML 10-30 [id number] 12:37:00 Test Item Value Reference Range Interpretation Comments SALICYLATE (test code = GANESH) MG/DL <2.0 [id number] 12:37:00 Test Item Value Reference Range Interpretation Comments ALCOHOL (test code = ALC) MG/DL <10 CBC W/AUTO [id number] 12:15:00 Test Item Value Reference Range Interpretation Comments WHITE BLOOD CELL (test code = 12.0 K/MM3 3.8-9.8 H WBC) RED BLOOD CELL (test code = 5.26 M/MM3 3.95-5.67 N RBC) HEMOGLOBIN (test code = HGB) 15.7 G/DL 12.4-16.7 N HEMATOCRIT (test code = HCT) 46.9 % 35.9-49.5 N MEAN CELL VOLUME (test code = 89 fL 81.7-96.1 N MCV) MEAN CELL HGB (test code = MCH) 29.8 pg 27.6-33.2 N MEAN CELL HGB CONCETRATION 33.5 % 32.9-35.5 N (test code = MCHC) RED CELL DISTRIBUTION WIDTH 13.8 % 12.1-15.2 N (test code = RDW) PLATELET COUNT (test code = 225 K/MM3 129-368 N PLT) MEAN PLATELET VOLUME (test code 11.5 fl 7.4-10.4 H = MPV) NEUTROPHIL % (test code = NT%) 76.9 % 43-75 H IMMATURE GRANULOCYTE % (test 0.4 % 0.0-2.0 N code = IG%) LYMPHOCYTE % (test code = LY%) 16.3 % 14-44 N MONOCYTE % (test code = MO%) 5.2 % 4-13 N EOSINOPHIL % (test code = EO%) 0.7 % 0-6 N BASOPHIL % (test code = BA%) 0.5 % 0-2 N NUCLEATED RBC % (test code = 0.0 % 0-1.0 N NRBC%) NEUTROPHIL # (test code = NT#) 9.23 K/mm3 2.0-7.6 H IMMATURE GRANULOCYTE # (test 0.05 x10 3/uL 0-0.03 H code = IG#) LYMPHOCYTE # (test code = LY#) 1.95 K/mm3 1.0-3.8 N MONOCYTE # (test code = MO#) 0.62 K/mm3 0.1-0.8 N EOSINOPHIL # (test code = EO#) 0.08 K/mm3 0.0-0.2 N BASOPHIL # (test code = BA#) 0.06 K/mm3 0.0-0.2 N NUCLEATED RBC # (test code = 0.00 K/mm3 0.0-0.1 N NRBC#) URINALYSIS [id number] 11:33:00 Test Item Value Reference Range Interpretation Comments UA COLOR (test code = YELLOW YELLOW COLU) UA APPEARANCE (test code CLEAR CLEAR = APPU) UA GLUCOSE DIPSTICK (test NORMAL MG/DL NORMAL code = DGLUU) UA BILIRUBIN DIPSTICK NEGATIVE MG/DL NEGATIVE (test code = BILU) UA KETONE DIPSTICK (test 5 MG/DL NEGATIVE code = KETU) UA SPECIFIC GRAVITY (test 1.025 1.003-1.030 N code = SGU) UA BLOOD DIPSTICK (test 150 Ethan/mm3 NEGATIVE A code = OBI) UA PH DIPSTICK (test code 5.0 5.0-9.0 N = JESSI) UA PROTEIN DIPSTICK (test 15 MG/DL NEGATIVE code = PROU) UA UROBILINIOGEN DIPSTICK 1 MG/DL NORMAL A (test code = URO) UA NITRITE DIPSTICK (test NEGATIVE NEGATIVE code = PJ) UA LEUKOCYTE ESTERASE NEGATIVE /mm3 NEGATIVE DIPSTICK (test code = LEUU) UA CULTURE NEEDED? (test NO, WBC<10 Criteria Culture Chk code = UACULT) SOURCE OF URINE: VOIDEDUA [id number] 11:33:00 Test Item Value Reference Range Interpretation Comments UA RBC (test code = RBCU) 5-10 RBC/HPF 0-3 A UA WBC (test code = XWBCU) 0-3 WBC/HPF 0-5 UA EPITHELIAL CELLS (test code = RARE EPI/HPF FEW EPIU) UA BACTERIA (test code = XBACU) FEW NONE UA MUCUS (test code = MUCU) HEAVY #/LPF NONE A SOURCE OF URINE: VOIDEDDRUGS OF ABUSE SCREEN [id number] 11:33:00 Test Item Value Reference Range Interpretation Comments UR COCAINE (test code = NEGATIVE NEGATIVE Cut off Value: 300 COCAU) ng/mL UR CANNABINOIDS (THC) NEGATIVE NEGATIVE Cut of f Value: 50 (test code = CANU) ng/mL UR AMPHETAMINE (test code NEGATIVE NEGATIVE Cu t off Value: 1000 = AMPHU) ng/mL UR BARBITURATE QUAL (test NEGATIVE NEGATIVE Cu t off Value: 200 code = BARBQLU) ng/mL UR BENZODIAZEPINE (test NEGATIVE NEGATIVE Cut off Value: 200 code = BENZU) ng/mL UR OPIATES QUAL (test code NEGATIVE NEGATIVE C ut off Value: 300 = OPIAQLU) ng/mL UR PHENCYCLIDINE (PCP) NEGATIVE NEGATIVE Cut o ff Value: 25 (test code = PHENCU) ng/mL SOURCE OF URINE: VOIDEDURINALYSIS [id number] 11:32:00 Test Item Value Reference Range Interpretation Comments UA COLOR (test code = YELLOW YELLOW COLU) UA APPEARANCE (test code CLEAR CLEAR = APPU) UA GLUCOSE DIPSTICK (test NORMAL MG/DL NORMAL code = DGLUU) UA BILIRUBIN DIPSTICK NEGATIVE MG/DL NEGATIVE (test code = BILU) UA KETONE DIPSTICK (test 5 MG/DL NEGATIVE code = KETU) UA SPECIFIC GRAVITY (test 1.025 1.003-1.030 N code = SGU) UA BLOOD DIPSTICK (test 150 Ethan/mm3 NEGATIVE A code = OBI) UA PH DIPSTICK (test code 5.0 5.0-9.0 N = JESSI) UA PROTEIN DIPSTICK (test 15 MG/DL NEGATIVE code = PROU) UA UROBILINIOGEN DIPSTICK 1 MG/DL NORMAL A (test code = URO) UA NITRITE DIPSTICK (test NEGATIVE NEGATIVE code = PJ) UA LEUKOCYTE ESTERASE NEGATIVE /mm3 NEGATIVE DIPSTICK (test code = LEUU) UA CULTURE NEEDED? (test NO, WBC<10 Criteria Culture Chk code = UACULT) SOURCE OF URINE: VOIDEDUA [id number] 11:32:00 Test Item Value Reference Range Interpretation Comments UA RBC (test code = RBCU) 5-10 RBC/HPF 0-3 A UA WBC (test code = XWBCU) 0-3 WBC/HPF 0-5 UA EPITHELIAL CELLS (test code = RARE EPI/HPF FEW EPIU) UA BACTERIA (test code = XBACU) FEW NONE UA MUCUS (test code = MUCU) HEAVY #/LPF NONE A SOURCE OF URINE: VOIDEDDRUGS OF ABUSE SCREEN [id number] 11:32:00 Test Item Value Reference Range Interpretation Comments UR COCAINE (test code = NEGATIVE NEGATIVE Cut off Value: 300 COCAU) ng/mL UR CANNABINOIDS (THC) NEGATIVE NEGATIVE Cut of f Value: 50 (test code = CANU) ng/mL UR AMPHETAMINE (test code NEGATIVE NEGATIVE Cu t off Value: 1000 = AMPHU) ng/mL UR BARBITURATE QUAL (test NEGATIVE NEGATIVE Cu t off Value: 200 code = BARBQLU) ng/mL UR BENZODIAZEPINE (test NEGATIVE NEGATIVE Cut off Value: 200 code = BENZU) ng/mL UR OPIATES QUAL (test code NEGATIVE NEGATIVE C ut off Value: 300 = OPIAQLU) ng/mL UR PHENCYCLIDINE (PCP) NEGATIVE (test code = PHENCU) SOURCE OF URINE: VOIDEDURINALYSIS [id number] 11:31:00 Test Item Value Reference Range Interpretation Comments UA COLOR (test code = YELLOW YELLOW COLU) UA APPEARANCE (test code CLEAR CLEAR = APPU) UA GLUCOSE DIPSTICK (test NORMAL MG/DL NORMAL code = DGLUU) UA BILIRUBIN DIPSTICK NEGATIVE MG/DL NEGATIVE (test code = BILU) UA KETONE DIPSTICK (test 5 MG/DL NEGATIVE code = KETU) UA SPECIFIC GRAVITY (test 1.025 1.003-1.030 N code = SGU) UA BLOOD DIPSTICK (test 150 Ethan/mm3 NEGATIVE A code = OBI) UA PH DIPSTICK (test code 5.0 5.0-9.0 N = JESSI) UA PROTEIN DIPSTICK (test 15 MG/DL NEGATIVE code = PROU) UA UROBILINIOGEN DIPSTICK 1 MG/DL NORMAL A (test code = URO) UA NITRITE DIPSTICK (test NEGATIVE NEGATIVE code = PJ) UA LEUKOCYTE ESTERASE NEGATIVE /mm3 NEGATIVE DIPSTICK (test code = LEUU) UA CULTURE NEEDED? (test NO, WBC<10 Criteria Culture Chk code = UACULT) SOURCE OF URINE: VOIDEDUA [id number] 11:31:00 Test Item Value Reference Range Interpretation Comments UA RBC (test code = RBCU) 5-10 RBC/HPF 0-3 A UA WBC (test code = XWBCU) 0-3 WBC/HPF 0-5 UA EPITHELIAL CELLS (test code = RARE EPI/HPF FEW EPIU) UA BACTERIA (test code = XBACU) FEW NONE UA MUCUS (test code = MUCU) HEAVY #/LPF NONE A SOURCE OF URINE: VOIDEDDRUGS OF ABUSE SCREEN [id number] 11:31:00 Test Item Value Reference Range Interpretation Comments UR COCAINE (test code = NEGATIVE COCAU) UR CANNABINOIDS (THC) NEGATIVE NEGATIVE Cut of f Value: 50 (test code = CANU) ng/mL UR AMPHETAMINE (test code NEGATIVE NEGATIVE Cu t off Value: 1000 = AMPHU) ng/mL UR BARBITURATE QUAL (test NEGATIVE NEGATIVE Cu t off Value: 200 code = BARBQLU) ng/mL UR BENZODIAZEPINE (test NEGATIVE NEGATIVE Cut off Value: 200 code = BENZU) ng/mL UR OPIATES QUAL (test code NEGATIVE NEGATIVE C ut off Value: 300 = OPIAQLU) ng/mL UR PHENCYCLIDINE (PCP) NEGATIVE (test code = PHENCU) SOURCE OF URINE: VOIDEDURINALYSIS [id number] 11:29:00 Test Item Value Reference Range Interpretation Comments UA COLOR (test code = YELLOW YELLOW COLU) UA APPEARANCE (test code CLEAR CLEAR = APPU) UA GLUCOSE DIPSTICK (test NORMAL MG/DL NORMAL code = DGLUU) UA BILIRUBIN DIPSTICK NEGATIVE MG/DL NEGATIVE (test code = BILU) UA KETONE DIPSTICK (test 5 MG/DL NEGATIVE code = KETU) UA SPECIFIC GRAVITY (test 1.025 1.003-1.030 N code = SGU) UA BLOOD DIPSTICK (test 150 Ethan/mm3 NEGATIVE A code = OBI) UA PH DIPSTICK (test code 5.0 5.0-9.0 N = JESSI) UA PROTEIN DIPSTICK (test 15 MG/DL NEGATIVE code = PROU) UA UROBILINIOGEN DIPSTICK 1 MG/DL NORMAL A (test code = URO) UA NITRITE DIPSTICK (test NEGATIVE NEGATIVE code = PJ) UA LEUKOCYTE ESTERASE NEGATIVE /mm3 NEGATIVE DIPSTICK (test code = LEUU) UA CULTURE NEEDED? (test NO, WBC<10 Criteria Culture Chk code = UACULT) SOURCE OF URINE: VOIDEDUA [id number] 11:29:00 Test Item Value Reference Range Interpretation Comments UA RBC (test code = RBCU) 5-10 RBC/HPF 0-3 A UA WBC (test code = XWBCU) 0-3 WBC/HPF 0-5 UA EPITHELIAL CELLS (test code = RARE EPI/HPF FEW EPIU) UA BACTERIA (test code = XBACU) FEW NONE UA MUCUS (test code = MUCU) HEAVY #/LPF NONE A SOURCE OF URINE: VOIDEDDRUGS OF ABUSE SCREEN [id number] 11:29:00 Test Item Value Reference Range Interpretation Comments UR COCAINE (test code = NEGATIVE COCAU) UR CANNABINOIDS (THC) NEGATIVE (test code = CANU) UR AMPHETAMINE (test code NEGATIVE = AMPHU) UR BARBITURATE QUAL (test NEGATIVE NEGATIVE Cu t off Value: 200 code = BARBQLU) ng/mL UR BENZODIAZEPINE (test NEGATIVE code = BENZU) UR OPIATES QUAL (test code NEGATIVE = OPIAQLU) UR PHENCYCLIDINE (PCP) NEGATIVE (test code = PHENCU) SOURCE OF URINE: VOIDEDURINALYSIS [id number] 11:29:00 Test Item Value Reference Range Interpretation Comments UA COLOR (test code = YELLOW YELLOW COLU) UA APPEARANCE (test code CLEAR CLEAR = APPU) UA GLUCOSE DIPSTICK (test NORMAL MG/DL NORMAL code = DGLUU) UA BILIRUBIN DIPSTICK NEGATIVE MG/DL NEGATIVE (test code = BILU) UA KETONE DIPSTICK (test 5 MG/DL NEGATIVE code = KETU) UA SPECIFIC GRAVITY (test 1.025 1.003-1.030 N code = SGU) UA BLOOD DIPSTICK (test 150 Ethan/mm3 NEGATIVE A code = OBI) UA PH DIPSTICK (test code 5.0 5.0-9.0 N = JESSI) UA PROTEIN DIPSTICK (test 15 MG/DL NEGATIVE code = PROU) UA UROBILINIOGEN DIPSTICK 1 MG/DL NORMAL A (test code = URO) UA NITRITE DIPSTICK (test NEGATIVE NEGATIVE code = PJ) UA LEUKOCYTE ESTERASE NEGATIVE /mm3 NEGATIVE DIPSTICK (test code = LEUU) UA CULTURE NEEDED? (test NO, WBC<10 Criteria Culture Chk code = UACULT) SOURCE OF URINE: VOIDEDUA [id number] 11:29:00 Test Item Value Reference Range Interpretation Comments UA RBC (test code = RBCU) 5-10 RBC/HPF 0-3 A UA WBC (test code = XWBCU) 0-3 WBC/HPF 0-5 UA EPITHELIAL CELLS (test code = RARE EPI/HPF FEW EPIU) UA BACTERIA (test code = XBACU) FEW NONE UA MUCUS (test code = MUCU) HEAVY #/LPF NONE A SOURCE OF URINE: VOIDEDDRUGS OF ABUSE SCREEN [id number] 11:29:00 Test Item Value Reference Range Interpretation Comments UR COCAINE (test code = NEGATIVE COCAU) UR CANNABINOIDS (THC) NEGATIVE (test code = CANU) UR AMPHETAMINE (test code NEGATIVE = AMPHU) UR BARBITURATE QUAL (test NEGATIVE NEGATIVE Cu t off Value: 200 code = BARBQLU) ng/mL UR BENZODIAZEPINE (test NEGATIVE NEGATIVE Cut off Value: 200 code = BENZU) ng/mL UR OPIATES QUAL (test code NEGATIVE = OPIAQLU) UR PHENCYCLIDINE (PCP) NEGATIVE (test code = PHENCU) SOURCE OF URINE: VOIDEDURINALYSIS [id number] 11:29:00 Test Item Value Reference Range Interpretation Comments UA COLOR (test code = YELLOW YELLOW COLU) UA APPEARANCE (test code CLEAR CLEAR = APPU) UA GLUCOSE DIPSTICK (test NORMAL MG/DL NORMAL code = DGLUU) UA BILIRUBIN DIPSTICK NEGATIVE MG/DL NEGATIVE (test code = BILU) UA KETONE DIPSTICK (test 5 MG/DL NEGATIVE code = KETU) UA SPECIFIC GRAVITY (test 1.025 1.003-1.030 N code = SGU) UA BLOOD DIPSTICK (test 150 Ethan/mm3 NEGATIVE A code = OBI) UA PH DIPSTICK (test code 5.0 5.0-9.0 N = JESSI) UA PROTEIN DIPSTICK (test 15 MG/DL NEGATIVE code = PROU) UA UROBILINIOGEN DIPSTICK 1 MG/DL NORMAL A (test code = URO) UA NITRITE DIPSTICK (test NEGATIVE NEGATIVE code = PJ) UA LEUKOCYTE ESTERASE NEGATIVE /mm3 NEGATIVE DIPSTICK (test code = LEUU) UA CULTURE NEEDED? (test NO, WBC<10 Criteria Culture Chk code = UACULT) SOURCE OF URINE: VOIDEDUA [id number] 11:29:00 Test Item Value Reference Range Interpretation Comments UA RBC (test code = RBCU) 5-10 RBC/HPF 0-3 A UA WBC (test code = XWBCU) 0-3 WBC/HPF 0-5 UA EPITHELIAL CELLS (test code = RARE EPI/HPF FEW EPIU) UA BACTERIA (test code = XBACU) FEW NONE UA MUCUS (test code = MUCU) HEAVY #/LPF NONE A SOURCE OF URINE: VOIDEDDRUGS OF ABUSE SCREEN [id number] 11:29:00 Test Item Value Reference Range Interpretation Comments UR COCAINE (test code = NEGATIVE COCAU) UR CANNABINOIDS (THC) NEGATIVE (test code = CANU) UR AMPHETAMINE (test code NEGATIVE NEGATIVE Cu t off Value: 1000 = AMPHU) ng/mL UR BARBITURATE QUAL (test NEGATIVE NEGATIVE Cu t off Value: 200 code = BARBQLU) ng/mL UR BENZODIAZEPINE (test NEGATIVE NEGATIVE Cut off Value: 200 code = BENZU) ng/mL UR OPIATES QUAL (test code NEGATIVE = OPIAQLU) UR PHENCYCLIDINE (PCP) NEGATIVE (test code = PHENCU) SOURCE OF URINE: VOIDEDURINALYSIS [id number] 11:21:00 Test Item Value Reference Range Interpretation Comments UA COLOR (test code = YELLOW YELLOW COLU) UA APPEARANCE (test code CLEAR CLEAR = APPU) UA GLUCOSE DIPSTICK (test NORMAL MG/DL NORMAL code = DGLUU) UA BILIRUBIN DIPSTICK NEGATIVE MG/DL NEGATIVE (test code = BILU) UA KETONE DIPSTICK (test 5 MG/DL NEGATIVE code = KETU) UA SPECIFIC GRAVITY (test 1.025 1.003-1.030 N code = SGU) UA BLOOD DIPSTICK (test 150 Ethan/mm3 NEGATIVE A code = OBI) UA PH DIPSTICK (test code 5.0 5.0-9.0 N = JESSI) UA PROTEIN DIPSTICK (test 15 MG/DL NEGATIVE code = PROU) UA UROBILINIOGEN DIPSTICK 1 MG/DL NORMAL A (test code = URO) UA NITRITE DIPSTICK (test NEGATIVE NEGATIVE code = PJ) UA LEUKOCYTE ESTERASE NEGATIVE /mm3 NEGATIVE DIPSTICK (test code = LEUU) UA CULTURE NEEDED? (test NO, WBC<10 Criteria Culture Chk code = UACULT) SOURCE OF URINE: VOIDEDUA [id number] 11:21:00 Test Item Value Reference Range Interpretation Comments UA RBC (test code = RBCU) 5-10 RBC/HPF 0-3 A UA WBC (test code = XWBCU) 0-3 WBC/HPF 0-5 UA EPITHELIAL CELLS (test code = RARE EPI/HPF FEW EPIU) UA BACTERIA (test code = XBACU) FEW NONE UA MUCUS (test code = MUCU) HEAVY #/LPF NONE A SOURCE OF URINE: VOIDEDDRUGS OF ABUSE SCREEN [id number] 11:21:00 Test Item Value Reference Range Interpretation Comments UR COCAINE (test code = COCAU) NEGATIVE UR CANNABINOIDS (THC) (test code = NEGATIVE CANU) UR AMPHETAMINE (test code = AMPHU) NEGATIVE UR BARBITURATE QUAL (test code = NEGATIVE BARBQLU) UR BENZODIAZEPINE (test code = BENZU) NEGATIVE UR OPIATES QUAL (test code = OPIAQLU) NEGATIVE UR PHENCYCLIDINE (PCP) (test code = NEGATIVE PHENCU) SOURCE OF URINE: VOIDEDURINALYSIS [id number] 11:14:00 Test Item Value Reference Range Interpretation Comments UA COLOR (test code = COLU) YELLOW YELLOW UA APPEARANCE (test code = CLEAR CLEAR APPU) UA GLUCOSE DIPSTICK (test code NORMAL MG/DL NORMAL = DGLUU) UA BILIRUBIN DIPSTICK (test NEGATIVE MG/DL NEGATIVE code = BILU) UA KETONE DIPSTICK (test code 5 MG/DL NEGATIVE = KETU) UA SPECIFIC GRAVITY (test code 1.025 1.003-1.030 N = SGU) UA BLOOD DIPSTICK (test code = 150 Ethan/mm3 NEGATIVE A OBI) UA PH DIPSTICK (test code = 5.0 5.0-9.0 N JESSI) UA PROTEIN DIPSTICK (test code 15 MG/DL NEGATIVE = PROU) UA UROBILINIOGEN DIPSTICK 1 MG/DL NORMAL A (test code = URO) UA NITRITE DIPSTICK (test code NEGATIVE NEGATIVE = PJ) UA LEUKOCYTE ESTERASE DIPSTICK NEGATIVE /mm3 NEGATIVE (test code = LEUU) UA CULTURE NEEDED? (test code Criteria Culture Chk = UACULT) SOURCE OF URINE: VOIDEDUA [id number] 11:14:00 Test Item Value Reference Range Interpretation Comments UA RBC (test code = RBCU) RBC/HPF 0-3 UA WBC (test code = XWBCU) WBC/HPF 0-5 UA EPITHELIAL CELLS (test code = EPI/HPF FEW EPIU) UA BACTERIA (test code = XBACU) NONE SOURCE OF URINE: VOIDEDDRUGS OF ABUSE SCREEN [id number] 11:14:00 Test Item Value Reference Range Interpretation Comments UR COCAINE (test code = COCAU) NEGATIVE UR CANNABINOIDS (THC) (test code = NEGATIVE CANU) UR AMPHETAMINE (test code = AMPHU) NEGATIVE UR BARBITURATE QUAL (test code = NEGATIVE BARBQLU) UR BENZODIAZEPINE (test code = BENZU) NEGATIVE UR OPIATES QUAL (test code = OPIAQLU) NEGATIVE UR PHENCYCLIDINE (PCP) (test code = NEGATIVE PHENCU) SOURCE OF URINE: VOIDEDURINALYSIS [id number] 11:14:00 Test Item Value Reference Range Interpretation Comments UA COLOR (test code = COLU) YELLOW YELLOW UA APPEARANCE (test code = CLEAR CLEAR APPU) UA GLUCOSE DIPSTICK (test code NORMAL MG/DL NORMAL = DGLUU) UA BILIRUBIN DIPSTICK (test NEGATIVE MG/DL NEGATIVE code = BILU) UA KETONE DIPSTICK (test code 5 MG/DL NEGATIVE = KETU) UA SPECIFIC GRAVITY (test code 1.025 1.003-1.030 N = SGU) UA BLOOD DIPSTICK (test code = 150 Ethan/mm3 NEGATIVE A OBI) UA PH DIPSTICK (test code = 5.0 5.0-9.0 N JESSI) UA PROTEIN DIPSTICK (test code 15 MG/DL NEGATIVE = PROU) UA UROBILINIOGEN DIPSTICK 1 MG/DL NORMAL A (test code = URO) UA NITRITE DIPSTICK (test code NEGATIVE NEGATIVE = PJ) UA LEUKOCYTE ESTERASE DIPSTICK NEGATIVE /mm3 NEGATIVE (test code = LEUU) UA CULTURE NEEDED? (test code Criteria Culture Chk = UACULT) SOURCE OF URINE: VOIDEDUA [id number] 11:14:00 Test Item Value Reference Range Interpretation Comments UA RBC (test code = RBCU) RBC/HPF 0-3 UA WBC (test code = XWBCU) WBC/HPF 0-5 UA EPITHELIAL CELLS (test code = EPI/HPF FEW EPIU) UA BACTERIA (test code = XBACU) NONE SOURCE OF URINE: VOIDEDDRUGS OF ABUSE SCREEN [id number] 11:14:00 Test Item Value Reference Range Interpretation Comments UR COCAINE (test code = COCAU) NEGATIVE UR CANNABINOIDS (THC) (test code = NEGATIVE CANU) UR AMPHETAMINE (test code = AMPHU) NEGATIVE UR BARBITURATE QUAL (test code = NEGATIVE BARBQLU) UR BENZODIAZEPINE (test code = BENZU) NEGATIVE UR OPIATES QUAL (test code = OPIAQLU) NEGATIVE UR PHENCYCLIDINE (PCP) (test code = NEGATIVE PHENCU) SOURCE OF URINE: VOIDEDPOC [id number] 06:35:04 Test Item Value Reference Range Interpretation Comments Glucose POC (test 112 mg/dL 70-115 If you con director design your code = Glucose POC) patient critically ill, the Perla-Accu Check Infrom II meter should not be used for Glucose determination. Draw a venous Glucose and send to the main Lab for analysis. POC [id number] 06:42:53 Test Item Value Reference Range Interpretation Comments Glucose POC (test 123 mg/dL 70-115 H Notify RN or MDIf you code = Glucose POC) consider your patient critically ill, the Perla-Accu Chec k Infrom II meter should not be used for Glucos e determination. Draw a venous Glucose and send to the main Lab for analysis. POC [id number] 19:25:50 Test Item Value Reference Range Interpretation Comments Glucose POC (test 121 mg/dL 70-115 H If you con director design your code = Glucose POC) patient critically ill, the Perla-Accu Check Infrom II meter should not be used for Glucose determination. Draw a venous Glucose and send to the main Lab for analysis. POC [id number] 05:57:21 Test Item Value Reference Range Interpretation Comments Glucose POC (test 128 mg/dL 70-115 H Notify RN or MDIf you code = Glucose POC) consider your patient critically ill, the Perla-Accu Chec k Infrom II meter should not be used for Glucos e determination. Draw a venous Glucose and send to the main Lab for analysis. Valproic Acid [id number] 01:53:35 Test Item Value Reference Range Interpretation Comments Valproic Acid Level (test code 81.1 ug/mL(g) 50.0-100.0 = Valproic Acid Level) POC [id number] 05:52:50 Test Item Value Reference Range Interpretation Comments Glucose POC (test 98 mg/dL 70-115 If you con director design your code = Glucose POC) patient critically ill, the Perla-Accu Check Infrom II meter should not be used for Glucose determination. Draw a venous Glucose and send to the main Lab for analysis. POC [id number] 05:42:50 Test Item Value Reference Range Interpretation Comments Glucose POC (test 106 mg/dL 70-115 Notify RN or MDIf you code = Glucose POC) consider your patient critically ill, the Perla-Accu Chec k Infrom II meter should not be used for Glucos e determination. Draw a venous Glucose and send to the main Lab for analysis. POC [id number] 05:49:15 Test Item Value Reference Range Interpretation Comments Glucose POC (test 119 mg/dL 70-115 H Notify RN or MDIf you code = Glucose POC) consider your patient critically ill, the Perla-Accu Chec k Infrom II meter should not be used for Glucos e determination. Draw a venous Glucose and send to the main Lab for analysis. POC [id number] 15:19:46 Test Item Value Reference Range Interpretation Comments Glucose POC (test 136 mg/dL 70-115 H Notify RN or MDIf you code = Glucose POC) consider your patient critically ill, the Perla-Accu Chec k Infrom II meter should not be used for Glucos e determination. Draw a venous Glucose and send to the main Lab for analysis. POC [id number] 11:16:17 Test Item Value Reference Range Interpretation Comments Glucose POC (test 99 mg/dL 70-115 Notify RN or MDIf you code = Glucose POC) consider your patient critically ill, the Perla-Accu Chec k Infrom II meter should not be used for Glucos e determination. Draw a venous Glucose and send to the main Lab for analysis. POC [id number] 05:51:17 Test Item Value Reference Range Interpretation Comments Glucose POC (test 109 mg/dL 70-115 Notify RN or MDIf you code = Glucose POC) consider your patient critically ill, the Perla-Accu Chec k Infrom II meter should not be used for Glucos e determination. Draw a venous Glucose and send to the main Lab for analysis. POC [id number] 16:13:08 Test Item Value Reference Range Interpretation Comments Glucose POC (test 138 mg/dL 70-115 H Notify RN or MDIf you code = Glucose POC) consider your patient critically ill, the Perla-Accu Chec k Infrom II meter should not be used for Glucos e determination. Draw a venous Glucose and send to the main Lab for analysis. POC [id number] 11:46:45 Test Item Value Reference Range Interpretation Comments Glucose POC (test 112 mg/dL 70-115 If you con director design your code = Glucose POC) patient critically ill, the Perla-Accu Check Infrom II meter should not be used for Glucose determination. Draw a venous Glucose and send to the main Lab for analysis. Valproic Acid [id number] 08:08:06 Test Item Value Reference Range Interpretation Comments Valproic Acid Level (test code 56.5 ug/mL(g) 50.0-100.0 = Valproic Acid Level) POC [id number] 06:09:13 Test Item Value Reference Range Interpretation Comments Glucose POC (test 112 mg/dL 70-115 Notify RN or MDIf you code = Glucose POC) consider your patient critically ill, the Perla-Accu Chec k Infrom II meter should not be used for Glucos e determination. Draw a venous Glucose and send to the main Lab for analysis. POC [id number] 16:34:11 Test Item Value Reference Range Interpretation Comments Glucose POC (test 108 mg/dL 70-115 If you con director design your code = Glucose POC) patient critically ill, the Perla-Accu Check Infrom II meter should not be used for Glucose determination. Draw a venous Glucose and send to the main Lab for analysis. RPR [id number] 16:42:34 Test Item Value Reference Range Interpretation Comments RPR Qual (test code = RPR Qual) Non-Reactive Non-Reactive Reactive Control (test code = Reactive Reactive Control) Weak Reactive Control (test Weak Reactive code = Weak Reactive Control) Non-Reactive Control (test code Non-Reactive = Non-Reactive Control) Lot # (test code = Lot #) [id number] N Expiration Dt (test code = 02-05-2020 N Expiration Dt) Thyroid Stimulating [id number] 08:04:50 Test Item Value Reference Range Interpretation Comments TSH (test code = TSH) 2.640 mIU/mL 0.270-4.200 Hemoglobin [id number] 08:00:58 Test Item Value Reference Range Interpretation Comments Hemoglobin A1c (test code 5.4 % 4.8-5.9 No n Diabetic = Hemoglobin A1c) 4.8-5.9%Di abetic <7.0% Lipid [id number] 07:55:33 Test Item Value Reference Range Interpretation Comments Cholesterol Total 165 mg/dL 0-200 RISK OF HE ART (test code = DISEASEPublishe d by Cholesterol Total) [place] [employer] Tara lyte Optimal Borderl ine Increased RiskC HOL <200 200-239 >2 40TRIG <150 150-199 >2 00HDL Male >60 <40H DL Female >60 <5 0LDL <100 130-159 >1 60LDL Near optimal is 100-129 Triglycerides (test 94 mg/dL 9-200 code = Triglycerides) HDL (test code = HDL) 43 mg/dL 40-60 LDL (test code = LDL) 103 mg/dL 0-130 The eq uation being used in this calcula tion is LDL = (Chol - H DL) - (Trig / 5) VLDL (test code = 19 mg/dL 5-40 The equati on being used VLDL) in this calcula tion is VLDL = Trig / 5 Chol/HDL (test code = 3.8 ratio 0.0-5.0 Chol/HDL) LDL/HDL Ratio (test 2 N The equa tion being used code = LDL/HDL Ratio) in thi s calculation is LDL/HDL Ratio=L DL Calc/HDL Chol POC [id number] 06:45:35 Test Item Value Reference Range Interpretation Comments Glucose POC (test 122 mg/dL 70-115 H Notify RN or MDIf you code = Glucose POC) consider your patient critically ill, the Perla-Accu Chec k Infrom II meter should not be used for Glucos e determination. Draw a venous Glucose and send to the main Lab for analysis. BASIC METABOLIC [id number] 20:07:00 Test Item Value Reference Range Interpretation Comments SODIUM (test code = 138 mmol/L 137-145 N NA) POTASSIUM (test code 4.1 mmol/L 3.4-5.0 N = K) CHLORIDE (test code = 101 mmol/L 98-107 N CL) CARBON DIOXIDE (test 28 mmol/L 22-30 N code = CO2) GLUCOSE (test code = 134 mg/dL 74-106 H GLU) BLOOD UREA NITROGEN 23 mg/dL 9-20 H (test code = BUN) GLOMERULAR FILTRATION 87 >60 The es timated RATE (test code = glomerular filtration GFR) rate is compute d usingpatient ra ce, age (>18), sex, and serum creatinine. If anyof the needed data elements are mi ssing the Laboratory cannot compute an zaria mation of the glomerul ar filtration rate . CREATININE (test code 1.0 mg/dL 0.7-1.3 N = CREAT) CALCIUM (test code = 9.3 mg/dL 8.4-10.2 N CA) LIVER FUNCTION [id number] 20:07:00 Test Item Value Reference Range Interpretation Comments TOTAL PROTEIN (test 7.6 g/dL 6.3-8.2 N code = PROT) ALBUMIN (test code = 4.0 g/dL 3.5-5.0 N ALB) BILIRUBIN TOTAL (test 0.4 mg/dL 0.2-1.3 N code = BILT) BILIRUBIN CONJUGATED 0 mg/dL 0-0.3 N ~~~~~~~ ~~~~~~~~~~~~~~ (test code = BILCON) ~~~~~~~ ~~~~~~~~~~~~~~ ~~~~~~~~~~~~~~~ ~~~CON JUGATED BILIRUB IN IS THE REPLACEMENT ASSAY FOR DIRECTBILIRUBIN .~~~~~ ~~~~~~~~~~~~~~~ ~~~~~~ ~~~~~~~~~~~~~~~ ~~~~~~ ~~~~~~~~~~~~~ BILIRUBIN UNCONJUGATED 0 mg/dL 0-1.1 N (test code = BILUNC) SGOT/AST (test code = 25 U/L 15-46 N AST) SGPT/ALT (test code = < 13 U/L 13-69 L ALT) ALKALINE PHOSPHATASE 52 U/L 38-126 N (test code = ALKP) [id number] 20:07:00 Test Item Value Reference Range Interpretation Comments ALCOHOL (test code = < 10 mg/dL <10 ALC) ~~~~~~~~~~~~~~~ ~~~~~~~ ~~~~~~~~~~~~~~~ ~~~~~~~ ~~~~~~ RESU LTS ARE TO BE USED FOR MEDICAL PURPOSES ONLY.F OR LEGAL PURPOSES THE SPECIMEN MUST B E COLLECTED BY A CHAINOF CUSTODY. LEGAL TESTING IS NOT PERFORME D BY THIS FACILITY. ~~~~~~~~~~~~~~~ ~~~~~~~ ~~~~~~~~~~~~~~~ ~~~~~~~ ~~~~~~ CBC W/AUTO [id number] 19:44:00 Test Item Value Reference Range Interpretation Comments WHITE BLOOD CELL (test code = 12.9 x10 3/uL 5.0-12.0 H WBC) RED BLOOD CELL (test code = 4.51 x10 6/uL 4.70-6.10 L RBC) HEMOGLOBIN (test code = HGB) 13.8 g/dL 14.0-18.0 L HEMATOCRIT (test code = HCT) 40.9 % 37.0-49.0 N MEAN CELL VOLUME (test code = 91 fL 80-94 N MCV) MEAN CELL HGB (test code = MCH) 30.6 pg 27-31 N MEAN CELL HGB CONCENTRATION 33.7 g/dL 33-37 N (test code = MCHC) RED CELL DISTRIBUTION WIDTH 14.1 % 11.5-15.5 N (test code = RDW) PLATELET COUNT (test code = 186 x10 3/uL 130-400 N PLT) MEAN PLATELET VOLUME (test code 12.1 fL 9.4-16.4 N = MPV) NEUTROPHIL % (test code = NT%) 65.7 % 43-65 H IMMATURE GRANULOCYTE % (test 0.3 % 0.0-2.0 N code = IG%) LYMPHOCYTE % (test code = LY%) 24.7 % 20.5-45.5 N MONOCYTE % (test code = MO%) 7.2 % 5.5-11.7 N EOSINOPHIL % (test code = EO%) 1.3 % 0.9-2.9 N BASOPHIL % (test code = BA%) 0.8 % 0.2-1.0 N NUCLEATED RBC % (test code = 0.0 % 0-1.0 N NRBC%) NEUTROPHIL # (test code = NT#) 8.49 x10 3/uL 2.2-4.8 H IMMATURE GRANULOCYTE # (test 0.04 x10 3/uL 0-0.03 H code = IG#) LYMPHOCYTE # (test code = LY#) 3.19 x10 3/uL 1.3-2.9 H MONOCYTE # (test code = MO#) 0.93 x10 3/uL 0.3-0.8 H EOSINOPHIL # (test code = EO#) 0.17 x10 3/uL 0.0-0.2 N BASOPHIL # (test code = BA#) 0.10 x10 3/uL 0.0-0.1 N POC ARTERIAL BLOOD [id number] 21:27:00 Test Item Value Reference Range Interpretation Comments POC ARTERIAL BLOOD GAS PH 7.344 7.35-7.45 L (test code = POCPHA) POC ARTERIAL BLOOD GAS PCO2 55.7 mmHg 35-45 HH (test code = [id number]) POC ARTERIAL BLOOD GAS PO2 72 mmHg 80-90 L (test code = [id number]) POC HCO3 ARTERIAL (test code = 30.3 mmol/L 22.0-24.0 H [id number]) POC BASE EXCESS (test code = 5 mmol/L -2.0-2.0 H POCBEA) POC O2 SATURATION (test code = 93 % 95-98 L POCO2S) ABG DELIVERY (test code = Room Air DR MAGI TOWNSEND) ABG SITE (test code = SITEA) R Emeterio PHAM TEST (test code = Pass [facility]) - CT HEAD/BRAIN W/O [id number] 20:21:00 Kinder: St: REG Name: RAYNA ULLOA [facility] : 1975 Age/S: 43/M [address] Unit: [id number] Loc: [place] [address] Phys: Mindy Deleon MD Acct: [id number] Dis Date: Status: REG ER PHONE #: [phone] Exam Date: 09/10/20182002 FAX #: [phone] Reason: AMS EXAMS: CPT CODE: [id number] CT HEAD/BRAIN W/O CONT [id number] Examination: Noncontrast head CT Indication: Altered mental status Comparison: None available Location: [id number]: Multiple CT images of the brain were obtained from the skull base to the vertex. No intravenous contrast was administered. One or more of the following dose reduction techniqueswere used: Automated exposure control, adjustment of the mA and/or kV according to patient size, and/or utilization of iterative reconstruction technique. Findings: There is prominence of the ventricles and sulci consistent with mild supratentorial cerebral volume loss. The basilar cisterns are patent. There is no intracranial hemorrhage or mass effect. No intra-axial or extra-axial fluid collections are seen. There are diffuse periventricular and subcortical white matter hypodensities which are nonspecific, but likely the sequelae of chronic microvascular ischemia. This appearance makes evaluation for underlying acute infarct difficult. Prominent posterior circulationconstipation is noted The visualized paranasal sinuses and mastoid air cells are clear. Impression: 1. No acute intracranial hemorrhage or significant mass effect 2. Additional findings as above PAGE 1 Signed Report (CONTINUED) Kinder: St: REG -- Name: RAYNA ULLOA [facility] : 1975 Age/S:43/M [address] Unit: [id number] Loc: [place] [address] Phys: Mindy Deleon MD Acct: [id number] Dis Date: Status: REG ER PHONE #: [phone] Exam Date: 09/10/20182002 FAX #: [phone] Reason: AMS EXAMS: CPT CODE: [id number] CT HEAD/BRAIN W/O CONT [id number] <Continued> at 2020 Reported and signed by: Ivy Lynch MD CC: Technologist: Dalia Peraza Trnscrd Dt/Tm: 09/10/2018 (2020) [email or web address] Orig Print D/T: S: 09/10/2018 (4 PAGE 2 Signed ReportDRUGS OF ABUSE [id number] 18:56:00 Test Item Value Reference Range Interpretation Comments TRICYCLICS QL SQN (test NEGATIVE NEG TEST PERFORMED code = TRIUR) MANUALLY USING [place] RAPIDTEST TCA.C UTOFF >/= 1000 NG/ML A Positive drug s creen result provides only a "PreliminaryPos itive" test result.If a confirmation of positive result is necessary, a morespecific confirmatory te st must be ordered by the physician. Drug screens are per formed for medical (i. e. treatment)purpo ses only. Unconfirm ed screening resul ts must not beused for non-medical pur poses (e.g employment testing). UR COCAINE (test code = NEGATIVE NEGATIVE CUTO FF >/= 300 NG/ML COCAU) UR THC CANABINOIDS QL NEGATIVE NEGATIVE CUTOFF >/= 20 NG/ML SQN (test code = CANU) UR AMPHETAMINE QL SQN NEGATIVE NEGATIVE CUTOFF >/= 500 NG/ML (test code = AMPHU) UR BARBITURATE QUAL NEGATIVE NEGATIVE CUTOFF >/= 200 NG/ML (test code = BARBQLU) UR BENZODIAZEPINE (test NEGATIVE NEGATIVE CUTO FF >/= 200 NG/ML code = BENZU) UR OPIATES QUAL (test NEGATIVE NEGATIVE CUTOFF >/= 2000 NG/ML code = OPIAQLU) UR PHENCYCLIDINE (PCP) NEGATIVE NEGATIVE CUTOF F >/= 25 NG/ML (test code = PHENCU) DRUGS OF ABUSE [id number] 18:45:00 Test Item Value Reference Range Interpretation Comments TRICYCLICS QL SQN (test NEGATIVE NEG TEST PERFORMED code = TRIUR) MANUALLY USING [place] RAPIDTEST TCA.C UTOFF >/= 1000 NG/ML A Positive drug s creen result provides only a "PreliminaryPos itive" test result.If a confirmation of positive result is necessary, a morespecific confirmatory te st must be ordered by the physician. Drug screens are per formed for medical (i. e. treatment)purpo ses only. Unconfirm ed screening resul ts must not beused for non-medical pur poses (e.g employment testing). UR COCAINE (test code = NEGATIVE COCAU) UR THC CANABINOIDS QL NEGATIVE SQN (test code = CANU) UR AMPHETAMINE QL SQN NEGATIVE (test code = AMPHU) UR BARBITURATE QUAL NEGATIVE (test code = BARBQLU) UR BENZODIAZEPINE (test NEGATIVE code = BENZU) UR OPIATES QUAL (test NEGATIVE code = OPIAQLU) UR PHENCYCLIDINE (PCP) NEGATIVE (test code = PHENCU) BASIC METABOLIC [id number] 18:45:00 Test Item Value Reference Range Interpretation Comments SODIUM (test code = 139 mmol/L 137-145 N NA) POTASSIUM (test code 4.2 mmol/L 3.4-5.0 N = K) CHLORIDE (test code = 101 mmol/L 98-107 N CL) CARBON DIOXIDE (test 32 mmol/L 22-30 H code = CO2) GLUCOSE (test code = 127 mg/dL 74-106 H GLU) BLOOD UREA NITROGEN 24 mg/dL 9-20 H (test code = BUN) GLOMERULAR FILTRATION 87 >60 The es timated RATE (test code = glomerular filtration GFR) rate is compute d usingpatient ra ce, age (>18), sex, and serum creatinine. If anyof the needed data elements are mi ssing the Laboratory cannot compute an zaria mation of the glomerul ar filtration rate . CREATININE (test code 1.0 mg/dL 0.7-1.3 N = CREAT) CALCIUM (test code = 9.3 mg/dL 8.4-10.2 N CA) LIVER FUNCTION [id number] 18:45:00 Test Item Value Reference Range Interpretation Comments TOTAL PROTEIN (test 6.9 g/dL 6.3-8.2 N code = PROT) ALBUMIN (test code = 3.7 g/dL 3.5-5.0 N ALB) BILIRUBIN TOTAL (test 0.3 mg/dL 0.2-1.3 N code = BILT) BILIRUBIN CONJUGATED 0 mg/dL 0-0.3 N ~~~~~~~ ~~~~~~~~~~~~~~ (test code = BILCON) ~~~~~~~ ~~~~~~~~~~~~~~ ~~~~~~~~~~~~~~~ ~~~CON JUGATED BILIRUB IN IS THE REPLACEMENT ASSAY FOR DIRECTBILIRUBIN .~~~~~ ~~~~~~~~~~~~~~~ ~~~~~~ ~~~~~~~~~~~~~~~ ~~~~~~ ~~~~~~~~~~~~~ BILIRUBIN UNCONJUGATED 0 mg/dL 0-1.1 N (test code = BILUNC) SGOT/AST (test code = 15 U/L 15-46 N AST) SGPT/ALT (test code = < 13 U/L 13-69 L ALT) ALKALINE PHOSPHATASE 46 U/L 38-126 N (test code = ALKP) [id number] 18:45:00 Test Item Value Reference Range Interpretation Comments ACETAMINOPHEN (test code = ACET) <10 ug/mL 10-30 L [id number] 18:45:00 Test Item Value Reference Range Interpretation Comments SALICYLATE (test code < 1.0 mg/dL Negati ve <2.0 = GANESH) mg/dLTherapeuti c Range <20 mg/dL [id number] 18:45:00 Test Item Value Reference Range Interpretation Comments ALCOHOL (test code = < 10 mg/dL <10 ALC) ~~~~~~~~~~~~~~~ ~~~~~~~ ~~~~~~~~~~~~~~~ ~~~~~~~ ~~~~~~ RESU LTS ARE TO BE USED FOR MEDICAL PURPOSES ONLY.F OR LEGAL PURPOSES THE SPECIMEN MUST B E COLLECTED BY A CHAINOF CUSTODY. LEGAL TESTING IS NOT PERFORME D BY THIS FACILITY. ~~~~~~~~~~~~~~~ ~~~~~~~ ~~~~~~~~~~~~~~~ ~~~~~~~ ~~~~~~ UA RFLX MICR CULT IF [id number] 18:42:00 Test Item Value Reference Range Interpretation Comments UA COLOR (test code = Yellow Yellow COLU) UA APPEARANCE (test Slightly-Cloudy Clear code = APPU) UA GLUCOSE DIPSTICK Negative Negative (test code = DGLUU) UA BILIRUBIN DIPSTICK Negative Negative (test code = BILU) UA KETONE DIPSTICK Trace mg/dL Negative A (test code = KETU) UA SPECIFIC GRAVITY 1.023 <1.030 (test code = SGU) UA BLOOD DIPSTICK 3+ Negative A (test code = BOI) UA PH DIPSTICK (test 6.0 5.0-8.0 code = JESSI) UA PROTEIN DIPSTICK NEGATIVE mg/dL Negative (test code = PROU) UA UROBILINOGEN 4.0 mg/dL Negative A DIPSTICK (test code = URO) UA NITRITE DIPSTICK Negative Negative (test code = PJ) UA LEUKOCYTE ESTERASE NEGATIVE Negative DIPSTICK (test code = LEUU) UA WBC (test code = 0-3 /HPF <4-5 <10 WBC/ HPF = WBCUR) PYURIA ABSENT URINE CULTURE NOT INDICATED UA RBC (test code = 41-50 /HPF <4-5 A RBCU) UA BACTERIA (test NONE SEEN /HPF None-Rare code = BACU) UA SQUAMOUS CELLS 0-5 (RARE) /HPF 0-5 (RARE) (test code = SQU) UA MUCUS (test code = Rare /LPF <Rare MUCU) less than 18 yrs old, neutropenic, or urological surgery? NOPrimary Indication for Culture: OtherOther Indication: ED PATIENTCBC W/AUTO [id number] 18:30:00 Test Item Value Reference Range Interpretation Comments WHITE BLOOD CELL (test code = 10.6 x10 3/uL 5.0-12.0 N WBC) RED BLOOD CELL (test code = 4.31 x10 6/uL 4.70-6.10 L RBC) HEMOGLOBIN (test code = HGB) 13.2 g/dL 14.0-18.0 L HEMATOCRIT (test code = HCT) 38.9 % 37.0-49.0 N MEAN CELL VOLUME (test code = 90 fL 80-94 N MCV) MEAN CELL HGB (test code = MCH) 30.6 pg 27-31 N MEAN CELL HGB CONCENTRATION 33.9 g/dL 33-37 N (test code = MCHC) RED CELL DISTRIBUTION WIDTH 14.0 % 11.5-15.5 N (test code = RDW) PLATELET COUNT (test code = 190 x10 3/uL 130-400 N PLT) MEAN PLATELET VOLUME (test code 11.7 fL 9.4-16.4 N = MPV) NEUTROPHIL % (test code = NT%) 63.7 % 43-65 N IMMATURE GRANULOCYTE % (test 0.3 % 0.0-2.0 N code = IG%) LYMPHOCYTE % (test code = LY%) 26.1 % 20.5-45.5 N MONOCYTE % (test code = MO%) 7.2 % 5.5-11.7 N EOSINOPHIL % (test code = EO%) 2.0 % 0.9-2.9 N BASOPHIL % (test code = BA%) 0.7 % 0.2-1.0 N NUCLEATED RBC % (test code = 0.0 % 0-1.0 N NRBC%) NEUTROPHIL # (test code = NT#) 6.78 x10 3/uL 2.2-4.8 H IMMATURE GRANULOCYTE # (test 0.03 x10 3/uL 0-0.03 N code = IG#) LYMPHOCYTE # (test code = LY#) 2.77 x10 3/uL 1.3-2.9 N MONOCYTE # (test code = MO#) 0.76 x10 3/uL 0.3-0.8 N EOSINOPHIL # (test code = EO#) 0.21 x10 3/uL 0.0-0.2 H BASOPHIL # (test code = BA#) 0.07 x10 3/uL 0.0-0.1 N XR Mandible Complete 4+ [id number] 17:45:56Patient: RAYNA ULLOA Date/Time08/24/2017 17:15 CDTReason for Examto rule out fracture;InjuryReportMandible, 5 viewsHistory: PainComparison: NoneLocation R 16Findings:Asymmetric prominence of the right mandibular condyle. No definite acute fracture. The soft tissues are unremarkable. The paranasal sinuses are clear.Impression:No definite acute fracture. Asymmetric prominence of the right mandibular condyle is suggestive of a healed fracture. Consider a CT face if clinically indicated.. Final Dictated by: MD Costa Roman PDictated DT/TM: 08/24/2017 5:44 pmSigned by: MD Costa Roman PSigned (Electronic Signature): 08/24/2017 5:45 pmValproic Acid (Depakote),[id number] 08:19:00 Test Item Value Reference Range Interpretation Comments Valproic Acid (test code = VALP) 74.6 ug/mL 50.0-100.0 N Valproic Acid (Depakote),[id number] 11:01:00 Test Item Value Reference Range Interpretation Comments Valproic Acid (test code = VALP) 46.8 ug/mL 50.0-100.0 L Urinalysis [id number] 15:02:00 Test Item Value Reference Range Interpretation Comments Color (test code = COLOR) Yellow Yellow,Straw,Pl N yellow Clarity (test code = Clear Clear N CLAR) Specific [place] (test 1.020 1.001-1.035 N code = SPGR) pH (test code = PH) 6.5 5.0-9.0 N Ketone (test code = KET) 5 mg/dL Negative A Glucose (test code = Negative mg/dL Negative N GLUCUR) Protein (test code = Negative mg/dL Negative N PROT) Bilirubin (test code = Negative mg/dL Negative N BILI) Occult Blood (test code = Negative Negative N UDOB) Urobilinogen (test code = 8.0 mg/dL 0.2-1.0 H UROB) Nitrite (test code = NIT) Negative Negative N Leuk Esterase (test code Small Negative A = LEUK) Micros Exam (test code = Indicated MEXAM) Epithelial Cells (test 0-2 /LPF 0-30 A code = EPI) WBC, Urine (test code = 0-5 /HPF 0-5 N UWBC) RBC, Urine (test code = 0-3 /HPF 0-5 A URBC) Mucous, Urine (test code Trace /HPF = UMUC) Bacteria (test code = Few /HPF BACT) Valproic Acid (Depakote),[id number] 14:11:00 Test Item Value Reference Range Interpretation Comments Valproic Acid (test code = VALP) 24.3 ug/mL 50.0-100.0 L RPR, [id number] 04:22:00 Test Item Value Reference Range Interpretation Comments RPR (test code = RPR) Non-Reactive Non-Reactive N Thyroid Stimulating Hormone (TSH)2017-02-07 19:54:00 Test Item Value Reference Range Interpretation Comments TSH (test code = TSH) 1.67 mIU/mL 0.270-4.200 N Lipid [id number] 19:48:00 Test Item Value Reference Range Interpretation Comments Cholesterol (test 188 mg/dL 0-200 N code = CHOL) Triglycerides (test 193 mg/dL 9-200 N code = TRIG) HDL (test code = 33 mg/dL 40-60 L HDL) Chol/HDL (test code 5.7 Ratio 0.0-5.0 H = CHOLPHDL) LDL, Calculated 116 0-130 N (NOTE)RISK O F HEART (test code = LDLC) DISEASEPu blished by [place] Heart AssociationAnal yte Optim al Boderline Increased RiskC HOL <200 200-239 >240TRI G <150 150-199 >200HDL Male: >60 <40HDL Female: >60 <50 LDL < 100 130-15 9 >160 LDL NEAR OPTIMAL IS 100- 129 VLDL (test code = 39 mg/dL 5-40 N VLDL) LDL/HDL (test code = 4 LDLPHDL) Urinalysis [id number] 14:49:00 Test Item Value Reference Range Interpretation Comments Color (test code = Rimma Yellow,Straw,Pl A COLOR) yellow Clarity (test code = Clear Clear N CLAR) Specific [place] (test 1.024 1.001-1.035 N code = SPGR) pH (test code = PH) 7.0 5.0-9.0 N Ketone (test code = 15 mg/dL Negative A KET) Glucose (test code = Negative mg/dL Negative N GLUCUR) Protein (test code = 25 mg/dL Negative A PROT) Bilirubin (test code = See IctoTest mg/dL Negative A BILI) Occult Blood (test code Negative Negative N = UDOB) Urobilinogen (test code 12.0 mg/dL 0.2-1.0 H = UROB) Nitrite (test code = Negative Negative N NIT) Leuk Esterase (test Small Negative A code = LEUK) Ictotest (test code = Confirmed Negative Negative,Confirmed N ICTOTEST) Negative Micros Exam (test code Indicated = MEXAM) Epithelial Cells (test 3-5 /LPF 0-30 A code = EPI) WBC, Urine (test code = 0-5 /HPF 0-5 N UWBC) RBC, Urine (test code = 0-3 /HPF 0-5 A URBC) Bacteria (test code = None /HPF BACT) Comprehensive Metabolic [id number] 13:47:00 Test Item Value Reference Range Interpretation Comments Sodium (test code = 136 mmol/L 135-145 N NA) Potassium (test 4.4 mmol/L 3.5-5.1 N code = K) Chloride (test code 97 mmol/L 98-105 L = CL) Carbon Dioxide 29 mmol/L 22-29 N (test code = CO2) Glucose (test code 109 mg/dL 70-115 N = GLU) Blood Urea Nitrogen 13 mg/dL 6-20 N (test code = BUN) Creatinine (test 0.9 mg/dL 0.7-1.2 N code = CREAT) Calcium (test code 8.7 mg/dL 8.3-10.5 N = CA) Prot Total (test 6.5 g/dL 6.4-8.3 N code = TP) Albumin (test code 3.5 g/dL 3.5-5.2 N = ALB) A/G Ratio (test 1.2 Ratio code = AGRATIO) Globulin (test code 3.0 2.9-3.1 N = GLOB) Bili Total (test 0.3 mg/dL 0.1-0.9 N code = TBIL) Alk Phos (test code 58 U/L 40-129 N = APHOS) AST (test code = 14 U/L 1-40 N AST) ALT (test code = 15 U/L 1-41 N ALT) BUN/Creatinine 14.4 Ratio (test code = BCRATIO) Anion Gap (test 10 mmol/L 7-16 N code = AGAP) Estimated GFR (test >60 eGFR (es timated code = GFR) mL/min/1.73m2 Glomerular Florentino tration Rate) is an est imated value,calculate d from the patient's s parminder creatinine usin g the MDRD equation.I t is NOT the patient 's actual GFR. The eGFR provides a more clinicallyusefu l measure of kidn ey disease than se rum creatinine alone.This calculation annabella es sex and race into account, if the informationis provided. If th e race is not provided , and the patient isAfrican-Ameri can, multiply by 1.2 12. If sex is not prov ided, and thepatient is female, multipl y by 0.742. Results for patients <18 ye ars ofage have not been validated by th e MDRD study and shoul d be interpretedwith caution.eGFR Re sult Interpretation: eGFR > or = 60 is in t he Normal RangeeGF R < 60 may mean kidney diseaseeGFR < 1 5 may mean kidney failureRange s recommended by the National Kidney Foundation,http ://nkd ep.nih.gov Alcohol/Ethanol, [id number] 13:47:00 Test Item Value Reference Range Interpretation Comments Alcohol, Ethyl <0.01 g/dL 0.00-0.01 N Intoxicated 0.080 (test code = ETOH) g/dL or m ore [id number] 13:38:00 Test Item Value Reference Range Interpretation Comments Amphetamine (test code Negative Negative N For d iagnostic purposes = AMPH) only, positive results should always b e assessedin conjunctionwith the patient's medic al history,clinica l examination and otherfindings.T o fulfill legal requirements, a more specific altern ate chemical method must be used inorder to obtain a Confirmed tara lytical result. GC/MS i s the preferred confi rmatory method. Barbiturates (test Negative Negative N code = JOSÉ MIGUEL) Benzodiazepine (test Negative Negative N code = TATE) Cocaine (test code = Negative Negative N COCA) Methadone (test code = Negative Negative N MTHD) Opiates (test code = Negative Negative N OPIA) PCP (test code = PCP) Negative Negative N Propoxyphene (test Negative Negative N code = PROPOX) THC (test code = THC) Negative Negative N CBC with [id number] 13:29:00 Test Item Value Reference Range Interpretation Comments WBC (test code = WBC) 7.9 K/cumm 4.4-10.5 N RBC (test code = RBC) 4.67 M/cumm 4.10-5.70 N Hemoglobin (test code = HGB) 15.6 gm/dL 13.4-17.4 N Hematocrit (test code = HCT) 44.5 % 38.7-52.0 N MCV (test code = MCV) 95.2 fL 80-100 N MCH (test code = MCH) 33.3 pg 27.0-32.5 H MCHC (test code = MCHC) 35.0 g/dL 32.0-37.5 N RDW (test code = RDW) 13.2 % 11.5-14.5 N Platelet Count (test code = 178 K/cumm 140-440 N PLTCT) MPV (test code = MPV) 9.1 fL Diff Method (test code = DIFFM) Auto Neutrophil (test code = NEUT) 57.0 % 36-70 N Lymphocyte (test code = LYMPH) 32.2 % 12-44 N Monocyte (test code = MONO) 7.6 % 0-11 N Eosinophil (test code = EOS) 2.5 % 0-7 N Basophil (test code = BASO) 0.6 % 0-2 N Neutro Abs (test code = ANEUT) 4.5 K/cumm 1.6-7.4 N Lymph Abs (test code = ALYMPH) 2.6 K/cumm 0.5-4.6 N [place] Abs (test code = AMONO) 0.6 K/cumm 0.0-1.2 N Eos Abs (test code = AEOS) 0.19 K/cumm 0.00-0.74 N Baso Abs (test code = ABASO) 0.1 K/cumm 0.00-0.21 N
[2019-12-04 13:49] LABS: Urine Blood TRACE (NEG); Urine Glucose NEGATIVE (NEG); Urine Protein NEGATIVE (NEG); Urine Specific Gravity 1.015 (1.005-1.030); Urine pH 5.5 (5.0-7.0)
[2019-12-04 13:57] LABS: Barbiturates NEGATIVE (NEGATIVE); Benzodiazepines NEGATIVE (NEGATIVE); Cocaine NEGATIVE (NEGATIVE); METHAMPHETAM NEGATIVE (NEGATIVE); Methadone NEGATIVE (NEGATIVE); Opiates NEGATIVE (NEGATIVE); Phencyclidine NEGATIVE (NEGATIVE); THC Cannibis NEGATIVE (NEGATIVE)
[2019-12-04 14:02] LABS: Absolute Lymphocytes (CBC) 2.7 K/uL (0.7-4.9); Basophils % 0.8 % (0-1.3); Lymphocytes % 22.1 % (15.3-44.8); MPV 10.1 fL (7.6-11.3); RBC Red Blood Cell Count 4.87 M/uL (4.33-5.43)
[2019-12-04 14:04] LABS: Protime INR 0.95
[2019-12-04 14:13] LABS: ALT/SGPT 43 U/L (12-78); AST/SGOT 25 U/L (15-37); Albumin 3.9 g/dL (3.4-5.0); Alkaline Phosphatase 91 U/L (45-117); BUN Blood Urea Nitrogen 13 mg/dL (7-18); Bicarbonate 28 mmol/L (21-32); Bilirubin Direct 0.2 mg/dL (0-0.2); Bilirubin Total 0.6 mg/dL (0.2-1.0); Glucose Level 150 mg/dL (74-106); Potassium 3.2 mmol/L (3.5-5.1); Sodium Level 137 mmol/L (136-145)
--- NOTE | 2019-12-04 14:25 | EDPHYS ---
Physician Documentation [facility] Name: Gil Shahid Age: 44 yrs Sex: Male : 1975 Arrival Date: 12/04/2019 Time: 12:56 Bed 18 Private MD: ED Physician Roger Jacobsen HPI: 12/03 13:30 This 44 yrs old Male presents to ER via Law [employer] with complaints of cp Medication Refill. Historical: - Allergies: 13:03 horseradish; em 13:03 PENICILLINS; em - PMHx: 13:03 Depression; Schizophrenia; em - Immunization history:: Adult Immunizations unknown. - Social history:: Smoking status: Patient reports the use of cigarette tobacco products. Exam: 14:01 ECG was reviewed by the Attending Physician. cp Vital Signs: 12:59 BP 133 / 90; Pulse 107; Resp 18; Temp 97.8(O); Pulse Ox 95% on R/A; Weight 195.04 kg em (R); Height 6 ft. 3 in. (190.50 cm); Pain 0/10; 12:59 Body Mass Index 53.75 (195.04 kg, 190.50 cm) em MDM: 13:21 Patient medically screened. cp 12/03 13:26 Order name: EKG; Complete Time: 13:27 cp 12/03 13:26 Order name: Labs collected and sent; Complete Time: 13:36 cp 12/03 13:26 Order name: Urine Dipstick-Ancillary (obtain specimen); Complete Time: 13:51 cp 12/03 13:26 Order name: IV Saline Lock; Complete Time: 13:51 cp 12/03 13:26 Order name: Hepatic Function; Complete Time: 14:22 cp 12/03 13:42 Order name: Urine Dipstick--Ancillary (enter results); Complete Time: 14:22 eb 12/03 13:26 Order name: ETOH Level; Complete Time: 14:22 cp 12/03 13:26 Order name: PT-INR; Complete Time: 14:22 cp 12/03 13:26 Order name: Ptt, Activated; Complete Time: 14:22 cp 12/03 13:26 Order name: Salicylate; Complete Time: 14:22 cp 12/03 13:26 Order name: Urine Drug Screen; Complete Time: 14:22 cp 12/03 13:26 Order name: Acetaminophen; Complete Time: 14:22 cp 12/03 14:22 Interpretation: Reviewed. cp 12/03 13:26 Order name: Basic Metabolic Panel; Complete Time: 14:22 cp 12/03 14:22 Interpretation: Normal except: K 3.2; GLUC 150; GFR 78. cp 12/03 13:26 Order name: CBC with Diff; Complete Time: 14:22 cp 12/03 14:22 Interpretation: Normal except: WBC 12.2. cp EC:01 Rate is 103 beats/min. Rhythm is regular. [place] interval is normal. QRS interval is cp normal. QT interval is normal. T waves are Inverted in lead aVR. Interpreted by me. Reviewed by me. Administered Medications: 13:49 Drug: Nicotine 21 mg/24 hr 1 patches {Note: placed on right upper arm.} Route: em Transdermal; Site: affected area; 13:50 Drug: Geodon 20 mg Route: IM; Site: left deltoid; em Disposition: 12/04/19 14:25 Transfer ordered to [facility]. 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 - Reason for transfer: Higher level of care. - Accepting physician is Doctor. - Condition is Stable. - Problem is an acute exacerbation. - Symptoms are unchanged. Signatures: Dispatcher [employer] David Cummings RN RN em Severo Hall PA PA cp
--- NOTE | 2019-12-04 14:25 | ER ---
Nurse's Notes [facility] Name: Gil Shahid Age: 44 yrs Sex: Male : 1975 Arrival Date: 12/04/2019 Time: 12:56 Bed 18 Private MD: Diagnosis: Unspecified psychosis not due to a substance or known physiological condition Presentation: 12/03 12:59 Chief complaint: police officer crime prevention states pt was trying to stay at a motel but debt card em was declined, pt denies SI/HI, states he is hearing voices, police state he might be out of his medications because he is homeless and slept in the park the night prior, hx of schizophrenia. Coronavirus screen: Client denies travel out of the [place] in the last 14 days. Ebola Screen: Patient negative for fever greater than or equal to 101.5 degrees Fahrenheit, and additional compatible Ebola Virus Disease symptoms Patient denies exposure to infectious person. Patient denies travel to an Ebola-affected area in the 21 days before illness onset. No symptoms or risks identified at this time. Initial Sepsis Screen: Does the patient meet any 2 criteria? HR > 90 bpm. Does the patient have a suspected source of infection? No. Patient's initial sepsis screen is negative. Risk Assessment: Do you want to hurt yourself or someone else? Patient reports no desire to harm self or others. Onset of symptoms was December 04, 2019. 12:59 Method Of Arrival: Law Enforcement: Yola PELAYO em 12:59 Acuity: MEGA 2 em Historical: - Allergies: 13:03 horseradish; em 13:03 PENICILLINS; em - PMHx: 13:03 Depression; Schizophrenia; em - Immunization history:: Adult Immunizations unknown. - Social history:: Smoking status: Patient reports the use of cigarette tobacco products. Screenin:59 Abuse screen: Denies threats or abuse. Nutritional screening: No deficits noted. em Tuberculosis screening: No symptoms or risk factors identified. Fall Risk None identified. Assessment: 12:59 General: Appears in no apparent distress. comfortable, Behavior is calm, cooperative, em states there is crack in cigarettes, reports auditory hallucinations, denies pain. Pain: Denies pain. Neuro: Level of Consciousness is awake, alert, obeys commands, Oriented to person, place. Cardiovascular: Capillary refill < 3 seconds Patient's skin is warm and dry. Respiratory: Airway is patent Respiratory effort is even, unlabored, Respiratory pattern is regular, symmetrical. GI: Abdomen is round non-distended. Derm: Skin is intact, is healthy with good turgor, Skin is pink, warm \T\ dry. Musculoskeletal: Capillary refill < 3 seconds. 14:08 Reassessment: Patient appears in no apparent distress at this time. Patient and/or em family updated on plan of care and expected duration. Pain level reassessed. Patient is alert, oriented x 3, equal unlabored respirations, skin warm/dry/pink. Vital Signs: 12:59 BP 133 / 90; Pulse 107; Resp 18; Temp 97.8(O); Pulse Ox 95% on R/A; Weight 195.04 kg em (R); Height 6 ft. 3 in. (190.50 cm); Pain 0/10; 12:59 Body Mass Index 53.75 (195.04 kg, 190.50 cm) em ED Course: 12:56 Patient arrived in ED. 12:[address] RN is Primary Nurse. em 13:03 Triage completed. em 13:03 Arm band placed on. em 13:20 Severo Hall PA is PHCP. cp 13:20 Roger Jacobsen MD is Attending Physician. cp 13:44 Initial lab(s) drawn, by mi, sent to lab. Urine collected: clean catch specimen, clear, jp3 kely colored, Legal drug screen obtained per protocol. Inserted saline lock: 20 gauge in right antecubital area, using aseptic technique. Blood collected. 13:50 Bed in low position. Call light in reach. Warm blanket given. PO fluids given. Verbal jp3 reassurance given. Diet: Patient given snack. Patient given water. Tolerated well. Pulse ox on. NIBP on. Administered Medications: 13:49 Drug: Nicotine 21 mg/24 hr 1 patches {Note: placed on right upper arm.} Route: em Transdermal; Site: affected area; 13:50 Drug: Geodon 20 mg Route: IM; Site: left deltoid; em Outcome: 14:25 ER care complete, transfer ordered by . cp Signatures: David Street RN RN Holly Mederos RN [facility] Page, Severo, PA PA cp Pisarski, Gerardo jp3
== END ==
LOC: ER 12:51
DX: F29 Unspecified psychosis not due to a substance or known physiological condition (principal); F17.210 Nicotine dependence, cigarettes, uncomplicated; F20.9 Schizophrenia, unspecified; Z88.0 Allergy status to penicillin; Z91.018 Allergy to other foods
CPT/HCPCS: 93005; 85025; 80048; 36415; 80320; 80329 ×2; 85610; 80076; 80307 ×8; 85730; 81003; U0003; J3486